=== PATIENT | female | born 1945 | race Caucasian/White ===

== ENCOUNTER → 2019-03-22 00:01 | Outpatient (RCR) | payer MEDICARE, SELFPAY | LOC: WOUND 02-22 12:59 | PROVIDERS: Family Provider Nurse Practitioner Family; Visit Provider Thoracic Surgery (Cardiothoracic Vascular Surgery) | DX: I73.9 Peripheral vascular disease, unspecified (principal); L97.812 Non-pressure chronic ulcer of other part of right lower leg with fat layer exposed | CPT/HCPCS: 11042 ×5; 11045 ==

== ENCOUNTER 2019-04-19 08:34 | Outpatient (RCR) | payer MEDICARE, SELFPAY | END 2019-04-22 23:59 | disposition home or self-care (01) | LOC: WOUND 08:34 | PROVIDERS: Family Provider Nurse Practitioner Family; Visit Provider Thoracic Surgery (Cardiothoracic Vascular Surgery) | DX: I73.9 Peripheral vascular disease, unspecified (principal); L97.812 Non-pressure chronic ulcer of other part of right lower leg with fat layer exposed | CPT/HCPCS: 11042; 97597 ==

== ENCOUNTER 2019-05-17 08:37 | Outpatient (RCR) | payer MEDICARE, SELFPAY ==
--- NOTE | 2019-04-26 09:25 | USCV_ITS ---
Gabriella Hidalgo Age: 73 Gender: F : 1945 Exam Date: 04/26/2019 09:47 Ordering Phys: Augusto Biswas MD (Andy) ([email or web address]) Technologist: Bang Henriquez Exam Location: [facility] – [place] Indication: HISTORY: Lower extremity edema. PROCEDURES: Right duplex Venous Insufficiency study of the Deep and Superficial systems was carried out according to normal protocol with the patient in supine positon for deep system and dependent position for the superficial system. FINDINGS: All deep veins demonstrated compressibility without evidence of intraluminal thrombus or increased echogenicity. Spectral analysis of Doppler signals demonstrates normal response to compression maneuvers indicating patency without obstruction. Reflux determinations were made with the patient in the dependent position, the weight being on the contralateral leg. No notable reflux was seen at this time. The veins were found to be easily compressible with spontaneous blood flow. Non pulsatile flow pattern. CONCLUSIONS No evidence of DVT in the above-mentioned identifiable veins. No significant venous reflux was noted on the right side. The venous dimensions and the depth from the surface are as mentioned above Dr Reginald Zaldivar MD FACC (Electronically Signed) Final Date: 26 April 2019 19:11 S
== END 2019-05-21 23:59 | disposition home or self-care (01) ==
LOC: WOUND 08:37
PROVIDERS: Family Provider Nurse Practitioner Family; Visit Provider Thoracic Surgery (Cardiothoracic Vascular Surgery)
DX: R60.9 Edema, unspecified (principal); I73.9 Peripheral vascular disease, unspecified; L97.812 Non-pressure chronic ulcer of other part of right lower leg with fat layer exposed
CPT/HCPCS: 11042; 93971

== ENCOUNTER 2019-06-21 07:58 | Outpatient (RCR) | payer MEDICARE, SELFPAY | END 2019-06-21 23:59 | disposition home or self-care (01) | LOC: WOUND 07:58 | PROVIDERS: Family Provider Nurse Practitioner Family; Visit Provider Thoracic Surgery (Cardiothoracic Vascular Surgery) | DX: I73.9 Peripheral vascular disease, unspecified (principal); L97.812 Non-pressure chronic ulcer of other part of right lower leg with fat layer exposed | CPT/HCPCS: 11042 ==

== ENCOUNTER 2019-07-05 07:45 | Outpatient (RCR) | payer MEDICARE, SELFPAY | END 2019-07-21 23:59 | disposition home or self-care (01) | LOC: WOUND 07:45 | PROVIDERS: Family Provider Nurse Practitioner Family; Visit Provider Thoracic Surgery (Cardiothoracic Vascular Surgery) | DX: Z09 Encounter for follow-up examination after completed treatment for conditions other than malignant neoplasm (principal) | CPT/HCPCS: 99211; 99212 ==

== ENCOUNTER → 2020-07-30 11:37 | Outpatient (BNVA) | payer MEDICARE, SELFPAY | PROVIDERS: Family Provider Nurse Practitioner Family; Visit Provider Nurse Practitioner Family | DX: M25.561 Pain in right knee (principal); M11.261 Other chondrocalcinosis, right knee | CPT/HCPCS: 73562 ==

== ENCOUNTER → 2020-08-13 10:45 | Outpatient (BNVA) | payer MEDICARE, SELFPAY | PROVIDERS: Family Provider Nurse Practitioner Family; PCP Nurse Practitioner Family; Referring Provider Nurse Practitioner Family; Visit Provider Podiatrist Foot & Ankle Surgery | DX: M79.671 Pain in right foot (principal) | CPT/HCPCS: 73630 ==

== ENCOUNTER 2020-09-12 08:24 | Outpatient (CLI) | payer MEDICARE, SELFPAY ==
--- NOTE | 2020-09-12 08:41 | NM_ITS ---
WS: [id number] NUCLEAR MEDICINE WHOLE BODY BONE SCAN HISTORY: PAIN IN JOINT MULTIPLE SITES COMPARISON: None available. TECHNIQUE: The patient was injected with 6.1 mCi of Technetium 99m HDP and serial whole-body scintigr ams have been performed with anterior and posterior images. Moderate increased uptake along the disc space of L3-4. This corresponds to severe degenerative disc disease with joint space narrowing and subchondral cystic changes by the recent CT. There is addition al very minimal increased uptake in the lower cervical region which is probably degenerative. Increas ed uptake in the RIGHT knee along the medial tibial plateau. Otherwise soft tissue uptake is normal. There is uptake within the kidneys bilaterally NM/NM bone scan whole body* [id number] IMPRESSION: 1. Moderate increased uptake within the L3-4 disc space. Recommend follow-up M RI with and without contrast of the lumbar spine to exclude discitis and osteom yelitis. 2. Increased uptake in the medial RIGHT tibial plateau. Osteopenia is seen on a recent radiograph. No history of recent trauma or fall. Consider follow-up MR I RIGHT knee with and without contrast to exclude osteomyelitis.
--- NOTE | 2020-09-12 08:41 | XR_ITS ---
WS: [id number] Chest 2 views, 09/12/2020 Clinical Data: CIGARETTE SMOKER/ELEVATED C REACTIVE PROTEIN Comparison: PA and lateral chest, 05/26/2017. Findings: No nodules, masses or effusions are seen. The heart is normal. The pulmonary vascularity is not increased. No pneumonia or pneumothorax is seen. The aortic arch and descending aorta show calci fication and tortuosity. The diaphragms are flattened. The patient has had an anterior and posterior cervical fusion. XR/XR chest 2V* [id number] Impression: Atherosclerosis and hyperinflation.
--- NOTE | 2020-09-12 08:41 | CT_ITS ---
WS: [id number] CT ABDOMEN WITHOUT CONTRAST HISTORY: C-REACTIVE PROTEIN,SERUM,ELEVATED Contiguous single phase 5 mm axial imaging performed to the abdomen. Oral contrast has been provided. Coronal and sagittal reformats are submitted. All CT scans at [facility] use at least on e of these dose optimization techniques: automated exposure control; mA and/or kV adjustment per adal ent size (includes targeted exams where dose is matched to clinical indication); or iterative reconst ruction. CONTRAST: None DLP: 605.44 mGy.cm COMPARISON: None available. Lower thorax: 2 adjacent 3 mm nodules at the RIGHT lung base are new since 12/09/2018. Moderate enlarg ement of the heart. Small pericardial effusion. Liver: Normal. No intrahepatic dilatation. Gallbladder: Normal. Pancreas: Poorly visualized pancreas. No abnormality identified. Spleen: Normal. Adrenals: Normal. Right kidney: Mild perinephric stranding. No obstruction. Left kidney: Mild perinephric stranding with no obstruction. Aorta: Moderate atherosclerotic plaque with no aneurysm. GI tract: Visualized colon within the abdomen demonstrates significant constipation. No obstructive p attern. No adenopathy identified on this unenhanced study. Abdominal wall: No hernia. Visualized osseous structures: Advanced degenerative disc disease in the lumbar spine. Vacuum disc ph enomenon at L1-2, L2-3 and L3-4. Severe disc space narrowing at L2-3 and L3-4. CT/CT abdomen wo con [id number] IMPRESSION: 1. Mild bilateral perinephric stranding with no renal obstruction. 2. Constipation. 3. Severe degenerative disc disease at L2-3 and L3-4. 4. Moderate atherosclerosis aorta. 5. New, subcentimeter noncalcified nodules at the RIGHT lung base. Recommend f ollow-up chest CT in 12 months.
[2020-09-12] MEDS: iohexol 300 mg/mL 50 mL Btl PO (10:53)
== END 2020-09-12 08:25 | disposition home or self-care (01) ==
PROVIDERS: PCP Nurse Practitioner Family; Visit Provider Nurse Practitioner Family
DX: F17.210 Nicotine dependence, cigarettes, uncomplicated (principal); M25.50 Pain in unspecified joint; R79.82 Elevated C-reactive protein (CRP); I70.90 Unspecified atherosclerosis; K59.00 Constipation, unspecified; M51.36 Other intervertebral disc degeneration, lumbar region; I70.0 Atherosclerosis of aorta; R91.8 Other nonspecific abnormal finding of lung field
CPT/HCPCS: 71046; 74150; 78306; A9561

== ENCOUNTER 2020-09-27 18:47 | Inpatient (IN) | payer MEDICARE, SELFPAY ==
[2020-09-27 18:54] VITALS: BP 181/63; PULSE 62; RESP 16; TEMP 36.6; O2SAT 93; BMI 20.7
--- NOTE | 2020-09-27 19:11 | XRR_ITS ---
PROCEDURE INFORMATION: Exam: XR Left Tibia and Fibula Exam date and time: 09/27/2020 7:11 PM Age: 75 years old Clinical indication: Pain; Lower leg; Left; Additional info: Fall, injury TECHNIQUE: Imaging protocol: XR Left tibia and fibula. Views: 2 views. COMPARISON: 1. CTA AbdAorta Runoff Leg [id number] 12/09/2018 9:48 AM 2. CR (LOW EXM, ) 09/27/2020 7:26:32 PM FINDINGS: Bones/joints: No fracture or dislocation. Soft tissues: Soft tissues unremarkable. XR/XR tibia fibula LT 2V [id number] IMPRESSION: No acute radiographic findings.
--- NOTE | 2020-09-27 19:11 | XRR_ITS ---
PROCEDURE INFORMATION: Exam: XR Right Hip Exam date and time: 09/27/2020 7:11 PM Age: 75 years old Clinical indication: Hip pain; Right hip; Additional info: Injury, fall, add pelvis TECHNIQUE: Imaging protocol: XR Right hip. Views: 1 view hip with pelvis when performed. Other technique: COMPARISON MORE: CTA AbdAorta Runoff Leg [id number] 12/09/2018 9:48:12 AM COMPARISON: No relevant prior studies available. FINDINGS: Bones/joints: No evidence of fracture or dislocation. Soft tissues: No acute soft tissue abnormality. XR/XR hip RT 2-3V wo/w pel* [id number] IMPRESSION: No acute radiographic findings.
--- NOTE | 2020-09-27 19:11 | ED_ITS ---
HPI - Fall General: Chief Complaint: Fall Stated Complaint: FALL/ HIP PAIN/ ELBOW PAIN Time Seen by Provider: 09/27/20 19:01 History of Present Illness: HPI Narrative: 75-year-old female comes in today for trip and fall. Patient was walking up the sidewalk to go back in the house when she missed stepped causing her to fall onto her right side. Patient has some abrasions to the right forearm and upper arm with ecchymosis. Patient reports pain to the right hip area. Patient also has some tenderness to the left ankle. Patient has a history of fibromyalgia, GERD, overactive bladder, and restless legs. Patient takes no medication for her blood pressure. Patient does report taking a baby aspirin daily. Patient received medication in route for pain in the ambulance. Patient responds appropriately to questions. Patient appears well. Patient appears in mild to moderate pain at this time. Review of Systems General: Reports: 10 or more systems reviewed and unremarkable except in HPI and below Musc: Reports: other (Right hip pain, left ankle pain.) Skin/Breast: Reports: other (Bruising and skin tears to the right arm.) [facility] [place] ED PFSH: Medical History Fibromyalgia Social History Smoking and tobacco status: current every day smoker Physical Exam Const: COMMON NORMALS: no acute distress and patient oriented x3 GENERAL APPEARANCE: cooperative HENMT: COMMON NORMALS: normocephalic and Normal external nose present HEAD & SCALP: normal to inspection and normocephalic NOSE: Normal external nose present MOUTH: Normal oral and palatal mucosa present Eye: GENERAL EYE: appearance normal, both eyes and all related structures Neck/C-Spine: COMMON NORMALS: full ROM Chest: COMMONS NORMALS: normal inspection of the chest Resp: COMMON NORMALS: normal respiratory effort EFFORT & INSPECTION: Yes able to speak in complete sentences Cardio: COMMON NORMALS: regular rate and regular rhythm RATE: regular rate RHYTHM: regular rhythm GI: COMMON NORMALS: non-tender : COMMON NORMALS: Yes no CVA tenderness BLADDER/KIDNEY EXAM: Yes no CVA tenderness Back/Pelvis: COMMON NORMALS: no CVA tenderness and thoracic and lumbar spine normal to inspection Extremity: NARRATIVE EXTREMITY EXAM: Tenderness to the right pelvis hip area. Swelling is noted to the left ankle. Bruising is noted to the left lower leg. Neuro: COMMON NORMALS: patient oriented x3 and moves all extremities Psych: COMMON NORMALS: mental status grossly normal and cooperative Skin: NARRATIVE SKIN EXAM: Abrasions and skin tears are noted to the right upper and lower arm. Course Vital Signs: Vital signs: Vital Signs Temperature 97.8 F 09/27/20 18:54 Pulse Rate 91 09/27/20 23:26 Respiratory Rate 17 09/27/20 23:26 Blood Pressure 208/76 09/27/20 23:26 Pulse Oximetry 97 09/27/20 23:26 MDM - Fall MDM Narrative: Medical decision making narrative: Patient came in for evaluation after a slip and fall at home. Patient reports right hip pain. On exam patient is guarded with any movement to the right hip. Distal pulses are intact. There is no swelling in the left lower leg also. Patient has some skin tears to the right upper arm and right mid arm. Differential diagnosis includes hip fracture, contusion, sprain. X-ray of the hip was inconclusive but patient remained in pain without any relief. CT scan was ordered and noted a minimally displaced comminuted fracture of the intertrochanteric hip. I reviewed this with Dr. Page who recommended we talked to Dr. Hill to admit patient for repair of the hip. Lab Data: Labs: Lab Results 09/27/20 09/27/20 Range/Units 17:50 17:50 WBC 9.1 (4.0-10.0) 10^3/ uL RBC 3.44 L (4.1-5.3) 10^6/u L Hgb 9.8 L (11.5-15.3) g/dL Hct 32.5 L (37.0-47.0) % MCV 94.5 (81-99) fL MCH 28.5 (28.0-34.0) pg MCHC 30.2 (30.0-36.0) g/dL RDW 13.4 (12.1-15.1) % Plt Count 402 H (130-400) 10^3/c mm MPV 10.3 (7.4-10.4) fL Neut % (Auto) 68.7 % Lymph % (Auto) 20.5 % [place] % (Auto) 8.0 % Eos % (Auto) 1.6 % Baso % (Auto) 0.8 % Neut # (Auto) 6.24 (1.8-7.7) 10^3/u L Lymph # (Auto) 1.9 (0.8-4.8) 10^3/u L [place] # (Auto) 0.7 (0.2-0.9) 10^3/u L Eos # (Auto) 0.2 (0.0-0.8) 10^3/u L Baso # (Auto) 0.1 (0.0-0.1) 10^3/u L Nucleated RBC % (a uto) 0 % Nucleated RBCs # 0.0 /100WBC Sodium 139 (136-145) mmol/L Potassium 4.3 (3.5-5.1) mmol/L Chloride 102 (98-107) mmol/L Carbon Dioxide 27 (22-29) mmol/L Anion Gap 14.3 (5-19) BUN 16 (8-23) mg/dL Creatinine 1.3 H (0.5-0.9) mg/dL GFR Calculation Not Reportable Glucose 98 (65-115) mg/dL Calculated Osmolal ity 289 (285-295) mOsm/k g Calcium 9.7 (8.5-10.5) mg/dL Total Bilirubin 0.2 (0.15-1.2) mg/dL AST 12 (0-32) U/L ALT 7 (0-33) U/L Alkaline Phosphata se 103 (35-105) IU/L Total Protein 6.4 L (6.6-8.7) g/dL Albumin 3.5 (3.5-5.2) g/dL Globulin 2.9 (1.3-4.6) g/dL Discharge Plan Discharge Prescriptions: No Action mupirocin 2 % ointment 1 applic topical TID Qty: 22 RF: 2 terbinafine HCl [Lamisil AT] 1 % cream 1 applic topical BID RF: 0 terbinafine HCl 250 mg tablet 250 mg PO DAILY RF: 0 clindamycin HCl 300 mg capsule 300 mg PO BID RF: 0 mupirocin 2 % ointment 1 applic topical TID RF: 0 pramipexole [Mirapex] 0.125 mg tablet 0.125 mg PO DAILY RF: 0 lisinopril-hydrochlorothiazide 10-12.5 mg tablet 1 tab PO DAILY RF: 0 folic acid 1 mg tablet 1 mg PO DAILY RF: 0 megestrol 40 mg tablet 40 mg PO DAILY RF: 0 omeprazole 20 mg capsule,delayed release(DR/EC) 20 mg PO BID RF: 0 naproxen 500 mg tablet 500 mg PO BID RF: 0 Asmanex Twisthaler 220 mcg/ actuation (120) aerosol powdr breath activated 2 inh inhalation BID RF: 0 montelukast [Singulair] 10 mg tablet 10 mg PO DAILY RF: 0 furosemide 40 mg tablet 40 mg PO DAILY RF: 0 tramadol 50 mg tablet 50 mg PO BID PRNRF: 0 Coding Level of Care Code ED Clinical Dental Technician for Antoling Fwd Exam Comprehensive
--- NOTE | 2020-09-27 19:13 | XRR_ITS ---
PROCEDURE INFORMATION: Exam: XR Right Knee Exam date and time: 09/27/2020 7:13 PM Age: 75 years old Clinical indication: Pain; Knee; Right; Additional info: Fall injury TECHNIQUE: Imaging protocol: XR Right knee. Views: 3 views. COMPARISON: 1. CTA AbdAorta Runoff Leg [id number] 12/09/2018 9:48 AM 2. CR XR hip RT 2-3V wo/w pel* [id number] 09/27/2020 7:21:35 PM 3. CR XR tibia fibula LT 2V [id number] 09/27/2020 7:17:58 PM FINDINGS: Bones/joints: No fracture or dislocation. Narrowing of the lateral compartment of the knee with small osteophytes. Soft tissues: No acute findings. Surgical clips and vascular graft incidentally noted. XR/XR knee RT 3V* [id number] IMPRESSION: No acute radiographic findings.
[2020-09-27 19:59] VITALS: BP 191/72; PULSE 75; RESP 17; O2SAT 92
--- NOTE | 2020-09-27 20:15 | CTR_ITS ---
PROCEDURE INFORMATION: Exam: CT Right Lower Extremity Without Contrast, Hip Exam date and time: 09/27/2020 8:15 PM Age: 75 years old Clinical indication: Injury or trauma; Blunt trauma; Right; Prior surgery; Surgery type: Femoral stent. ; Patient HX: Fall. C/O RT hip pain. ; Additional info: Fall injury, inconclusive xray TECHNIQUE: Imaging protocol: CT of the Right lower extremity without contrast was performed. Exam focused on the hip. Sagittal and coronal reformatted images were created and reviewed. Radiation optimization: All CT scans at this facility use at least one of these dose optimization techniques: automated exposure control; mA and/or kV adjustment per patient size (includes targeted exams where dose is matched to clinical indication); or iterative reconstruction. COMPARISON: 1. CTA AbdAorta Runoff Leg [id number] 12/09/2018 9:48 AM 2. CR XR hip RT 2-3V wo/w pel* [id number] 09/27/2020 7:21:35 PM RADIATION DOSE METRICS: Total DLP (mGy-cm): 374.18 FINDINGS: Bones/joints: There is a mildly comminuted and mildly displaced intertrochanteric fracture of the right femur. Small osteophytes at the the right acetabulum. Bones are diffusely osteopenic. Small right hip joint effusion. Soft tissues: Mild soft tissue swelling around the proximal right femur. No radiopaque foreign body. Vasculature: There is a long stent in the visualized right femoral artery. Lymph nodes: No lymphadenopathy. Urinary bladder: The bladder is incompletely filled, which can limit evaluation. No focal abnormality in the bladder however. Reproductive: Patient has had a previous hysterectomy. The ovaries are not definitely visualized, not an expected in a postmenopausal female. This may be due to ovarian atrophy. Alternatively, the patient may have had a previous bilateral oophorectomy. CT/CT hip RT wo con* [id number] IMPRESSION: 1. Mildly comminuted and mildly displaced intertrochanteric fracture of the right femur. 2. Small right hip joint effusion. 3. Mild soft tissue swelling around the proximal right femur. 4. Incidental/nonacute findings are listed in the report. Radiation Dose CTDIVOL = (mGy): DLP = 374.18 (mGy-cm)
[2020-09-27] MEDS: ondansetron 2 mg/ML SDV 2 mL 4 MG IVP (22:09)
[2020-09-27] MEDS: morphine 4 mg/mL SDV 1 mL 2 MG IVP (22:10)
[2020-09-27 22:11] VITALS: BP 159/109; PULSE 93; RESP 19; O2SAT 92
--- NOTE | 2020-09-27 22:13 | PC.NURSE ---
patient placed on 2L oxygen via nasal cannula after morphine administration
--- NOTE | 2020-09-27 23:12 | XRR_ITS ---
PROCEDURE INFORMATION: Exam: XR Chest Exam date and time: 09/27/2020 11:12 PM Age: 75 years old Clinical indication: Injury or trauma; Fall; Blunt trauma (contusions or hematomas); Additional info: Hip fracture TECHNIQUE: Imaging protocol: XR of the chest. Views: 1 view. COMPARISON: CR XR chest 2V* [id number] 09/12/2020 9:10 AM FINDINGS: Lungs: Lungs are clear bilaterally. Pleural spaces: No pleural effusion. No pneumothorax. Heart/Mediastinum: Stable mild enlargement of the cardiac silhouette. Mediastinal contours are unremarkable. Vasculature: Stable vascular calcifications in the aorta. Bones/joints: No acute fracture. Bones are diffusely osteopenic. Degenerative changes in the spine and shoulders. XR/XR chest 1V portable [id number] IMPRESSION: 1. No acute cardiopulmonary process. 2. No acute fracture. 3. CT scan of the chest with contrast would be recommended if there is continuing clinical concern for thoracic injury. 4. Incidental/nonacute findings are listed in the report.
[2020-09-27] MEDS: morphine 4 mg/mL SDV 1 mL IVP (23:24)
[2020-09-27 23:25] LABS: Basophils # 0.1 10^3/uL (0.0-0.1); Basophils % 0.8 %; Eosinophils # 0.2 10^3/uL (0.0-0.8); Eosinophils % 1.6 %; Hematocrit 32.5 % (37.0-47.0); Hemoglobin 9.8 g/dL (11.5-15.3); Lymphocytes # 1.9 10^3/uL (0.8-4.8); Lymphocytes % 20.5 %; Mean Corpuscular HGB Conc 30.2 g/dL (30.0-36.0); Mean Corpuscular Hemoglobin 28.5 pg (28.0-34.0); Mean Corpuscular Volume 94.5 fL (81-99); Mean Platelet Volume 10.3 fL (7.4-10.4); Monocytes # 0.7 10^3/uL (0.2-0.9); Neutrophils # 6.24 10^3/uL (1.8-7.7); Neutrophils % 68.7 %; Nucleated Red Blood Cells % 0 %; Platelet Count 402 10^3/cmm (130-400); Red Blood Count 3.44 10^6/uL (4.1-5.3); Red Cell Distribution Width 13.4 % (12.1-15.1); White Blood Count 9.1 10^3/uL (4.0-10.0)
[2020-09-27 23:26] VITALS: BP 208/76; PULSE 91; RESP 17; O2SAT 97
[2020-09-27 23:35] LABS: Alanine Aminotransferase 7 U/L (0-33); Albumin Level 3.5 g/dL (3.5-5.2); Alkaline Phosphatase 103 IU/L (35-105); Anion Gap 14.3 (5-19); Aspartate Amino Transferase 12 U/L (0-32); Blood Urea Nitrogen 16 mg/dL (8-23); Calcium 9.7 mg/dL (8.5-10.5); Carbon Dioxide 27 mmol/L (22-29); Chloride 102 mmol/L (98-107); Globulin 2.9 g/dL (1.3-4.6); Glucose 98 mg/dL (65-115); Osmolality Calculated 289 mOsm/kg (285-295); Potassium 4.3 mmol/L (3.5-5.1); Sodium 139 mmol/L (136-145); Total Bilirubin 0.2 mg/dL (0.15-1.2); Total Protein 6.4 g/dL (6.6-8.7)
[2020-09-28] VITALS (30 sets, daily range): BP systolic 110–206; BP diastolic 62–118; PULSE 80–130; RESP 15–23; TEMP 36.3–38.1; O2SAT 89–100
--- NOTE | 2020-09-28 | SCC_ITS ---
Procedure Done: Excision right hip with intramedullary device 45.6 seconds of fluoroscopic guidance, for a cumulative dose of 3.15 mGy, was provided to Dr. Hill by the radiology department. C-arm images of the RIGHT hip were saved for the patient's permanent record. [facility]hl[facility]
--- NOTE | 2020-09-28 04:06 | PM.HP ---
Providers/Chief Complaint Admitting Physician: Yanique Anne MD Primary Care Provider: Crystal Mckee Chief Complaint: FALL/ HIP PAIN/ ELBOW PAIN History of Present Illness Gabriella Hidalgo is a 75 year old female who presented to the emergency room after a fall at home. She is not entirely sure what happened but she was walking into her house and she fell landing on her right side. She hit her arm and her hip and her foot. The hip was the primary point contact. Her was at home at the time. Ambulance was called and brought her in. They wrapped her upper extremity which had some bleeding abrasions/skin tears in gauze. In the emergency room she was found to have minimally displaced and comminuted intertrochanteric fracture of the right femur. She required a couple of doses of pain medications both in route and in the emergency room to get comfortable. She had multiple bruises to both lower extremities and upper extremities. After pain medication received in the emergency room is not able to really discern for me if she has had multiple falls lately or if this was the only 1. She denied any loss of consciousness, chest pain, palpitations or other preceding symptoms. She does not necessarily remember tripping over anything or her legs giving out. ER notes indicate that she missed stepped . Her pressures were elevated in the emergency room but did respond some to pain medications. She has no personal history of coronary artery disease, chronic kidney disease, bleeding problems. She does have a history of peripheral artery disease and underwent previous femoropopliteal bypass. She has hypertension that she does not chronically take medications for by her report Review of Systems Const: Denies: fever(s) or chills Eyes: Denies: change in vision ENMT: Denies: throat pain or nasal congestion Card: Denies: chest pain, palpitations or edema Resp: Reports: dyspnea (Sometimes, not acute) and productive cough (Sometimes, not new) GI: Denies: abdominal pain, nausea, vomiting, diarrhea or constipation : Reports: urinary frequency and urinary incontinence Musc: Reports: extremity pain and muscle cramps Skin/Breast: Denies: rash, pruritus or sores Neuro: Denies: headache(s), numbness in extremities or weakness in extremities Psych: Denies: anxiety Wesley/Lymph: Denies: easy bruising or easy bleeding Medications/Allergies Home Medications Medication Instructions Recorded Confirmed Last Taken Type clindamycin HCl 300 mg capsule 300 mg PO BID 08/13/20 09/05/20 Unknown History folic acid 1 mg tablet 1 mg PO DAILY 08/13/20 09/05/20 Unknown History furosemide 40 mg tablet 40 mg PO DAILY 08/13/20 09/05/20 Unknown History lisinopril 10 1 tab PO DAILY 08/13/20 09/05/20 Unknown History mg-hydrochlorothiazide 12.5 mg tablet megestrol 40 mg tablet 40 mg PO DAILY 08/13/20 09/05/20 Unknown History mometasone 2 inh INHALATION BID 08/13/20 09/05/20 Unknown History montelukast 10 mg tablet 10 mg PO DAILY 08/13/20 09/05/20 Unknown History mupirocin 2 % topical ointment 1 applic TOPICAL TID 08/13/20 09/05/20 Unknown History mupirocin 2 % topical ointment 1 applic TOPICAL TID #22 g 08/13/20 09/05/20 Unknown Rx naproxen 500 mg tablet 500 mg PO BID 08/13/20 09/05/20 Unknown History omeprazole 20 mg capsule,delayed 20 mg PO BID 08/13/20 09/05/20 Unknown History release pramipexole 0.125 mg tablet 0.125 mg PO DAILY 08/13/20 09/05/20 Unknown History terbinafine HCl 1 % topical cream 1 applic TOPICAL BID 08/13/20 09/05/20 Unknown History terbinafine HCl 250 mg tablet 250 mg PO DAILY 08/13/20 09/05/20 Unknown History tramadol 50 mg tablet 50 mg PO BID PRN 08/13/20 09/05/20 Unknown History Allergies Allergy/AdvReac Type Severity Reaction Status Date / Time cephalexin [From Keflex] Allergy Severe unknown Verified 09/27/20 19:02 zolpidem [From Ambien] Allergy Intermediate unknown Verified 09/27/20 19:02 PFSH Acute PFSH: Medical History (Updated 09/28/20 @ 04:52 by Yanique Anne MD) COVID-19 vaccine administered Kadeem & Kadeem Fibromyalgia Hypertension Osteoarthritis Overactive bladder PAD (peripheral artery disease) RLS (restless legs syndrome) Surgical History (Updated 09/28/20 @ 04:11 by Yanique Anne MD) History of hysterectomy History of neck surgery S/P femoral-popliteal bypass surgery Family History (Updated 09/28/20 @ 04:47 by Yanique Anne MD) Other Heart disease Hypertension Stroke Denies family history of Anesthesia complication Bleeding disorder Social History (Updated 09/28/20 @ 04:47 by Yanique Anne MD) Smoking and tobacco status: former smoker Quit status (tobacco): has quit using tobacco Former quit date comment: Quit smoking 1 month ago Alcohol intake: current Alcohol intake frequency: holidays/special occasions only Substance/Drug Use: never Marital status: Vitals/I&O/Wt Last Vital Signs Temp 97.8 F 09/27/20 18:54 Pulse 91 09/27/20 23:26 Resp 17 09/27/20 23:26 BP 208/76 09/27/20 23:26 Pulse Ox 97 09/27/20 23:26 Weight last 48 hrs Weight 49.895 kg Physical Exam Narrative: EXAM NARRATIVE: Constitutional: Sleepy from pain medication but when can awake and alert and oriented, thin build HEENT: Normocephalic, atraumatic, pupils are not pinpoint, equal, extraocular movements intact, oropharynx clear Neck: Supple Respiratory: Clear to auscultation bilaterally Cardiovascular: Regular rate and rhythm, occasional extra beat, no murmurs Abdomen: Soft, nontender, hypoactive bowel sounds : Bolton catheter, normal external genitalia Extremities: Right upper extremity with some swelling around the elbow but no significant pain with movement or palpation of olecranon process, right lower extremity is currently internally rotated, able to move feet, some swelling in areas of bruises Skin: Skin tears to right upper extremity between elbow and shoulder with adherent gauze at the time of my examination, did not remove until we can get dressing moist to evaluate. There is abrasion/skin tear at the left elbow without active bleeding, dried blood. Other bruising noted to right forearm and to a lesser degree left forearm. Patient has bruising to both lower extremities. The left medial elam near the tibial plateau with some swelling at the site of a hematoma and scattered ecchymoses around this. Right elam with ecchymoses and bruising without the same degree of swelling. Neuro: Currently sleepy from pain medications but speech is clear, face symmetric, toes are downgoing, able to move both arms and feet Urinary Catheter Management^: Bolton: Cath Placed During This Visit: yes Urinary Catheter Date of Insertion: 09/28/20 Urinary Catheter Time of Insertion: 03:20 Data : 09/27/20 17:50 09/27/20 17:50 A&P Assessment and plan (1) Fall at home: Sounds mechanical by description Status: Acute Qualifiers: Encounter type: initial encounter Qualified Code(s): W19.XXXA - Unspecified fall, initial encounter; Y92.009 - Unspecified place in unspecified non-institutional (private) residence as the place of occurrence of the external cause (2) Intertrochanteric fracture of right femur: Status: Acute Qualifiers: Encounter type: initial encounter Fracture type: closed Fracture alignment: displaced Qualified Code(s): S72.141A - Displaced intertrochanteric fracture of right femur, initial encounter for closed fracture (3) Hypertension: Currently not controlled, exacerbated by pain Status: Chronic Qualifiers: Hypertension type: essential hypertension Qualified Code(s): I10 - Essential (primary) hypertension (4) PAD (peripheral artery disease): With a history of femoropopliteal bypass Status: Chronic (5) Fibromyalgia: Status: Chronic (6) Nicotine dependence, cigarettes, in remission: Recently quit Status: Chronic Additional A&P Information Inpatient admission Pain control Orthopedic consultation for surgical evaluation Monitor blood pressures with pain medications and initiate treatment if needed IV fluids this evening Bolton catheter Check UA and EKG Type and screen SCDs for DVT prophylaxis Need to clarify home medications and address accordingly postoperatively Monitor respiratory status child protective 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 Plan for orthopedic consultation, surgical intervention and pain control. Comorbid issues and other plans as noted above. Coding Level of Care Code Acute Measurement Advisor for Chg Fwd Diagnoses Fall at home W19.XXXA; Y92.009 Encounter type: initial encounter Intertrochanteric fracture of right femur S72.141A Encounter type: initial encounter Fracture type: closed Fracture alignment: displaced Hypertension I10 Hypertension type: essential hypertension PAD (peripheral artery disease) I73.9 Fibromyalgia M79.7 Nicotine dependence, cigarettes, in remission F17.211
--- NOTE | 2020-09-28 04:30 | ECG_ITS ---
[facility] Test Date: 2020-09-28 Pat Name: Gabriella Hidalgo Department: Room: ED Gender: Female Re Etcher: : 1945 Requested By: Yanique Anne Order Number: [id number] Reading MD: MONE LESTER Measurements Intervals [place] Rate: 83 P: 73 TX: 166 QRS: 60 QRSD: 87 T: 72 QT: 350 QTc: 413 Interpretive Statements SINUS RHYTHM WITH OCCASIONAL SUPRAVENTRICULAR PREMATURE COMPLEXES POSSIBLE LEFT ATRIAL ENLARGEMENT [-0.1mV P WAVE IN V1/V2] ANTEROSEPTAL MYOCARDIAL INFARCTION [40+ ms Q WAVE IN V1-V4], OF INDETERMINATE AGE MODERATE T-WAVE ABNORMALITY, CONSIDER LATERAL ISCHEMIA [-0.1+ mV T WAVE IN I/aVL/V5/V6] Compared to ECG 02/28/2019 13:33:55 T-wave abnormality now present Possible ischemia now present Myocardial infarct finding still present Electronically Signed On 09-28-2020 14:30:10 CDT by MONE LESTER [email or web address]
[2020-09-28 06:26] LABS: Basophils # 0.1 10^3/uL (0.0-0.1); Basophils % 0.6 %; Eosinophils % 0.1 %; Hematocrit 34.6 % (37.0-47.0); Hemoglobin 10.8 g/dL (11.5-15.3); Lymphocytes # 0.9 10^3/uL (0.8-4.8); Lymphocytes % 6.1 %; Mean Corpuscular HGB Conc 31.2 g/dL (30.0-36.0); Mean Corpuscular Hemoglobin 28.6 pg (28.0-34.0); Mean Corpuscular Volume 91.8 fL (81-99); Mean Platelet Volume 9.9 fL (7.4-10.4); Monocytes # 0.9 10^3/uL (0.2-0.9); Monocytes % 6.6 %; Neutrophils # 12.07 10^3/uL (1.8-7.7); Neutrophils % 86.2 %; Nucleated Red Blood Cells % 0 %; Platelet Count 366 10^3/cmm (130-400); Red Blood Count 3.77 10^6/uL (4.1-5.3); Red Cell Distribution Width 13.2 % (12.1-15.1)
[2020-09-28 06:34] LABS: Add Urine Microscopic? YES; Bacteria Urine 2+ /hpf; Bilirubin Urine Neg (Negative); Blood Urine 2+ (Negative); Glucose Urine UA Norm (Normal); Ketones Urine Negative (Negative); Leukocyte Esterase Urine Negative (Negative); Nitrate Urine Positive (Negative); Protein Urine Neg (Negative); Squamous Epithelial Cell Urine 0-4 /hpf (0-5); Sulfosalicylic Acid Urine Negative (Negative); Urine Appearance Clear (CLEAR); Urine Color Straw (Yellow); Urobilinogen Urine Norm (Negative); WBC Urine 15-25 /hpf (0-5); pH Urine 8 (5-7)
[2020-09-28 06:35] LABS: Add Urine Culture? Yes
--- NOTE | 2020-09-28 07:45 | P.CONIM_ITS ---
Providers/Reason For Consult Consulting Physician/Specialty*: MD Liz; orthopedic surgery Reason for Consult*: Right intertrochanteric hip fracture Attending Physician: Yanique Anne MD Primary Care Provider: Crystal Mckee History of Present Illness History of Present Illness Gabriella Hidalgo is a 75 year old female I have seen in the past for right lower extremity and degenerative changes in her knee. She currently fell yesterday outside on her right hip with immediate pain and inability to bear weight she was transferred to our emergency room where radiographs and a CT scan of the hip were obtained revealing a right intertrochanteric hip fracture. She describes a abrasion to her right arm but really no other extremity pain. She currently is in the emergency room where she is awaiting a bed for admission. She has a quite sedate and gives no contributing history Meds/Allergies Home Medications and Allergies Home Medications Medication Instructions Recorded Confirmed Last Taken Type clindamycin HCl 300 mg capsule 300 mg PO BID 08/13/20 09/05/20 Unknown History folic acid 1 mg tablet 1 mg PO DAILY 08/13/20 09/05/20 Unknown History furosemide 40 mg tablet 40 mg PO DAILY 08/13/20 09/05/20 Unknown History lisinopril 10 1 tab PO DAILY 08/13/20 09/05/20 Unknown History mg-hydrochlorothiazide 12.5 mg tablet megestrol 40 mg tablet 40 mg PO DAILY 08/13/20 09/05/20 Unknown History mometasone 2 inh INHALATION BID 08/13/20 09/05/20 Unknown History montelukast 10 mg tablet 10 mg PO DAILY 08/13/20 09/05/20 Unknown History mupirocin 2 % topical ointment 1 applic TOPICAL TID 08/13/20 09/05/20 Unknown History mupirocin 2 % topical ointment 1 applic TOPICAL TID #22 g 08/13/20 09/05/20 Unknown Rx naproxen 500 mg tablet 500 mg PO BID 08/13/20 09/05/20 Unknown History omeprazole 20 mg capsule,delayed 20 mg PO BID 08/13/20 09/05/20 Unknown History release pramipexole 0.125 mg tablet 0.125 mg PO DAILY 08/13/20 09/05/20 Unknown History terbinafine HCl 1 % topical cream 1 applic TOPICAL BID 08/13/20 09/05/20 Unknown History terbinafine HCl 250 mg tablet 250 mg PO DAILY 08/13/20 09/05/20 Unknown History tramadol 50 mg tablet 50 mg PO BID PRN 08/13/20 09/05/20 Unknown History Allergies Allergy/AdvReac Type Severity Reaction Status Date / Time cephalexin [From Keflex] Allergy Severe unknown Verified 09/27/20 19:02 zolpidem [From Ambien] Allergy Intermediate unknown Verified 09/27/20 19:02 PFSH Acute PFSH: Medical History (Updated 09/28/20 @ 04:52 by Yanique Anne MD) COVID-19 vaccine administered Kadeem & Kadeem Fibromyalgia Hypertension Osteoarthritis Overactive bladder PAD (peripheral artery disease) RLS (restless legs syndrome) Surgical History (Updated 09/28/20 @ 04:11 by Yanique Anne MD) History of hysterectomy History of neck surgery S/P femoral-popliteal bypass surgery Family History (Updated 09/28/20 @ 04:47 by Yanique Anne MD) Other Heart disease Hypertension Stroke Denies family history of Anesthesia complication Bleeding disorder Social History (Updated 09/28/20 @ 04:47 by Yanique Anne MD) Smoking and tobacco status: former smoker Quit status (tobacco): has quit using tobacco Former quit date comment: Quit smoking 1 month ago Alcohol intake: current Alcohol intake frequency: holidays/special occasions only Substance/Drug Use: never Marital status: Vitals/I&O/Wt Last Vital Signs Temp 97.8 F 09/27/20 18:54 Pulse 89 09/28/20 06:11 Resp 19 H 09/28/20 06:11 BP 189/65 09/28/20 06:11 Pulse Ox 100 09/28/20 06:11 09/27/20 09/28/20 09/28/20 22:59 06:59 14:59 Output Total 450 / 450 Balance -450 / -450 Weight last 48 hrs Weight 110 lb Physical Exam Narrative: EXAM NARRATIVE: The patient is arousable the patient is arousable to voice but sleepy HEAD: Normocephalic/atraumatic. NECK: Soft supple nontender. HEART: Normal heart sounds, regular rhythm. CHEST: Clear to auscultation. ABDOMEN: Soft nontender nondistended. RIGHT HIP: There is no visible malalignment of the right hip. She has exquisite pain with motion of the right hip. She will flex extend her toes on the right ankle. Sensation is intact to light touch. Urinary Catheter Management^: Bolton: Cath Placed During This Visit: yes Urinary Catheter Date of Insertion: 09/28/20 Urinary Catheter Time of Insertion: 03:20 Data Imaging^: Xray Ortho: My impression: I personally reviewed radiographs of the but I can see no evidence of fracture. Other CT: My impression: I reviewed a CT scan of the right hip. The patient has a nondisp laced right intertrochanteric hip fracture A&P Assessment and plan (1) Intertrochanteric fracture of right femur: I discussed options with the patient.. I told the patient we could treat this nonoperatively but certainly they would be at risk for medical problems without surgery. Theywould have problems with pain that would require narcotics for pain control. 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 I discussed surgical intervention with the patient. I told them with open reduction internal fixation they should be able to be mobilized and resume ambulatory status. We can eliminate the problems associated with prolonged bed rest and would have better control of pain. Certainly there would be inherent risk with surgery. These would would include the risk of cardiac complications, stroke, infection, and even . I discussed risk of any orthopedic implant including nonunion, malunion, a component failure. I discussed the possible need for component removal. I discussed risk of deep venous thromboses and pulmonary emboli that are present with any treatment and the importance of DVT prophylaxis. The patient expressed good understanding of alternative treatments, seem to comprehend, and agrees to surgical intervention. Status: Acute Qualifiers: Encounter type: initial encounter Fracture type: closed Fracture alignment: displaced Qualified Code(s): S72.141A - Displaced intertrochanteric fracture of right femur, initial encounter for closed fracture Coding Level of Care Code Acute Nitrator Operator for [facility] Carolyne Diagnoses Intertrochanteric fracture of right femur S72.141A Encounter type: initial encounter Fracture type: closed Fracture alignment: displaced
--- NOTE | 2020-09-28 10:16 | P.ANESASSM_ITS ---
Pre-Anesthetic Assessment Pre-Anesthetic Assessment: Height/Weight: Height 1.55 m Weight 49.895 kg Temp Pulse Resp BP Pulse Ox 97.8 F 89 19 H 189/65 100 09/27/20 18:54 09/28/20 06:11 09/28/20 06:11 09/28/20 06:11 09/28/20 06:11 Preop Diagnosis: Hip fracture Proposed Procedure: Operation Date: 09/28/20 10:00 Proposed Procedures p Trochanteric Femoral Nail(Right) - Wili Hill MD Familial anesthetic complications: none Was Beta Arnulfo taken within 24 hours: N/A Was Clonidine taken within 24 hours: N/A Last intake: > 8 hrs Social: Social History: No alcohol and No tobacco Exam: Pre-Anes Outpt Exam: alert, oriented x 3, clear to auscultation bilaterally and regular rate & rhythm Airway: Cervical ROM: WNL MP: 3 Dentition: False CV/HEM: CV/HEM: HTN and PVD (hx femoral popliteal bypass) GI: GI: GERD Musc/skel: Musc/skel: Fibromyalgia Anesthetic Plan: ASA status: 3 Anesthesia: General Risk of > 500 ml blood loss (7ml/kg in children): No PFSH Anesthesia PFSH: Medical History (Updated 09/28/20 @ 04:52 by Yanique Anne MD) COVID-19 vaccine administered Kadeem & Kadeem Fibromyalgia Hypertension Osteoarthritis Overactive bladder PAD (peripheral artery disease) RLS (restless legs syndrome) Surgical History (Updated 09/28/20 @ 04:11 by Yanique Anne MD) History of hysterectomy History of neck surgery S/P femoral-popliteal bypass surgery Family History (Updated 09/28/20 @ 04:47 by Yanique Anne MD) Other Heart disease Hypertension Stroke Denies family history of Anesthesia complication Bleeding disorder Social History (Updated 09/28/20 @ 04:47 by Yanique Anne MD) Smoking and tobacco status: former smoker Quit status (tobacco): has quit using tobacco Former quit date comment: Quit smoking 1 month ago Alcohol intake: current Alcohol intake frequency: holidays/special occasions only Substance/Drug Use: never Marital status: Data Anesthesia CBC & Chem 7: 09/28/20 06:06 09/27/20 17:50 Other Labs: Laboratory Results - last 48 hr 09/27/20 09/27/20 09/28/20 17:50 17:50 06:02 WBC 9.1 RBC 3.44 L Hgb 9.8 L Hct 32.5 L MCV 94.5 MCH 28.5 MCHC 30.2 RDW 13.4 Plt Count 402 H MPV 10.3 Neut % (Auto) 68.7 Lymph % (Auto) 20.5 [place] % (Auto) 8.0 Eos % (Auto) 1.6 Baso % (Auto) 0.8 Neut # (Auto) 6.24 Lymph # (Auto) 1.9 [place] # (Auto) 0.7 Eos # (Auto) 0.2 Baso # (Auto) 0.1 Nucleated RBC % (auto) 0 Nucleated RBCs # 0.0 Sodium 139 Potassium 4.3 Chloride 102 Carbon Dioxide 27 Anion Gap 14.3 BUN 16 Creatinine 1.3 H GFR Calculation Not Reportable Glucose 98 Calculated Osmolality 289 Calcium 9.7 Total Bilirubin 0.2 AST 12 ALT 7 Alkaline Phosphatase 103 Total Protein 6.4 L Albumin 3.5 Globulin 2.9 Urine Color Straw Urine Appearance Clear Urine pH 8 H Ur Specific [place] 1.010 Urine Protein Neg Urine Glucose (UA) Norm Urine Ketones Negative Urine Blood 2+ H Urine Nitrate Positive H Urine Bilirubin Neg Prot Sulfosalicylic Acd Negative Urine Urobilinogen Norm Ur Leukocyte Esterase Negative Urine RBC 5-10 H Urine WBC 15-25 H Ur Squamous Epith Cells 0-4 H Amorphous Sediment Not Reportable Urine Bacteria 2+ H Blood Type Rho(D) Type Antibody Screen 09/28/20 09/28/20 06:06 06:06 WBC 14.0 H RBC 3.77 L Hgb 10.8 L Hct 34.6 L MCV 91.8 MCH 28.6 MCHC 31.2 RDW 13.2 Plt Count 366 MPV 9.9 Neut % (Auto) 86.2 Lymph % (Auto) 6.1 [place] % (Auto) 6.6 Eos % (Auto) 0.1 Baso % (Auto) 0.6 Neut # (Auto) 12.07 H Lymph # (Auto) 0.9 [place] # (Auto) 0.9 Eos # (Auto) 0.0 Baso # (Auto) 0.1 Nucleated RBC % (auto) 0 Nucleated RBCs # 0.0 Sodium Potassium Chloride Carbon Dioxide Anion Gap BUN Creatinine GFR Calculation Glucose Calculated Osmolality Calcium Total Bilirubin AST ALT Alkaline Phosphatase Total Protein Albumin Globulin Urine Color Urine Appearance Urine pH Ur Specific [place] Urine Protein Urine Glucose (UA) Urine Ketones Urine Blood Urine Nitrate Urine Bilirubin Prot Sulfosalicylic Acd Urine Urobilinogen Ur Leukocyte Esterase Urine RBC Urine WBC Ur Squamous Epith Cells Amorphous Sediment Urine Bacteria Blood Type O Positive Rho(D) Type Positive / 4+ Antibody Screen Negative Cardiac Studies: No Data to Display
--- NOTE | 2020-09-28 10:51 | SUR.PREOP ---
unable to obtain accurate medication history from patient. right pedal pulse present.
[2020-09-28] MEDS: sodium chloride 0.9% 1,000 ML 30 ML IV (11:08)
--- NOTE | 2020-09-28 12:18 | XR_ITS ---
WS: [id number] Right hip, C-arm fluoroscopy views, 09/28/2020 Clinical Data: OR PICS Comparison: Pelvis and right hip, 09/27/2020 Findings: A right hip nail has been inserted to reduce the intertrochanteric fracture of the right hip. There i s an intramedullary erna which extends the length of the right femur. XR/XR hip RT 2-3V wo/w pel* [id number] Impression: Right hip nail reducing intertrochanteric fracture right hip.
--- NOTE | 2020-09-28 12:23 | PM.OP ---
Operative Report Date of procedure: September 28, 2020 Pre-op Diagnosis: Right intertrochanteric hip fracture Post-op diagnosis: same Post-op Findings: Same Procedure Done: Excision right hip with intramedullary device Implants: Teodoro Gamma nail [id number], 85 mm standard lag screw Pathology: none sent Surgeon: Wili Hill Anesthesia: General Estimated blood loss (mL): 50 Complications: None Findings: The patient had a nondisplaced right intertrochanteric hip fracture Condition: stable Disposition: PACU Procedure: The patient was taken to the operating room. They were given 1 g of Ancef. They were positioned on the fracture table with the right lower extremity in gentle traction. A timeout was performed. A 2 cm long incision was made proximal to the greater trochanter scalpel blade. Dissection was carried down to tip the greater trochanter. A guidepin was passed manually from the tip of the trochanter down the shaft. The proximal reamer was utilized to open up the proximal canal. An 11 mm by 320 mm [place] gamma nail was passed down the canal without difficulty. Under visualization of fluoroscopy a guidepin was driven up into the head and neck at 125? angle. It was measured at 85 mm in length and a lag screw similar length was then placed and locked into place with the proximal locking screw. [The static guides were then used to pass the distal locking screw.] Intraoperative imaging was obtained verifying satisfactory position of the hardware and reduction of the fracture. Deep tissues were closed with 0 Vicryl as were subcutaneous tissues. The skin was closed with skin pooja. Sterile dressings were applied. The patient was extubated and taken to recovery room in stable condition.
--- NOTE | 2020-09-28 12:31 | SUR.PHASEI ---
1227 PATIENT TO PACU FROM OR. RR EVEN AND UNLABORED. DRESSING TO RIGHT HIP, CLEAN, DRY AND INTACT.
[2020-09-28] MEDS: labetalol 5 mg/mL SDV 20mL IVP ×2 (12:41→15:20)
--- NOTE | 2020-09-28 13:09 | SUR.PHASEI ---
1300 WAITING FOR MED SURG BED AT THIS TIME. PATIENT RR EVEN AND UNLABORED. VITALS STABLE. WILL CONTINUE TO MONITOR.
--- NOTE | 2020-09-28 13:26 | SUR.PHASEI ---
1315 PATIENTS UPDATED ON WAIT FOR BED.
[2020-09-28] MEDS: fentaNYL 50 mcg/mL INJ 2mL IVP ×2 (13:31→15:10)
--- NOTE | 2020-09-28 15:24 | ANE.PACU2 ---
Inpatient post-anesthesia follow up: Airway intact: Yes Vital signs: Temperature 99.7 F Pulse Rate [Apical ] 62 Pulse Rate 95 Respiratory Rate 23 Blood Pressure [Le ft Arm] 181/63 Blood Pressure 158/85 Pulse Oximetry 92 Oxygen Delivery Me thod Nasal Cannula Oxygen Flow Rate 3 Fraction of Inspir ed Oxygen Hydration adequate: Yes Nausea and vomiting: No Pain level: 2 Mental status: Baseline
[2020-09-28] MEDS: chlorhexidine gluconate 0.12% Btl 473 mL 30 ML MUCOUS MEM ×2 (17:54→21:10)
[2020-09-28] MEDS: sennosides-docusate Tablet 2 TAB PO (17:55)
--- NOTE | 2020-09-28 19:49 | PC.NURSE ---
Bedside report to [facility] NEIL at this time.
[2020-09-28] MEDS: pramipexole 0.25 mg Tablet 0.125 MG PO (21:13)
[2020-09-28] MEDS: HYDROcodone-acetaminophen 5-325 mg Tablet 1 TAB PO (22:27)
[2020-09-28] MEDS: morphine 4 mg/mL SDV 1 mL 2 MG IVP (23:19)
[2020-09-29] VITALS (10 sets, daily range): BP systolic 96–147; BP diastolic 62–73; PULSE 74–98; RESP 14–18; TEMP 36.6–37.2; O2SAT 94–99
[2020-09-29] MEDS: enoxaparin 40 mg/0.4 mL Syringe SUBCUT (00:25)
[2020-09-29] MEDS: morphine 4 mg/mL SDV 1 mL 2 MG IVP ×2 (02:12→22:13)
[2020-09-29] MEDS: sodium chloride 0.9% 1,000 ML 75 ML IV ×2 (04:09→17:56)
[2020-09-29] MEDS: HYDROcodone-acetaminophen 5-325 mg Tablet 1 TAB PO ×4 (05:32→21:00)
[2020-09-29 05:55] LABS: Basophils # 0.1 10^3/uL (0.0-0.1); Basophils % 0.3 %; Hematocrit 32.1 % (37.0-47.0); Hemoglobin 9.7 g/dL (11.5-15.3); Lymphocytes # 0.8 10^3/uL (0.8-4.8); Mean Corpuscular HGB Conc 30.2 g/dL (30.0-36.0); Mean Corpuscular Hemoglobin 28.2 pg (28.0-34.0); Mean Corpuscular Volume 93.3 fL (81-99); Mean Platelet Volume 10.5 fL (7.4-10.4); Monocytes # 0.7 10^3/uL (0.2-0.9); Monocytes % 3.5 %; Neutrophils # 18.38 10^3/uL (1.8-7.7); Neutrophils % 91.7 %; Nucleated Red Blood Cells % 0 %; Platelet Count 297 10^3/cmm (130-400); Red Blood Count 3.44 10^6/uL (4.1-5.3); Red Cell Distribution Width 13.3 % (12.1-15.1); White Blood Count 20.1 10^3/uL (4.0-10.0)
[2020-09-29 06:12] LABS: Anion Gap 15.3 (5-19); Blood Urea Nitrogen 20 mg/dL (8-23); Carbon Dioxide 25 mmol/L (22-29); Chloride 100 mmol/L (98-107); Glucose 129 mg/dL (65-115); Osmolality Calculated 286 mOsm/kg (285-295); Potassium 4.3 mmol/L (3.5-5.1); Sodium 136 mmol/L (136-145)
--- NOTE | 2020-09-29 07:37 | PC.NURSE ---
Patient gave verbal permission to talk to her daughter Mónica at this time. [phone].Mónica updated at this time.
[2020-09-29] MEDS: sennosides-docusate Tablet 2 TAB PO ×2 (09:30→17:56)
--- NOTE | 2020-09-29 19:22 | PC.NURSE ---
Bedside report to Nely SCOTT at this time.
[2020-09-29] MEDS: pramipexole 0.25 mg Tablet 0.125 MG PO (21:01)
[2020-09-29] MEDS: chlorhexidine gluconate 0.12% Btl 473 mL 30 ML MUCOUS MEM (21:03)
[2020-09-30] VITALS (8 sets, daily range): BP systolic 129–195; BP diastolic 60–77; PULSE 69–100; RESP 16–24; TEMP 36.4–37; O2SAT 95–100
[2020-09-30] MEDS: enoxaparin 30 mg/0.3 mL Syringe SUBCUT (00:08)
[2020-09-30] MEDS: morphine 4 mg/mL SDV 1 mL 2 MG IVP ×2 (04:26→06:46)
[2020-09-30] MEDS: chlorhexidine gluconate 0.12% Btl 473 mL 30 ML MUCOUS MEM ×4 (08:48→20:23)
[2020-09-30] MEDS: sennosides-docusate Tablet 2 TAB PO ×2 (08:49→18:23)
[2020-09-30] MEDS: mupirocin oint 22 gm 1 APPLIC NASAL ×2 (08:49→18:23)
[2020-09-30] MEDS: sodium chloride 0.9% 1,000 ML 75 ML IV ×2 (08:50→20:23)
[2020-09-30] MEDS: HYDROcodone-acetaminophen 5-325 mg Tablet 1 TAB PO (16:57)
--- NOTE | 2020-09-30 17:05 | P.PN_ITS ---
Subjective Subjective: Interval history: Patient awake and alert. Wants to go home. Vitals/I&O/Wt Last Vital Signs Temp 97.9 F 09/30/20 15:58 Pulse 82 09/30/20 15:58 Resp 16 09/30/20 15:58 BP 154/70 09/30/20 15:58 Pulse Ox 100 09/30/20 15:58 09/30/20 09/30/20 09/30/20 06:59 14:59 22:59 Intake Total 1000 / 1000 Balance 1000 / 1000 Physical Exam Narrative: EXAM NARRATIVE: Right hip dressing clean and dry. Minimal swelling right thigh. Urinary Catheter Management^: [place]: Cath Placed During This Visit: yes, but has since been removed by the nurse Reason for Continuing Indwelling Catheter: Decision to DC Catheter Urinary Catheter Date of Insertion: 09/28/20 Urinary Catheter Time of Insertion: 03:20 Date Urinary Catheter Removed: 09/29/20 Time Urinary Catheter Discontinued: 06:00 Data : 09/29/20 05:22 09/29/20 05:22 Micro: Microbiology 09/28/20 06:02 Urine Culture - Final Urine,Clean Catch Escherichia coli A&P Assessment and plan (1) Intertrochanteric fracture of right femur: Status: Acute Qualifiers: Encounter type: initial encounter Fracture type: closed Fracture alignment: displaced Qualified Code(s): S72.141A - Displaced intertrochanteric fracture of right femur, initial encounter for closed fracture (2) Postoperative state: Continue to mobilize with therapy. Patient has some help at home but rehabbed at this point has been slow. Status: Acute Attestations Medical Necessity Statement*: As per medicine Coding Level of Care Code Acute Boiler Assistant Operator for [facility] Diagnoses Intertrochanteric fracture of right femur S72.141A Encounter type: initial encounter Fracture type: closed Fracture alignment: displaced Postoperative state Z98.890
--- NOTE | 2020-09-30 17:41 | PM.PN ---
Subjective Subjective: Interval history: No new clinical events post op, pain controlled. No fever, chills, nausea or vomiting. Medications: Reviewed: Yes Vitals/I&O/Wt Last Vital Signs Temp 97.9 F 09/30/20 15:58 Pulse 82 09/30/20 15:58 Resp 16 09/30/20 15:58 BP 154/70 09/30/20 15:58 Pulse Ox 100 09/30/20 15:58 09/30/20 09/30/20 09/30/20 06:59 14:59 22:59 Intake Total 1000 / 1000 Balance 1000 / 1000 Physical Exam Narrative: EXAM NARRATIVE: General : Sleeping comfortably , NAD HEENT: Grossly unremarkable, 02 at 2L Chest : Non-labored respiration CVS: NSR ABD: Non-distended Ext; no edema Urinary Catheter Management^: [place]: Cath Placed During This Visit: yes, but has since been removed by the nurse Reason for Continuing Indwelling Catheter: Decision to DC Catheter Urinary Catheter Date of Insertion: 09/28/20 Urinary Catheter Time of Insertion: 03:20 Date Urinary Catheter Removed: 09/29/20 Time Urinary Catheter Discontinued: 06:00 Data : 09/29/20 05:22 09/29/20 05:22 Micro: Microbiology 09/28/20 06:02 Urine Culture - Final Urine,Clean Catch Escherichia coli A&P Assessment and plan (1) Fall at home: Fall precautions Mechanical in nature PT/OT on consult Status: Acute Qualifiers: Encounter type: initial encounter Qualified Code(s): W19.XXXA - Unspecified fall, initial encounter; Y92.009 - Unspecified place in unspecified non-institutional (private) residence as the place of occurrence of the external cause (2) Intertrochanteric fracture of right femur: S/p ORIF Post op management per ortho Monitor h/h Pain control Status: Acute Qualifiers: Encounter type: initial encounter Fracture type: closed Fracture alignment: displaced Qualified Code(s): S72.141A - Displaced intertrochanteric fracture of right femur, initial encounter for closed fracture (3) Hypertension: Improving Only on Lasix prior to arrival Status: Chronic Qualifiers: Hypertension type: essential hypertension Qualified Code(s): I10 - Essential (primary) hypertension (4) PAD (peripheral artery disease): With a history of femoropopliteal bypass Aspirin 81 mg PO daily Status: Chronic (5) Nicotine dependence, cigarettes, in remission: Recently quit Status: Chronic (6) Acute kidney failure: Creatinine increase to 1.4 BMP in am Hold lasix Avoid NSAIDS Status: Acute (7) Urinary tract infection: Increasing leukocytosis, UA positive for E-coli Rocephin 1g IV q24hr Allergy to keflex however patient tolerated preop ancef Will monitor for allergic reaction. Status: Acute (8) Postoperative state: Status: Acute Additional A&P Information Disposition: SNF likely in 1-2days Attestations Medical Necessity Statement*: Will require further hospitalization for post op management. Time Spent in Patient Care: Greater than 35 minutes Coding Level of Care Code Acute Glue Maker Bone for [facility] Diagnoses Fall at home W19.XXXA; Y92.009 Encounter type: initial encounter Intertrochanteric fracture of right femur S72.141A Encounter type: initial encounter Fracture type: closed Fracture alignment: displaced Hypertension I10 Hypertension type: essential hypertension PAD (peripheral artery disease) I73.9 Nicotine dependence, cigarettes, in remission F17.211 Acute kidney failure N17.9 Urinary tract infection N39.0 Postoperative state Z98.890
[2020-09-30] MEDS: cefTRIAXone 1,000 MG in sodium chloride 0.9% (plus) 50 ML 100 MG IV (18:23)
[2020-09-30] MEDS: pramipexole 0.25 mg Tablet 0.125 MG PO (20:23)
[2020-10-01] VITALS (9 sets, daily range): BP systolic 140–176; BP diastolic 62–100; PULSE 81–108; RESP 14–24; TEMP 36.6–37.3; O2SAT 88–97
[2020-10-01] MEDS: enoxaparin 30 mg/0.3 mL Syringe SUBCUT (00:21)
[2020-10-01] MEDS: sennosides-docusate Tablet 2 TAB PO ×2 (08:14→17:59)
[2020-10-01] MEDS: HYDROcodone-acetaminophen 5-325 mg Tablet 1 TAB PO ×2 (08:19→22:28)
--- NOTE | 2020-10-01 09:12 | DCPLANNER ---
Pg 2 of IM updated and reviewed with pt. No questions, she wants to go home as soon as she is d/c'd.
[2020-10-01] MEDS: chlorhexidine gluconate 0.12% Btl 473 mL 30 ML MUCOUS MEM ×3 (10:15→20:54)
[2020-10-01] MEDS: sodium chloride 0.9% 1,000 ML 75 ML IV (10:16)
--- NOTE | 2020-10-01 14:47 | PC.NUTR ---
Nutrition assessment completed BMI < 23 in age > 65 years. Average po intakes 31%. Recommend Ensure Plus with meals. Recommend to provide meal preferences as available and encourage po intakes of meals/supplements. See RD assessment for further details.
[2020-10-01 14:57] LABS: Basophils % 0.3 %; Eosinophils # 0.1 10^3/uL (0.0-0.8); Hematocrit 25.9 % (37.0-47.0); Hemoglobin 8.1 g/dL (11.5-15.3); Lymphocytes % 8.2 %; Mean Corpuscular HGB Conc 31.3 g/dL (30.0-36.0); Mean Corpuscular Hemoglobin 29.1 pg (28.0-34.0); Mean Corpuscular Volume 93.2 fL (81-99); Mean Platelet Volume 10.1 fL (7.4-10.4); Monocytes # 0.9 10^3/uL (0.2-0.9); Monocytes % 7.5 %; Neutrophils # 10.22 10^3/uL (1.8-7.7); Neutrophils % 82.5 %; Nucleated Red Blood Cells % 0 %; Platelet Count 235 10^3/cmm (130-400); Red Blood Count 2.78 10^6/uL (4.1-5.3); Red Cell Distribution Width 13.8 % (12.1-15.1); White Blood Count 12.4 10^3/uL (4.0-10.0)
[2020-10-01 15:13] LABS: Alanine Aminotransferase < 5 U/L (0-33); Albumin Level 2.7 g/dL (3.5-5.2); Alkaline Phosphatase 81 IU/L (35-105); Anion Gap 10.9 (5-19); Aspartate Amino Transferase 11 U/L (0-32); Blood Urea Nitrogen 19 mg/dL (8-23); Calcium 8.7 mg/dL (8.5-10.5); Carbon Dioxide 24 mmol/L (22-29); Chloride 109 mmol/L (98-107); Globulin 2.5 g/dL (1.3-4.6); Glucose 122 mg/dL (65-115); Osmolality Calculated 294 mOsm/kg (285-295); Potassium 3.9 mmol/L (3.5-5.1); Sodium 140 mmol/L (136-145); Total Bilirubin 0.2 mg/dL (0.15-1.2); Total Protein 5.2 g/dL (6.6-8.7)
--- NOTE | 2020-10-01 17:20 | PM.PN ---
Subjective Subjective: Interval history: Hospital course appreciated. No acute events overnight. Working well with physical therapy. Denies any nausea vomiting, headache. States pain is well controlled. Medications: Reviewed: Yes Vitals/I&O/Wt Last Vital Signs Temp 99.2 F 10/01/20 15:09 Pulse 88 10/01/20 15:09 Resp 24 H 10/01/20 15:09 BP 154/69 10/01/20 15:09 Pulse Ox 96 10/01/20 15:09 10/01/20 10/01/20 10/01/20 06:59 14:59 22:59 Intake Total 2320 / 2320 Output Total 300 / 300 Balance 2019 Physical Exam Narrative: EXAM NARRATIVE: General : Sleeping comfortably , NAD HEENT: Grossly unremarkable, 02 at 2L Chest : Non-labored respiration CVS: NSR ABD: Non-distended Ext; no edema Urinary Catheter Management^: [place]: Cath Placed During This Visit: yes, but has since been removed by the nurse Reason for Continuing Indwelling Catheter: Decision to DC Catheter Urinary Catheter Date of Insertion: 09/28/20 Urinary Catheter Time of Insertion: 03:20 Date Urinary Catheter Removed: 09/29/20 Time Urinary Catheter Discontinued: 06:00 Data : 10/01/20 14:40 10/01/20 14:40 A&P Assessment and plan (1) Urinary tract infection: UA positive for E. coli. Pansensitive. Continue with Rocephin for now. Day 2 today. On discharge possibly can switch over to levofloxacin to finish a 5-day course. Status: Acute (2) Fall at home: Fall precautions Mechanical in nature PT/OT on consult Status: Acute Qualifiers: Encounter type: initial encounter Qualified Code(s): W19.XXXA - Unspecified fall, initial encounter; Y92.009 - Unspecified place in unspecified non-institutional (private) residence as the place of occurrence of the external cause (3) Intertrochanteric fracture of right femur: S/p ORIF Post op management per ortho Monitor h/h Pain control Status: Acute Qualifiers: Encounter type: initial encounter Fracture type: closed Fracture alignment: displaced Qualified Code(s): S72.141A - Displaced intertrochanteric fracture of right femur, initial encounter for closed fracture (4) Acute kidney failure: Hold Lasix. Avoid NSAIDs. Creatinine back to baseline. Stop IV fluids. Status: Acute (5) Postoperative state: Status: Acute (6) Nicotine dependence, cigarettes, in remission: Recently quit Status: Chronic (7) PAD (peripheral artery disease): With a history of femoropopliteal bypass Aspirin 81 mg PO daily Status: Chronic (8) Hypertension: Improving Only on Lasix prior to arrival Status: Chronic Qualifiers: Hypertension type: essential hypertension Qualified Code(s): I10 - Essential (primary) hypertension Additional A&P Information Disposition: SNF likely in 1-2days Full code. Famotidine for PUD prophylaxis. Regular diet. Lovenox for DVT prophylaxis. Attestations Medical Necessity Statement*: Requires further hospitalization for management of postoperative care for ORIF, UTI while safe discharge home discharge. Time Spent in Patient Care: Greater than 35 minutes (>than 50% of time spent in counselling and/or direct pt care on unit). Coding Level of Care Code Acute Associate Field Service Engineer for [facility] Fwd Diagnoses Urinary tract infection N39.0 Fall at home W19.XXXA; Y92.009 Encounter type: initial encounter Intertrochanteric fracture of right femur S72.141A Encounter type: initial encounter Fracture type: closed Fracture alignment: displaced Acute kidney failure N17.9 Postoperative state Z98.890 Nicotine dependence, cigarettes, in remission F17.211 PAD (peripheral artery disease) I73.9 Hypertension I10 Hypertension type: essential hypertension
[2020-10-01] MEDS: cefTRIAXone 1,000 MG in sodium chloride 0.9% (plus) 50 ML 100 MG IV (17:59)
[2020-10-01] MEDS: famotidine 20 mg Tablet PO (17:59)
[2020-10-01] MEDS: mupirocin oint 22 gm 1 APPLIC NASAL (18:06)
[2020-10-01] MEDS: oxybutynin 5 mg Tablet PO (20:54)
[2020-10-01] MEDS: pramipexole 0.25 mg Tablet 0.125 MG PO (20:54)
[2020-10-01] MEDS: morphine 4 mg/mL SDV 1 mL 2 MG IVP (20:55)
[2020-10-02] MEDS: enoxaparin 30 mg/0.3 mL Syringe SUBCUT (00:59)
[2020-10-02 01:06] VITALS: RESP 16
[2020-10-02] MEDS: morphine 4 mg/mL SDV 1 mL 2 MG IVP (01:06)
[2020-10-02 04:00] VITALS: BP 129/54; PULSE 84; RESP 14; TEMP 36.5; O2SAT 88
[2020-10-02] MEDS: HYDROcodone-acetaminophen 5-325 mg Tablet 1 TAB PO ×3 (04:49→17:46)
[2020-10-02] MEDS: aspirin 81 mg EC Tablet PO (06:07)
[2020-10-02 07:05] LABS: Basophils # 0.1 10^3/uL (0.0-0.1); Basophils % 0.5 %; Eosinophils # 0.2 10^3/uL (0.0-0.8); Hematocrit 24.3 % (37.0-47.0); Hemoglobin 7.5 g/dL (11.5-15.3); Lymphocytes # 1.4 10^3/uL (0.8-4.8); Lymphocytes % 14.7 %; Mean Corpuscular HGB Conc 30.9 g/dL (30.0-36.0); Mean Corpuscular Hemoglobin 28.2 pg (28.0-34.0); Mean Corpuscular Volume 91.4 fL (81-99); Mean Platelet Volume 10.7 fL (7.4-10.4); Monocytes # 0.9 10^3/uL (0.2-0.9); Neutrophils # 7.06 10^3/uL (1.8-7.7); Neutrophils % 73.5 %; Nucleated Red Blood Cells % 0 %; Platelet Count 249 10^3/cmm (130-400); Red Blood Count 2.66 10^6/uL (4.1-5.3); Red Cell Distribution Width 13.6 % (12.1-15.1); White Blood Count 9.6 10^3/uL (4.0-10.0)
[2020-10-02 07:19] LABS: Alanine Aminotransferase < 5 U/L (0-33); Albumin Level 2.5 g/dL (3.5-5.2); Alkaline Phosphatase 67 IU/L (35-105); Anion Gap 11.8 (5-19); Aspartate Amino Transferase 12 U/L (0-32); Blood Urea Nitrogen 15 mg/dL (8-23); Calcium 8.6 mg/dL (8.5-10.5); Carbon Dioxide 24 mmol/L (22-29); Chloride 107 mmol/L (98-107); Globulin 2.5 g/dL (1.3-4.6); Glucose 97 mg/dL (65-115); Osmolality Calculated 289 mOsm/kg (285-295); Potassium 3.8 mmol/L (3.5-5.1); Sodium 139 mmol/L (136-145); Total Bilirubin 0.3 mg/dL (0.15-1.2)
[2020-10-02 07:44] VITALS: BP 121/65; PULSE 74; RESP 16; TEMP 36.4; O2SAT 95
--- NOTE | 2020-10-02 07:49 | P.PN_ITS ---
Subjective Subjective: Interval history: Patient slow with physical pain okay Vitals/I&O/Wt Last Vital Signs Temp 97.6 F 10/02/20 07:44 Pulse 74 10/02/20 07:44 Resp 16 10/02/20 07:44 BP 121/65 10/02/20 07:44 Pulse Ox 95 10/02/20 07:44 10/01/20 10/02/20 10/02/20 22:59 06:59 14:59 Intake Total 898 / 3218 150 / 3368 Balance 898 / 2918 150 / 3068 Physical Exam Narrative: EXAM NARRATIVE: Right hip incisions clean right hip incisions clean and dry, minimal swelling right thigh Urinary Catheter Management^: [place]: Cath Placed During This Visit: yes, but has since been removed by the nurse Reason for Continuing Indwelling Catheter: Decision to DC Catheter Urinary Catheter Date of Insertion: 09/28/20 Urinary Catheter Time of Insertion: 03:20 Date Urinary Catheter Removed: 09/29/20 Time Urinary Catheter Discontinued: 06:00 Data : 10/02/20 06:20 10/02/20 06:20 A&P Assessment and plan (1) Intertrochanteric fracture of right femur: Status: Acute Qualifiers: Encounter type: initial encounter Fracture type: closed Fracture alignment: displaced Qualified Code(s): S72.141A - Displaced intertrochanteric fracture of right femur, initial encounter for closed fracture (2) Postoperative state: Slow progress with physical agree with retirement transfer. Status: Acute Attestations Medical Necessity Statement*: Transfer to retirement transfer to retirement when bed available. Coding Level of Care Code Acute Lbd Teacher for [facility] Diagnoses Intertrochanteric fracture of right femur S72.141A Encounter type: initial encounter Fracture type: closed Fracture alignment: displaced Postoperative state Z98.890
[2020-10-02] MEDS: famotidine 20 mg Tablet PO ×2 (08:57→17:47)
[2020-10-02] MEDS: sennosides-docusate Tablet 2 TAB PO ×2 (08:57→17:47)
[2020-10-02] MEDS: mupirocin oint 22 gm 1 APPLIC NASAL ×2 (08:58→17:48)
[2020-10-02] MEDS: chlorhexidine gluconate 0.12% Btl 473 mL 30 ML MUCOUS MEM ×2 (08:58→20:45)
[2020-10-02] MEDS: duloxetine 20 mg Capsule PO (09:03)
--- NOTE | 2020-10-02 10:45 | PM.PN ---
Subjective Subjective: Interval history: No acute events overnight. Working well with physical therapy. Denies any nausea vomiting, headache. Bothered by pain today morning after PT Medications: Reviewed: Yes Vitals/I&O/Wt Last Vital Signs Temp 97.6 F 10/02/20 07:44 Pulse 74 10/02/20 07:44 Resp 16 10/02/20 07:44 BP 121/65 10/02/20 07:44 Pulse Ox 95 10/02/20 07:44 10/01/20 10/02/20 10/02/20 22:59 06:59 14:59 Intake Total 898 / 3218 150 / 3368 Balance 898 / 2918 150 / 3068 Physical Exam Narrative: EXAM NARRATIVE: General : Sleeping comfortably , NAD HEENT: Grossly unremarkable, 02 at 2L Chest : Non-labored respiration CVS: NSR ABD: Non-distended Ext; no edema Urinary Catheter Management^: [place]: Cath Placed During This Visit: yes, but has since been removed by the nurse Reason for Continuing Indwelling Catheter: Decision to DC Catheter Urinary Catheter Date of Insertion: 09/28/20 Urinary Catheter Time of Insertion: 03:20 Date Urinary Catheter Removed: 09/29/20 Time Urinary Catheter Discontinued: 06:00 Data : 10/02/20 06:20 10/02/20 06:20 A&P Assessment and plan (1) Urinary tract infection: UA positive for E. coli. Pansensitive. Continue with Rocephin for now. Day 3/5. On d/c can transition to oral levoflox 500 mg to finish a 5 day course. Status: Acute (2) Fall at home: Fall precautions Mechanical in nature PT/OT on consult Status: Acute Qualifiers: Encounter type: initial encounter Qualified Code(s): W19.XXXA - Unspecified fall, initial encounter; Y92.009 - Unspecified place in unspecified non-institutional (private) residence as the place of occurrence of the external cause (3) Intertrochanteric fracture of right femur: S/p ORIF Post op management per ortho Monitor h/h Pain control Status: Acute Qualifiers: Encounter type: initial encounter Fracture alignment: displaced Fracture type: closed Qualified Code(s): S72.141A - Displaced intertrochanteric fracture of right femur, initial encounter for closed fracture (4) Acute kidney failure: Resolved. Medical reconstruction done for nephrotoxic drugs. Status: Acute (5) Postoperative state: Status: Acute (6) Nicotine dependence, cigarettes, in remission: Recently quit Status: Chronic (7) PAD (peripheral artery disease): With a history of femoropopliteal bypass Aspirin 81 mg PO daily Status: Chronic (8) Hypertension: Improving Only on Lasix prior to arrival Status: Chronic Qualifiers: Hypertension type: essential hypertension Qualified Code(s): I10 - Essential (primary) hypertension Additional A&P Information Anemia: Hemoglobin down to 7.5 today. Iron studies suggestive of iron deficiency anemia. Start on oral supplementation. We will continue to monitor hemoglobin daily. Transfuse if hemoglobin less than 7. Full code. Famotidine for PUD prophylaxis. Regular diet. Lovenox for DVT prophylaxis. Discharge planning: Awaiting prior Auth to SNF for further rehabitation. Attestations Medical Necessity Statement*: Requires further hospitalization for postoperative care for ORIF, physical therapy as patient is at high risk of recurrent falls from recent surgery while safe discharge planning is sought. Time Spent in Patient Care: Greater than 35 minutes (>than 50% of time spent in counselling and/or direct pt care on unit). Coding Level of Care Code Acute Search Coordinator for [facility] Fwd Diagnoses Urinary tract infection N39.0 Fall at home W19.XXXA; Y92.009 Encounter type: initial encounter Intertrochanteric fracture of right femur S72.141A Encounter type: initial encounter Fracture alignment: displaced Fracture type: closed Acute kidney failure N17.9 Postoperative state Z98.890 Nicotine dependence, cigarettes, in remission F17.211 PAD (peripheral artery disease) I73.9 Hypertension I10 Hypertension type: essential hypertension
[2020-10-02 11:36] VITALS: BP 132/64; PULSE 71; RESP 16; TEMP 36.6; O2SAT 90
[2020-10-02 16:00] VITALS: BP 109/55; PULSE 78; RESP 16; TEMP 36.7; O2SAT 90
[2020-10-02] MEDS: cefTRIAXone 1,000 MG in sodium chloride 0.9% (plus) 100 ML 200 MG IV (18:28)
[2020-10-02 20:00] VITALS: BP 139/83; PULSE 80; RESP 17; TEMP 37.2; O2SAT 92
[2020-10-02] MEDS: pramipexole 0.25 mg Tablet 0.125 MG PO (20:43)
[2020-10-02] MEDS: oxybutynin 5 mg Tablet PO (20:43)
[2020-10-03] VITALS: BP 154/71; PULSE 96; RESP 16; TEMP 36.8; O2SAT 97
[2020-10-03] MEDS: enoxaparin 40 mg/0.4 mL Syringe SUBCUT (01:07)
[2020-10-03 04:00] VITALS: BP 170/55; PULSE 88; RESP 18; TEMP 36.4; O2SAT 91
[2020-10-03] MEDS: aspirin 81 mg EC Tablet PO (06:03)
[2020-10-03 08:00] VITALS: BP 132/69; PULSE 83; RESP 12; TEMP 36.8; O2SAT 88
[2020-10-03] MEDS: HYDROcodone-acetaminophen 5-325 mg Tablet 1 TAB PO ×2 (08:14→19:06)
[2020-10-03] MEDS: mupirocin oint 22 gm 1 APPLIC NASAL (08:14)
[2020-10-03] MEDS: famotidine 20 mg Tablet PO ×2 (08:14→17:19)
[2020-10-03] MEDS: chlorhexidine gluconate 0.12% Btl 473 mL 30 ML MUCOUS MEM ×2 (08:15→17:21)
[2020-10-03] MEDS: duloxetine 20 mg Capsule PO (08:16)
[2020-10-03] MEDS: amlodipine 10 mg Tablet PO (09:58)
[2020-10-03 11:11] VITALS: BP 130/69; PULSE 93; RESP 15; TEMP 37; O2SAT 94
--- NOTE | 2020-10-03 11:46 | PC.SOCIAL ---
IMM update IMM updated with patient. Verbalized an understanding, Pg. 2 copy provided. No questions voiced. Initialed, dated, and timed and placed in chart.
--- NOTE | 2020-10-03 12:03 | PM.DCS ---
Discharge Providers Date of Admission: 09/28/20 10:06 Date of Discharge: October 03, 2020 Attending Provider at Admission: Wili Hill MD Attending Provider at Discharge: Gaston Ram MD Consults: Orthopedics: Dr. Thompson Primary Care Provider: Crystal Mckee Diagnoses at Discharge Discharge Diagnosis (1) Urinary tract infection: Status: Acute (2) Fall at home: Status: Acute Qualifiers: Encounter type: initial encounter Qualified Code(s): W19.XXXA - Unspecified fall, initial encounter; Y92.009 - Unspecified place in unspecified non-institutional (private) residence as the place of occurrence of the external cause (3) Intertrochanteric fracture of right femur: Status: Acute Qualifiers: Encounter type: initial encounter Fracture type: closed Fracture alignment: displaced Qualified Code(s): S72.141A - Displaced intertrochanteric fracture of right femur, initial encounter for closed fracture (4) Acute kidney failure: Status: Acute (5) Postoperative state: Status: Acute (6) Nicotine dependence, cigarettes, in remission: Status: Chronic (7) PAD (peripheral artery disease): Status: Chronic (8) Hypertension: Status: Chronic Qualifiers: Hypertension type: essential hypertension Qualified Code(s): I10 - Essential (primary) hypertension Reason for Visit Reason for Visit: FALL/ HIP PAIN/ ELBOW PAIN Hospital Course Hospital Course Gabriella Hidalgo is a 75 year old female who presented to the emergency room after a fall at home. She is not entirely sure what happened but she was walking into her house and she fell landing on her right side. She hit her arm and her hip and her foot. The hip was the primary point contact. Her was at home at the time. Ambulance was called and brought her in. They wrapped her upper extremity which had some bleeding abrasions/skin tears in gauze. In the emergency room she was found to have minimally displaced and comminuted intertrochanteric fracture of the right femur. She required a couple of doses of pain medications both in route and in the emergency room to get comfortable. She had multiple bruises to both lower extremities and upper extremities. After pain medication received in the emergency room is not able to really discern for me if she has had multiple falls lately or if this was the only 1. She denied any loss of consciousness, chest pain, palpitations or other preceding symptoms. She does not necessarily remember tripping over anything or her legs giving out. ER notes indicate that she missed stepped . Her pressures were elevated in the emergency room but did respond some to pain medications. She has no personal history of coronary artery disease, chronic kidney disease, bleeding problems. She does have a history of peripheral artery disease and underwent previous femoropopliteal bypass. She has hypertension that she does not chronically take medications for by her report. Patient under the hospital for further management of intertrochanteric fracture of right femur. She underwent ORIF on September 28. Patient tolerated the procedure well. Postprocedure patient has been working well with physical therapy. UA on admission was concerning for UTI. Urine culture eventually grew pansensitive E. coli. Patient is to take 1 more dose of Levaquin tomorrow to finish the dose of antibiotics for UTI. On admission patient was found to be in CHIP which was treated with IV hydration and she responded to treatment well. During hospitalization she was found to have elevated blood pressure which is treated with amlodipine. Amlodipine has been added to her home medication list. Patient is to follow-up with her primary care provider within the next 1 month with a blood pressure diary for further adjustment of antihypertensives. She is being discharged in stable condition advised to follow-up with a primary care provider within next 1 week and with orthopedics since that appointment. Physical Exam Narrative: EXAM NARRATIVE: General : Sleeping comfortably , NAD HEENT: Grossly unremarkable, Chest : Non-labored respiration CVS: NSR ABD: Non-distended Ext; no edema Urinary Catheter Management^: Bolton: Cath Placed During This Visit: yes, but has since been removed by the nurse Reason for Continuing Indwelling Catheter: Decision to DC Catheter Urinary Catheter Date of Insertion: 09/28/20 Urinary Catheter Time of Insertion: 03:20 Date Urinary Catheter Removed: 09/29/20 Time Urinary Catheter Discontinued: 06:00 Discharge Data Data Completed and Pending: Completed Studies During Hospitalization Category Date Time Status CT hip RT wo con* [id number] Urgent Cat Scan 09/27/20 20:15 Completed XR chest 1V celina ble [id number] Stat Exams 09/27/20 23:12 Completed XR hip RT 2-3V wo /w pel* [id number] Rout ine Exams 09/28/20 12:18 Completed XR hip RT 2-3V wo /w pel* [id number] Stat Exams 09/27/20 19:11 Completed XR knee RT 3V* [id number] Stat Exams 09/27/20 19:13 Completed XR tibia fibula L T 2V [id number] Stat Exams 09/27/20 19:11 Completed Pending at discharge Category Date Time Status Complete Blood Co unt w/Auto AM LABS Lab 10/04/20 04:00 Ordered Comprehensive Met abolic Panel AM LA BS Lab 10/04/20 04:00 Ordered Addt'l Data from Hospital Stay: Laboratory Results WBC 9.6 10^3/uL (4.0- 10.0) 10/02/20 06:20 RBC 2.66 10^6/uL (4.1 -5.3) L 10/02/20 06:20 Hgb 7.5 g/dL (11.5-15 .3) L 10/02/20 06:20 Hct 24.3 % (37.0-47.0 ) L 10/02/20 06:20 MCV 91.4 fL (81-99) 10/02/20 06:20 MCH 28.2 pg (28.0-34. 0) 10/02/20 06:20 MCHC 30.9 g/dL (30.0-3 6.0) 10/02/20 06:20 RDW 13.6 % (12.1-15.1 ) 10/02/20 06:20 Plt Count 249 10^3/cmm (130 -400) 10/02/20 06:20 MPV 10.7 fL (7.4-10.4 ) H 10/02/20 06:20 Neut % (Auto) 73.5 % 10/02/20 06:20 Lymph % (Auto) 14.7 % 10/02/20 06:20 [place] % (Auto) 9.0 % 10/02/20 06:20 Eos % (Auto) 2.0 % 10/02/20 06:20 Baso % (Auto) 0.5 % 10/02/20 06:20 Neut # (Auto) 7.06 10^3/uL (1.8 -7.7) 10/02/20 06:20 Lymph # (Auto) 1.4 10^3/uL (0.8- 4.8) 10/02/20 06:20 [place] # (Auto) 0.9 10^3/uL (0.2- 0.9) 10/02/20 06:20 Eos # (Auto) 0.2 10^3/uL (0.0- 0.8) 10/02/20 06:20 Baso # (Auto) 0.1 10^3/uL (0.0- 0.1) 10/02/20 06:20 Nucleated RBC % (a uto) 0 % 10/02/20 06:20 Nucleated RBCs # 0.0 /100WBC 10/02/20 06:20 Sodium 139 mmol/L (136-1 45) 10/02/20 06:20 Potassium 3.8 mmol/L (3.5-5 .1) 10/02/20 06:20 Chloride 107 mmol/L (98-10 7) 10/02/20 06:20 Carbon Dioxide 24 mmol/L (22-29) 10/02/20 06:20 Anion Gap 11.8 (5-19) 10/02/20 06:20 BUN 15 mg/dL (8-23) 10/02/20 06:20 Creatinine 0.8 mg/dL (0.5-0. 9) 10/02/20 06:20 GFR Calculation Not Reportable 10/02/20 06:20 Glucose 97 mg/dL (65-115) 10/02/20 06:20 Calculated Osmolal ity 289 mOsm/kg (285- 295) 10/02/20 06:20 Calcium 8.6 mg/dL (8.5-10 .5) 10/02/20 06:20 Total Bilirubin 0.3 mg/dL (0.15-1 .2) 10/02/20 06:20 AST 12 U/L (0-32) 10/02/20 06:20 ALT < 5 U/L (0-33) 10/02/20 06:20 Alkaline Phosphata se 67 IU/L (35-105) 10/02/20 06:20 Total Protein 5.0 g/dL (6.6-8.7 ) L 10/02/20 06:20 Albumin 2.5 g/dL (3.5-5.2 ) L 10/02/20 06:20 Globulin 2.5 g/dL (1.3-4.6 ) 10/02/20 06:20 Urine Color Straw (Yellow) 09/28/20 06:02 Urine Appearance Clear (CLEAR) 09/28/20 06:02 Urine pH 8 (5-7) H 09/28/20 06:02 Ur Specific Gravit y 1.010 (1.005-1.0 30) 09/28/20 06:02 Urine Protein Neg (Negative) 09/28/20 06:02 Urine Glucose (UA) Norm (Normal) 09/28/20 06:02 Urine Ketones Negative (Negati ve) 09/28/20 06:02 Urine Blood 2+ (Negative) H 09/28/20 06:02 Urine Nitrate Positive (Negati ve) H 09/28/20 06:02 Urine Bilirubin Neg (Negative) 09/28/20 06:02 Prot Sulfosalicyli c Acd Negative (Negati ve) 09/28/20 06:02 Urine Urobilinogen Norm mg/dL (Negat nahid) 09/28/20 06:02 Ur Leukocyte Pushpa ase Negative (Negati ve) 09/28/20 06:02 Urine RBC 5-10 /hpf (0-2) H 09/28/20 06:02 Urine WBC 15-25 /hpf (0-5) H 09/28/20 06:02 Ur Squamous Epith Cells 0-4 /hpf (0-5) H 09/28/20 06:02 Amorphous Sediment Not Reportable 09/28/20 06:02 Urine Bacteria 2+ /hpf (NONE) H 09/28/20 06:02 Blood Type O Positive 09/28/20 06:06 Rho(D) Type Positive / 4+ 09/28/20 06:06 Antibody Screen Negative 09/28/20 06:06 Impressions Tibia/Fibula X-Ray 09/27/20 19:11 IMPRESSION: No acute radiographic findings. Knee X-Ray 09/27/20 19:13 IMPRESSION: No acute radiographic findings. Hip CT 09/27/20 20:15 IMPRESSION: 1. Mildly comminuted and mildly displaced intertrochanteric fracture of the right femur. 2. Small right hip joint effusion. 3. Mild soft tissue swelling around the proximal right femur. 4. Incidental/nonacute findings are listed in the report. Radiation Dose CTDIVOL = (mGy): DLP = 374.18 (mGy-cm) Chest X-Ray 09/27/20 23:12 IMPRESSION: 1. No acute cardiopulmonary process. 2. No acute fracture. 3. CT scan of the chest with contrast would be recommended if there is continuing clinical concern for thoracic injury. 4. Incidental/nonacute findings are listed in the report. Hip/Pelvis X-Ray 09/28/20 12:18 Impression: Right hip nail reducing intertrochanteric fracture right hip. Microbiology 09/28/20 06:02 Urine,Clean Catch Urine Culture - Final Escherichia coli Vitals: Last Vital Signs Temp 98.6 F 10/03/20 11:11 Pulse 93 10/03/20 11:11 Resp 15 10/03/20 11:11 BP 130/69 10/03/20 11:11 Pulse Ox 94 10/03/20 11:11 Discharge Plan Discharge Patient Disposition: Home Condition: Stable Prescriptions: New amlodipine 10 mg Tablet 10 mg PO DAILY Qty: 30 RF: 0 ferrous fumarate-folic acid 324 mg (106 mg iron)-1 mg tablet 1 tab PO QAM Qty: 60 RF: 0 levofloxacin 500 mg tablet 500 mg PO DAILY Qty: 1 RF: 0 Continued terbinafine HCl [Lamisil AT] 1 % cream 1 applic topical BID PRN (Reason: unknown) RF: 0 terbinafine HCl 250 mg tablet 250 mg PO DAILY RF: 0 mupirocin 2 % ointment 1 applic topical TID PRN (Reason: unknown) RF: 0 pramipexole [Mirapex] 0.125 mg tablet 0.125 mg PO QPM RF: 0 omeprazole 20 mg capsule,delayed release(DR/EC) 20 mg PO BID RF: 0 naproxen 500 mg tablet 500 mg PO BID RF: 0 furosemide 40 mg tablet 40 mg PO DAILY PRN (Reason: Edema) RF: 0 tramadol 50 mg tablet 100 mg PO BID PRN (Reason: Pain) RF: 0 Vitamin B-12 2,500 mcg Tablet, Sublingual 5,000 mcg sublingual DAILY RF: 0 Aspir-81 81 mg Tablet,Delayed Release (Dr/Ec) 81 mg PO QAM RF: 0 oxybutynin chloride 5 mg tablet 5 mg PO BEDTIME RF: 0 duloxetine 20 mg capsule,delayed release(DR/EC) 20 mg PO DAILY RF: 0 Vitamin D3 1 cap PO DAILY RF: 0 Discontinued ibuprofen 200 mg Tablet 400 mg PO PRN RF: 0 Discharge Orders: Discharge Order (Routine); Ordered 10/03/20 Ordered By: Gaston Ram Referrals: Wili Hill MD [Physician] - 1 month Crystal Mckee [Primary Care Provider] - 7-10 days Discharge Diet: Advance as tolerated Discharge Activity: Limit activity as instructed Patient Instructions: Opioid Safety Activity Restrictions/Additional Instructions: Weight-bear as tolerated right lower extremity Okay to shower once incision is free of drainage longterm to nm pooja on 10/12/2020 Please follow with a primary care provider within next 1 week. You are on amlodipine which is a blood pressure medication. Maintain a blood pressure diary at home and follow-up with a primary care provider for further adjustment of antihypertensive. Levaquin will be the antibiotic for 1 more day to finish a course of antibiotics for UTI. Discharge Attestations Time Spent in Discharge Care*: greater than 30 min Quality Metrics Clinical Quality Measures During this hospital stay, did patient experience: None Coding Level of Care Code Acute g [facility] note Diagnoses Urinary tract infection N39.0 Fall at home W19.XXXA; Y92.009 Encounter type: initial encounter Intertrochanteric fracture of right femur S72.141A Encounter type: initial encounter Fracture type: closed Fracture alignment: displaced Acute kidney failure N17.9 Postoperative state Z98.890 Nicotine dependence, cigarettes, in remission F17.211 PAD (peripheral artery disease) I73.9 Hypertension I10 Hypertension type: essential hypertension
[2020-10-03] MEDS: cefTRIAXone 1,000 MG in sodium chloride 0.9% (plus) 100 ML 200 MG IV (14:00)
--- NOTE | 2020-10-03 14:02 | PC.NURSE ---
Dr. Ram gave verbal orders to give iv rocephin 4 hours early at 1400 instead of 1800 due to patient being discharged.
[2020-10-03 16:00] VITALS: BP 129/59; PULSE 84; RESP 16; TEMP 36.4; O2SAT 95
[2020-10-03 19:14] VITALS: BP 129/59; PULSE 84; RESP 16; TEMP 36.4; O2SAT 95
== END 2020-10-03 19:15 | disposition skilled nursing facility (03) | DRG 481 ==
LOC: ER 20:01 → ER IP 09-28 08:47 → ER 09-28 16:18 → OPS 09-28 16:21 → ER 09-28 16:24 → OPS 09-28 16:24 → MEDSURG 09-28 16:27
PROVIDERS: Hospitalist; Admitting Provider Orthopaedic Surgery; Emergency Provider Nurse Practitioner Family; PCP Nurse Practitioner Family; Visit Provider Student in an Organized Health Care Education/Training Program
PROC: 0QS606Z Reposition Right Upper Femur with Intramedullary Internal Fixation Device, Open Approach (ICD-10-PCS; CPT 27245; principal; 2020-09-28 09:40)
DX: S72.141A Displaced intertrochanteric fracture of right femur, initial encounter for closed fracture (principal); N17.9 Acute kidney failure, unspecified; N39.0 Urinary tract infection, site not specified; W01.0XXA Fall on same level from slipping, tripping and stumbling without subsequent striking against object, initial encounter; I73.9 Peripheral vascular disease, unspecified; Z98.890 Other specified postprocedural states; I10 Essential (primary) hypertension; M79.7 Fibromyalgia; M19.90 Unspecified osteoarthritis, unspecified site; N32.81 Overactive bladder; G25.81 Restless legs syndrome; Z87.891 Personal history of nicotine dependence; B96.20 Unspecified Escherichia coli [E. coli] as the cause of diseases classified elsewhere; Z79.82 Long term (current) use of aspirin
CPT/HCPCS: 36415; 51702; 71045; 73502; 73562; 73590; 73700; 76000; 80048; 80053; 81001; 85025; 86850; 86900; 87077; 87086; 87186; 93005; 96372; 96374; 96375; 97110; 97116; 97161; 97166; 97530; 97535; 99285; C1713; C1776; J0690; J0696; J1650; J2270; J2405; J2704; J3010; J3490; J7030

== ENCOUNTER 2021-01-29 07:38 | Emergency (ER) | payer MEDICARE, SELFPAY ==
[2021-01-29 07:44] VITALS: BP 197/97; PULSE 102; RESP 18; TEMP 36.4; O2SAT 96; BMI 18.8
[2021-01-29] MEDS: ondansetron 2 mg/ML SDV 2 mL 4 MG IVP (08:00)
[2021-01-29 08:07] LABS: Basophils # 0.1 10^3/uL (0.0-0.1); Basophils % 0.5 %; Eosinophils # 0.1 10^3/uL (0.0-0.8); Eosinophils % 1.2 %; Hematocrit 37.9 % (37.0-47.0); Lymphocytes # 1.6 10^3/uL (0.8-4.8); Mean Corpuscular HGB Conc 31.7 g/dL (30.0-36.0); Mean Corpuscular Hemoglobin 28.6 pg (28.0-34.0); Mean Corpuscular Volume 90.2 fl (81-99); Mean Platelet Volume 10.8 fL (7.4-10.4); Monocytes # 0.8 10^3/uL (0.2-0.9); Monocytes % 6.9 %; Neutrophils # 8.88 10^3/uL (1.8-7.7); Neutrophils % 77.1 %; Nucleated Red Blood Cells % 0 %; Platelet Count 391 10^3/cmm (130-400); Red Cell Distribution Width 13.9 % (12.1-15.1); White Blood Count 11.5 10^3/uL (4.0-10.0)
[2021-01-29 08:17] LABS: Alanine Aminotransferase < 5 U/L (0-33); Albumin Level 3.5 g/dL (3.5-5.2); Alkaline Phosphatase 86 IU/L (35-105); Blood Urea Nitrogen 11 mg/dL (8-23); Calcium 10.1 mg/dL (8.5-10.5); Carbon Dioxide 27 mmol/L (22-29); Chloride 101 mmol/L (98-107); Globulin 3.2 g/dL (1.3-4.6); Glucose 91 mg/dL (65-115); Lipase 12 U/L (13-60); Osmolality Calculated 287 mOsm/kg (285-295); Sodium 139 mmol/L (136-145); Total Bilirubin 0.2 mg/dL (0.15-1.2); Total Protein 6.7 g/dL (6.6-8.7)
[2021-01-29 08:21] LABS: Aspartate Amino Transferase 11 U/L (0-32)
[2021-01-29 08:22] VITALS: BP 208/81; PULSE 74; O2SAT 94
--- NOTE | 2021-01-29 08:35 | XR_ITS ---
WS: [id number] ABDOMEN 2 VIEW(S) HISTORY: abd pain COMPARISON: None available. Severe constipation obstipation. Marked fecal retention within the RIGHT colon. No obstructive patter n. No free air is identified. No suspicious calcifications or masses. Osteopenia. Multiple surgical clips are noted at the LEFT inguinal region. Prior RIGHT hip arthroplas ty. XR/XR KUB portable [id number] IMPRESSION: Severe constipation and obstipation.
--- NOTE | 2021-01-29 08:41 | ED_ITS ---
HPI - Abdominal Pain General: Chief Complaint: Abdominal Pain Stated Complaint: ABDOMINAL PAIN Time Seen by Provider: 01/29/21 07:45 History of Present Illness: HPI narrative: 75-year-old female presents emergency room with complaint of abdominal pain and discomfort. She has tenderness to palpation. She states that she recently underwent a hip arthroplasty still waiting for more pain medication is been over 7 days since her last bowel movement. She is tried various ucan-nca-ejqmiyy medications with assistance of her to get relief from the constipation however has not had a bowel movement. Her is not here at the time I seen her so he was not able to tell me which medication she has tried and she could not remember. She denies any chest pain or shortness of breath. She denies any abdominal pain no leg swelling. No dysuria urgency or frequency no hematochezia melena hematemesis coffee-ground emesis. Patient has a history of hypertension has not taken her blood pressure medications this morning and blood pressure is elevated. MD elicited complaint: abdominal pain Pertinent past history: constipation Onset (ago): day(s) Pain Consistency: intermittent and colicky Location: Diffuse Severity: mild Quality: cramping Radiation: none Migration to: no migration Exacerbating factors: nothing Relieving factors: nothing Associated Symptoms: Reports bloating, nausea and poor appetite; Denies anorexia, belching, change in bowel habits, change in stool character, chills, coffee ground emesis, constipation, GI cramping, diarrhea, dyspepsia, dysuria, excessive flatus, fever(s), heartburn, hematochezia, hematuria, hematemesis, fecal incontinence, loose stools, melena, syncope and vomiting Review of Systems Const: Denies: fever(s) or chills ENMT: Denies: throat pain, ear or mastoid pain, nasal discharge or nasal congestion Card: Denies: syncope Resp: Denies: dyspnea, productive cough or non-productive cough GI: Reports: nausea and bloating; Denies: vomiting, hematemesis, coffee ground emesis, heartburn, diarrhea, constipation, GI cramping, belching, excessive flatus, fecal incontinence, change in bowel habits, change in stool character, hematochezia or melena : Denies: dysuria or hematuria Skin/Breast: Denies: rash or pruritus PFS ED PFSH: Medical History COVID-19 vaccine administered [employer] Fibromyalgia Hypertension Nicotine dependence, cigarettes, in remission Osteoarthritis Overactive bladder PAD (peripheral artery disease) RLS (restless legs syndrome) Urinary tract infection Surgical History History of hysterectomy History of neck surgery Postoperative state S/P femoral-popliteal bypass surgery Family History Other Heart disease Hypertension Stroke Denies family history of Anesthesia complication Bleeding disorder Social History Smoking and tobacco status: former smoker Quit status (tobacco): has quit using tobacco Former quit date comment: Quit smoking 1 month ago Alcohol intake: current Alcohol intake frequency: holidays/special occasions only Marital status: Physical Exam Const: COMMON NORMALS: no acute distress GENERAL APPEARANCE: cooperative and comfortable ORIENTATION/CONSCIOUSNESS: Yes awake, Yes oriented to person, Yes oriented to place and Yes oriented to time HENMT: COMMON NORMALS: normocephalic, atraumatic and hearing grossly normal bilaterally HEAD & SCALP: normocephalic and atraumatic Neck/C-Spine: COMMON NORMALS: no JVD Lymph: LYMPHATIC: no lymphadenopathy noted and no lymphedema noted Resp: COMMON NORMALS: normal respiratory effort, No retractions, No use of accessory muscles and clear to auscultation bilaterally AUSCULTATION: clear to auscultation bilaterally Cardio: COMMON NORMALS: no JVD, regular rate, regular rhythm and No murmurs present (Cardio) RATE: regular rate RHYTHM: regular rhythm GI: COMMON NORMALS: Soft to palpation and No hepatosplenomegaly present AUSCULTATION: Yes normoactive bowel sounds PALPATION: Yes Soft to palpation, No Tenderness to palpation present (GI), No Guarding due to palpation present (GI) and Yes No hepatosplenomegaly present Extremity: COMMON NORMALS: normal to inspection, capillary refill normal, no clubbing, cyanosis or edema, no calf tenderness and no pedal edema Neuro: SENSORIUM/ORIENTATION: Yes oriented to person, Yes oriented to place and Yes oriented to time Skin: COMMON NORMALS: no rashes or lesions noted GENERAL SKIN EXAM: no rashes or lesions noted Course Vital Signs: Vital signs: Vital Signs Temperature 98.3 F 01/29/21 11:18 Pulse Rate 92 01/29/21 11:18 Respiratory Rate 14 01/29/21 11:18 Blood Pressure 154/79 01/29/21 12:20 Pulse Oximetry 93 01/29/21 11:18 MDM - Abdominal Pain MDM Narrative: Medical decision making narrative: Labs EKG and imaging reviewed with the patient. She has some mild to moderate constipation but the significant hypertension. Blood pressure did improve while she was here working to add lisinopril and amlodipine request her to follow-up with her doctor within the next week. Start MiraLAX for prophylaxis for constipation and use magnesium citrate half a bottle every 8-12 hours until adequate results achieved. She has any worsening or change problems return to the emergency room. Stressed her the importance of following with primary care doctor blood pressure further monitored and medications adjustments made as needed. Lab Data: Labs: Lab Results 01/29/21 01/29/21 01/29/21 07:15 07:15 08:39 WBC 11.5 10^3/uL H 10 ^3/uL (4.0-10.0) RBC 4.20 10^6/uL 10^6 /uL (4.1-5.3) Hgb 12.0 g/dL g/dL (11.5-15.3) Hct 37.9 % % (37.0-47.0) MCV 90.2 fl fl (81-99) MCH 28.6 pg pg (28.0-34.0) MCHC 31.7 g/dL g/dL (30.0-36.0) RDW 13.9 % % (12.1-15.1) Plt Count 391 10^3/cmm 10^3 /cmm (130-400) MPV 10.8 fL H fL (7.4-10.4) Neut % (Auto) 77.1 % % Lymph % (Auto) 14.0 % % [place] % (Auto) 6.9 % % Eos % (Auto) 1.2 % % Baso % (Auto) 0.5 % % Neut # (Auto) 8.88 10^3/uL H 10 ^3/uL (1.8-7.7) Lymph # (Auto) 1.6 10^3/uL 10^3/ uL (0.8-4.8) [place] # (Auto) 0.8 10^3/uL 10^3/ uL (0.2-0.9) Eos # (Auto) 0.1 10^3/uL 10^3/ uL (0.0-0.8) Baso # (Auto) 0.1 10^3/uL 10^3/ uL (0.0-0.1) Nucleated RBC % (a uto) 0 % % Nucleated RBCs # 0.0 /100WBC /100W BC Sodium 139 mmol/L mmol/L (136-145) Potassium 4.0 mmol/L mmol/L (3.5-5.1) Chloride 101 mmol/L mmol/L (98-107) Carbon Dioxide 27 mmol/L mmol/L (22-29) Anion Gap 15.0 (5-19) BUN 11 mg/dL mg/dL (8-23) Creatinine 0.9 mg/dL mg/dL (0.5-0.9) GFR Calculation Not Reportable Glucose 91 mg/dL mg/dL (65-115) Calculated Osmolal ity 287 mOsm/kg mOsm/ kg (285-295) Calcium 10.1 mg/dL mg/dL (8.5-10.5) Total Bilirubin 0.2 mg/dL mg/dL (0.15-1.2) AST 11 U/L U/L (0-32) ALT < 5 U/L U/L (0-33) Alkaline Phosphata se 86 IU/L IU/L (35-105) Total Protein 6.7 g/dL g/dL (6.6-8.7) Albumin 3.5 g/dL g/dL (3.5-5.2) Globulin 3.2 g/dL g/dL (1.3-4.6) Lipase 12 U/L L U/L (13-60) Urine Color Straw (Yellow) Urine Appearance Clear (CLEAR) Urine pH 7 (5-7) Ur Specific Gravit y 1.010 (1.005-1.030) Urine Protein Neg (Negative) Urine Glucose (UA) Norm (Normal) Urine Ketones Negative (Negative) Urine Blood Neg (Negative) Urine Nitrate Negative (Negative) Urine Bilirubin Neg (Negative) Urine Urobilinogen Norm mg/dL mg/dL (Negative) Ur Leukocyte Pushpa ase Negative (Negative) Discharge Plan Discharge Patient Disposition: Home Clinical Impression: Constipation, Benign essential HTN Condition: Stable Prescriptions: New Miralax 17 gram/dose powder 17 g PO DAILY Qty: 510 RF: 0 magnesium citrate Solution 150 ml PO BID PRN (Reason: constipation) Qty: 296 RF: 2 amlodipine 5 mg tablet 5 mg PO DAILY Qty: 14 RF: 0 lisinopril 10 mg tablet 10 mg PO DAILY Qty: 14 RF: 0 No Action terbinafine HCl [Lamisil AT] 1 % cream 1 applic topical BID PRN (Reason: unknown) RF: 0 terbinafine HCl 250 mg tablet 250 mg PO DAILY RF: 0 mupirocin 2 % ointment 1 applic topical TID PRN (Reason: unknown) RF: 0 pramipexole [Mirapex] 0.125 mg tablet 0.125 mg PO QPM RF: 0 omeprazole 20 mg capsule,delayed release(DR/EC) 20 mg PO BID RF: 0 naproxen 500 mg tablet 500 mg PO BID RF: 0 furosemide 40 mg tablet 40 mg PO DAILY PRN (Reason: Edema) RF: 0 tramadol 50 mg tablet 100 mg PO BID PRN (Reason: Pain) RF: 0 Vitamin B-12 2,500 mcg Tablet, Sublingual 5,000 mcg sublingual DAILY RF: 0 aspirin 81 mg Tablet,Delayed Release (Dr/Ec) 81 mg PO QAM RF: 0 oxybutynin chloride 5 mg tablet 5 mg PO BEDTIME RF: 0 duloxetine 20 mg capsule,delayed release(DR/EC) 20 mg PO DAILY RF: 0 Vitamin D3 1 cap PO DAILY RF: 0 amlodipine 10 mg Tablet 10 mg PO DAILY Qty: 30 RF: 0 ferrous fumarate-folic acid 324 mg (106 mg iron)-1 mg tablet 1 tab PO QAM Qty: 60 RF: 0 levofloxacin 500 mg tablet 500 mg PO DAILY Qty: 1 RF: 0 Discharge Orders: Discharge ED (Routine); Ordered 01/29/21 Ordered By: Can Head Referrals: Crystal Mckee [Primary Care Provider] - Discharge Diet: Clear Liquid Discharge Activity: Resume usual activity Patient Instructions: Opioid Safety Activity Restrictions/Additional Instructions: Use MiraLAX daily to prevent repeat episodes of constipation while on the pain medications. Use mag citrate every 12 hours to relieve current constipation. Coding Level of Care Code ED Manager Activities for Kwan Barfield
[2021-01-29 08:57] LABS: Add Urine Microscopic? NO; Charge for UA Resulting for Rev
[2021-01-29 09:00] LABS: Bilirubin Urine Neg (Negative); Blood Urine Neg (Negative); Glucose Urine UA Norm (Normal); Ketones Urine Negative (Negative); Leukocyte Esterase Urine Negative (Negative); Nitrate Urine Negative (Negative); Protein Urine Neg (Negative); Urine Appearance Clear (CLEAR); Urine Color Straw (Yellow); Urobilinogen Urine Norm (Negative); pH Urine 7 (5-7)
[2021-01-29 09:01] VITALS: PULSE 82; RESP 14; O2SAT 94
[2021-01-29 11:18] VITALS: BP 200/93; PULSE 92; RESP 14; TEMP 36.8; O2SAT 93
[2021-01-29 12:20] VITALS: BP 154/79
== END 2021-01-29 12:23 | disposition home or self-care (01) ==
PROVIDERS: Emergency Provider Family Medicine; PCP Nurse Practitioner Family
DX: K59.00 Constipation, unspecified (principal); I10 Essential (primary) hypertension; Z79.82 Long term (current) use of aspirin; Z87.891 Personal history of nicotine dependence
CPT/HCPCS: 74018; 80053; 81003; 83690; 85025; 96374; 99284; J2405

== ENCOUNTER 2021-02-12 09:41 | Outpatient (CLI) | payer MEDICARE, SELFPAY ==
--- NOTE | 2021-02-12 | CT_ITS ---
WS: [id number] CT CHEST TECHNIQUE: Noncontrast CT of the chest with coronal and sagittal reformatted images. CLINICAL INFORMATION: PULMONARY NODULE COMPARISON: Chest radiograph 10/10 DLP: 477.[address] scans at [facility] use at least one of these dose optimization techniques: automated e xposure control; mA and/or kV adjustment per patient size (includes targeted exams where dose is matc hed to clinical indication); or iterative reconstruction. FINDINGS: Moderate chronic emphysematous changes. No acute pulmonary infiltrates. Lobulated bilobed pulmonary o pacity in the right lower lobe along the inferior hilum measuring 2.5 x 1.2 cm. No comparisons availa ble. Findings are nonspecific but suspicious for neoplasm. This can be further evaluated with PET/CT and bronchoscopy. No other suspicious pulmonary parenchymal opacities. Subsegmental atelectasis right lower lobe with a few tiny subpleural nodules. This is unchanged from August 23, 2020. Ectatic descending thoracic aorta measuring 3.6 cm. Normal descending thoracic aorta. Moderate aortic calcification. Slight nodularity left thyroid. No mediastinal or hilar lymphadenopathy. No axillary lymphadenopathy. Small esophageal hiatal hernia. Chronic elevation right hemidiaphragm. Moderate thoracic kyphosis. Co mpression fracture L1 vertebral body with mild anterior wedging is new from the CT abdomen and pelvis August 23, 2020. No retropulsion. Nondisplaced right L3 transverse process fracture is new from the prior CT August 23, 2020 CT/CT chest wo con [id number] IMPRESSION: 1. Mild acute to subacute compression fracture superior endplate at L1 is new since the abdomen pelvis CT August 23, 2020. This will be further discussed on concurrent lumbar spine MRI. 2. Hazy indeterminant lobulated groundglass opacity along the right inferior h ilum measuring 2.6 x 1.2 cm suspicious for neoplasm. Recommend further evaluati on with PET/CT and bronchoscopy. 3. Subsegmental atelectasis right lower lobe with a few tiny subpleural nodule s unchanged. 4. Nondisplaced right L3 transverse process fracture is new from the prior CT August 23, 2020 5. Slightly ectatic ascending thoracic aorta measuring 3.6 cm. 6. No mediastinal or hilar lymphadenopathy. 7. Moderate chronic emphysematous changes.
--- NOTE | 2021-02-12 10:29 | MR_ITS ---
WS: [id number] MRI LUMBAR SPINE WITH CONTRAST TECHNIQUE: Sagittal T1, T2 and STIR imaging. Axial T1 and T2 imaging. Post gadolinium imaging was obt ained. CLINICAL INFORMATION: LUMBAR DISCITIS COMPARISON: None. FINDINGS: Acute to subacute compression of the superior endplate L1 with mild chronic anterior wedging. Mild ed estee in the superior endplate. Loss of approximately 50% vertebral body height anteriorly.No retropuls ion. Disc space narrowing worse at L2-L3 L3-L4 with endplate Schmorl's nodes. Focal edema in the distal sa matt with presacral edema consistent with acute nondisplaced sacral fracture at S2-S3. No evidence of discitis. Prior postoperative changes cervical spine seen on the appliance mechanic imaging with fajardo sceptibility artifact. L1-L2: Minimal annular bulging. Slight effacement of the ventral thecal sac. Spinal canal and foramen are patent. L2-L3: Mild disc bulging with slight impingement on the traversing left L3 nerve root. Recommend bianca elation for left L3 nerve root symptoms. Mild right foraminal narrowing with small right foraminal pr otrusion. Mild facet arthropathy. L3-L4: Slight retrolisthesis. Mild disc osteophyte complex endplate ridging. Slight impingement trave rsing L4 nerve roots bilaterally with mild central canal stenosis. Mild facet arthropathy. Moderate l eft and mild right foraminal narrowing. L4-L5: Mild annular bulging with impingement traversing L5 nerve roots bilaterally right greater than left. Mild to moderate facet arthropathy. Mild bilateral foraminal narrowing. L5-S1: Slight anterolisthesis L5 on S1. Shallow central annular bulging slightly impinges the sonny ing S1 nerve roots bilaterally. Moderate facet arthropathy. Foramen are patent. MR/MR lumbar spine wo/w con [id number] IMPRESSION: 1. Acute to subacute compression of the superior endplate L1 with mild chronic anterior wedging. Mild edema in the superior endplate. Loss of approximately 5 0% vertebral body height anteriorly. 2. Focal edema in the distal sacrum with presacral edema consistent with acute nondisplaced sacral fracture at S2-S3. 3. No evidence of discitis. 4. Mild central canal stenosis L2-3 L3-4 due to disc bulging with osteophytic ridging in combination with facet arthropathy. 5. Mild central canal stenosis L4-5 with impingement on the traversing right g reater than left L5 nerve roots. 6. Shallow central disc bulge L5-S1 impinges the traversing S1 nerve roots livier aterally with slight anterolisthesis. 7. Multilevel foraminal narrowing described above.
[2021-02-12] MEDS: gadobenate dimeglumine 20 mL vial IV (11:25)
== END 2021-02-12 09:42 | disposition home or self-care (01) ==
PROVIDERS: PCP Nurse Practitioner Family; Visit Provider Nurse Practitioner Family
DX: R91.8 Other nonspecific abnormal finding of lung field (principal); M46.46 Discitis, unspecified, lumbar region; M48.061 Spinal stenosis, lumbar region without neurogenic claudication; R60.0 Localized edema; I77.810 Thoracic aortic ectasia; J98.11 Atelectasis; S32.019A Unspecified fracture of first lumbar vertebra, initial encounter for closed fracture; X58.XXXA Exposure to other specified factors, initial encounter
CPT/HCPCS: 71250; 72158; A9577

== ENCOUNTER 2021-02-17 19:01 | Inpatient (IN) | payer MEDICARE, SELFPAY ==
[2021-02-17 19:06] VITALS: BP 111/68; PULSE 105; RESP 17; TEMP 36.9; O2SAT 99; BMI 22.6
--- NOTE | 2021-02-17 19:22 | ECG_ITS ---
[facility] Test Date: 2021-02-17 Pat Name: Gabriella Hidalgo Department: Room: Gender: Female Rn Med Surg: : 1945 Requested By: Lio Ren Order Number: [id number] Reading MD: MONE LESTER Measurements Intervals [place] Rate: 116 P: 82 [place]: 147 QRS: 52 QRSD: 79 T: 75 QT: 316 QTc: 439 Interpretive Statements SINUS TACHYCARDIA SEPTAL MYOCARDIAL INFARCTION , OF INDETERMINATE AGE [40+ ms Q WAVE IN V1/V2] Compared to ECG 09/28/2020 04:52:55 Sinus rhythm no longer present T-wave abnormality no longer present Possible ischemia no longer present Myocardial infarct finding still present Electronically Signed On 02-18-2021 12:57:57 TELEPHONE LINES REPAIRER by MONE LESTER [id number]
[2021-02-17] MEDS: lactated ringers 1,000 ML 999 ML IV (19:25)
--- NOTE | 2021-02-17 19:28 | W.ED.GENADLT ---
HPI - General Adult General: Chief complaint: Weakness Stated complaint: WEAKNESS Time Seen by Provider: 02/17/21 19:09 History of Present Illness: HPI narrative: Patient is a 75-year-old female with history of recent L1 compression fracture, sacral fracture S2/S3 on MRI from 02/12 who was recently mated to hospital for concerns of constipation presenting to the emergency room with sudden onset of generalized weakness x1 day in the setting of diarrhea. Patient tells me that she has been having loose stool for the whole day. Earlier today, patient was sitting down on the couch watching TV when she tried to stand up and felt very weak but could not. Patient denies any focal weakness onset of weakness, diplopia, dysarthria, difficulty speaking, double vision, or cranial nerve deficit. Patient says me that someone else has to help her to get up. EMS was called patient was brought to the emergency room for evaluation. On arrival, patient reports generalized weakness, denies chest pain, shortness breath, palpitation, lightheadedness, focal weakness at this time. Denies any fever chill, cough, runny nose, sore throat, melena hematochezia. Patient reports multiple episodes of loose stool today. Denies any recent antibiotics or recent travel. No complaints of abdominal pain, or complaints at this time. Patient denies any changes in p.o. intake. Patient reports that she has had 4 episodes of loose stool earlier today. Rest of history limited by occasional confusion difficulty hearing conversation. Of note, patient was evaluated seen on 01/29/2021 for constipation which point time was prescribed MiraLAX and magnesium citrate. Patient said that she has been having loose stool since previously seen. Onset:1 day ago Duration:1 day Location:ongoing Severity:home Review of Systems Narrative: Constitutional: No fever, no chills. HEENT: No vision changes CV: No chest pain, no palpitations PULM: no cough, no dyspnea. GI: No abdominal pain, -N/-V/+D. : No dysuria MSKEL: No muscle pain SKIN: No new rashes, no lesions. NEURO: No headache, no focal weakness. +Generalized weakness, +confusion HEME: No visible bruises PSYCH: Normal mood BACK: no focal tenderness to plaption [facility] PFSH: Medical History COVID-19 vaccine administered [employer] Fibromyalgia Hypertension Nicotine dependence, cigarettes, in remission Osteoarthritis Overactive bladder PAD (peripheral artery disease) RLS (restless legs syndrome) Urinary tract infection Surgical History History of hysterectomy History of neck surgery Postoperative state S/P femoral-popliteal bypass surgery Family History Other Heart disease Hypertension Stroke Denies family history of Anesthesia complication Bleeding disorder Social History Smoking and tobacco status: former smoker Quit status (tobacco): has quit using tobacco Former quit date comment: Quit smoking 1 month ago Alcohol intake: current Alcohol intake frequency: holidays/special occasions only Marital status: Physical Exam Narrative: EXAM NARRATIVE: Head: Atraumatic Eyes: PERRL, conjunctiva without injection ENT: Mucous membrane Dry NECK: Supple, ROM intact LUNGS: LCTAB, no crackles/rhonchi CV: Sinus tachycardia ABDOMEN: Soft, no focal TTP. NO guarding rebound, guarding, rigidity. No CVA tenderness to percussion. Neg Benites/Neg McBurney's point tenderness, no suprabupic tenderness to palpation. EXTREMITY: Normal ROM SKIN: No rash or erythema NEURO: Awake and alert, no focal motor deficits PSYCH: Normal mood and affect Course Vital Signs: Vital signs: Vital Signs Temperature 97.9 F 02/19/21 20:00 Pulse Rate 96 02/19/21 20:00 Respiratory Rate 18 02/19/21 20:00 Blood Pressure 155/63 02/19/21 20:00 Pulse Oximetry 93 02/19/21 20:00 MDM - General Adult MDM Narrative: Medical decision making narrative: Patient is a 75-year-old female with a history of recent L1 compression fracture, sacral fracture S2-S3 on MRI from 02/12, previously hospitalization presenting to the emergency room for evaluation of new onset of diarrhea x2 days. On exam, patient appears to be dry dehydrated, moderately tachycardic to 120s. Given new onset of diarrhea and recent hospital evaluations, this is concerning for possible C. difficile. Patient denies any nausea or vomiting or abdominal pain at this time Her current 15.1. Hemoglobin 10 point consistent with baseline. Creatinine 1.0. Patient given 2 L of LR with significant improvement heart rate to the low 100s. Concern for C. difficile, generalized weakness, inability ambulate, patient will be admitted to hospital for rehydration. Patient is given metronidazole 500 mg for possible C. difficile. Pending C. difficile culture at this time. Disposition: Admission Lab Data: Labs: Lab Results 02/17/21 02/17/21 02/17/21 19:25 19:25 19:25 WBC 15.1 10^3/uL H 10 ^3/uL (4.0-10.0) RBC 3.56 10^6/uL L 10 ^6/uL (4.1-5.3) Hgb 10.1 g/dL L g/dL (11.5-15.3) Hct 32.2 % L % (37.0-47.0) MCV 90.4 fl fl (81-99) MCH 28.4 pg pg (28.0-34.0) MCHC 31.4 g/dL g/dL (30.0-36.0) RDW 14.6 % % (12.1-15.1) Plt Count 335 10^3/cmm 10^3 /cmm (130-400) MPV 10.2 fL fL (7.4-10.4) Neut % (Auto) 82.3 % % Lymph % (Auto) 9.8 % % [place] % (Auto) 5.8 % % Eos % (Auto) 0.7 % % Baso % (Auto) 0.5 % % Neut # (Auto) 12.41 10^3/uL H 1 0^3/uL (1.8-7.7) Lymph # (Auto) 1.5 10^3/uL 10^3/ uL (0.8-4.8) [place] # (Auto) 0.9 10^3/uL 10^3/ uL (0.2-0.9) Eos # (Auto) 0.1 10^3/uL 10^3/ uL (0.0-0.8) Baso # (Auto) 0.1 10^3/uL 10^3/ uL (0.0-0.1) Nucleated RBC % (a uto) 0 % % Nucleated RBCs # 0.0 /100WBC /100W BC PT 15.00 SECONDS H S ECONDS (12.1-14.9) INR 1.15 (0.8-1.2) APTT 25.2 SECONDS SECO NDS (23.9-36.7) Sodium 139 mmol/L mmol/L (136-145) Potassium 4.4 mmol/L mmol/L (3.5-5.1) Chloride 103 mmol/L mmol/L (98-107) Carbon Dioxide 22 mmol/L mmol/L (22-29) Anion Gap 18.4 (5-19) BUN 29 mg/dL H mg/dL (8-23) Creatinine 1.0 mg/dL H mg/dL (0.5-0.9) GFR Calculation Not Reportable Glucose 136 mg/dL H mg/dL (65-115) POC Glucose Calculated Osmolal ity 296 mOsm/kg H mOs m/kg (285-295) Lactate Calcium 9.5 mg/dL mg/dL (8.5-10.5) Magnesium Iron TIBC % Saturation Unsat Iron Binding Ferritin Total Bilirubin 0.2 mg/dL mg/dL (0.15-1.2) AST 10 U/L U/L (0-32) ALT < 5 U/L U/L (0-33) Alkaline Phosphata se 80 IU/L IU/L (35-105) Troponin T Gen 5 n g/L Total Protein 5.3 g/dL L g/dL (6.6-8.7) Albumin 3.5 g/dL g/dL (3.5-5.2) Globulin 1.8 g/dL g/dL (1.3-4.6) Lipase 21 U/L U/L (13-60) Vitamin B12 Folate Procalcitonin Urine Color Urine Appearance Urine pH Ur Specific Gravit y Urine Protein Urine Glucose (UA) Urine Ketones Urine Blood Urine Nitrate Urine Bilirubin Urine Urobilinogen Ur Leukocyte [place] Urine RBC Urine WBC Ur Squamous Epith Cells Amorphous Sediment Urine Bacteria SARS-CoV-2 Ag (Rap id) Blood Type Rho(D) Type Antibody Screen Crossmatch 02/17/21 02/17/21 02/17/21 19:25 19:25 20:00 WBC RBC Hgb Hct MCV MCH MCHC RDW Plt Count MPV Neut % (Auto) Lymph % (Auto) [place] % (Auto) Eos % (Auto) Baso % (Auto) Neut # (Auto) Lymph # (Auto) [place] # (Auto) Eos # (Auto) Baso # (Auto) Nucleated RBC % (a uto) Nucleated RBCs # PT INR APTT Sodium Potassium Chloride Carbon Dioxide Anion Gap BUN Creatinine GFR Calculation Glucose POC Glucose Calculated Osmolal ity Lactate 2.1 mmol/L mmol/L (0.5-2.2) Calcium Magnesium Iron TIBC % Saturation Unsat Iron Binding Ferritin Total Bilirubin AST ALT Alkaline Phosphata se Troponin T Gen 5 n g/L 19 ng/L H ng/L (0-10) Total Protein Albumin Globulin Lipase Vitamin B12 Folate Procalcitonin Urine Color Urine Appearance Urine pH Ur Specific Gravit y Urine Protein Urine Glucose (UA) Urine Ketones Urine Blood Urine Nitrate Urine Bilirubin Urine Urobilinogen Ur Leukocyte [place] Urine RBC Urine WBC Ur Squamous Epith Cells Amorphous Sediment Urine Bacteria SARS-CoV-2 Ag (Rap id) Negative (Negative) Blood Type Rho(D) Type Antibody Screen Crossmatch 02/17/21 02/18/21 02/18/21 20:30 09:57 09:57 WBC 11.6 10^3/uL H 10 ^3/uL (4.0-10.0) RBC 2.71 10^6/uL L 10 ^6/uL (4.1-5.3) Hgb 7.7 g/dL L g/dL (11.5-15.3) Hct 24.9 % L % (37.0-47.0) MCV 91.9 fl fl (81-99) MCH 28.4 pg pg (28.0-34.0) MCHC 30.9 g/dL g/dL (30.0-36.0) RDW 14.9 % % (12.1-15.1) Plt Count 280 10^3/cmm 10^3 /cmm (130-400) MPV 10.0 fL fL (7.4-10.4) Neut % (Auto) 74.2 % % Lymph % (Auto) 17.6 % % [place] % (Auto) 6.5 % % Eos % (Auto) 0.4 % % Baso % (Auto) 0.9 % % Neut # (Auto) 8.61 10^3/uL H 10 ^3/uL (1.8-7.7) Lymph # (Auto) 2.1 10^3/uL 10^3/ uL (0.8-4.8) [place] # (Auto) 0.8 10^3/uL 10^3/ uL (0.2-0.9) Eos # (Auto) 0.1 10^3/uL 10^3/ uL (0.0-0.8) Baso # (Auto) 0.1 10^3/uL 10^3/ uL (0.0-0.1) Nucleated RBC % (a uto) 0 % % Nucleated RBCs # 0.0 /100WBC /100W BC PT INR APTT Sodium 141 mmol/L mmol/L (136-145) Potassium 4.5 mmol/L mmol/L (3.5-5.1) Chloride 109 mmol/L H mmol /L (98-107) Carbon Dioxide 22 mmol/L mmol/L (22-29) Anion Gap 14.5 (5-19) BUN 31 mg/dL H mg/dL (8-23) Creatinine 1.0 mg/dL H mg/dL (0.5-0.9) GFR Calculation Not Reportable Glucose 89 mg/dL mg/dL (65-115) POC Glucose Calculated Osmolal ity 298 mOsm/kg H mOs m/kg (285-295) Lactate Calcium 8.6 mg/dL mg/dL (8.5-10.5) Magnesium 1.5 mg/dL L mg/dL (1.7-2.3) Iron TIBC % Saturation Unsat Iron Binding Ferritin Total Bilirubin 0.2 mg/dL mg/dL (0.15-1.2) AST 9 U/L U/L (0-32) ALT < 5 U/L U/L (0-33) Alkaline Phosphata se 67 IU/L IU/L (35-105) Troponin T Gen 5 n g/L Total Protein 4.5 g/dL L g/dL (6.6-8.7) Albumin 3.0 g/dL L g/dL (3.5-5.2) Globulin 1.5 g/dL g/dL (1.3-4.6) Lipase Vitamin B12 Folate Procalcitonin Urine Color Yellow (Yellow) Urine Appearance Sl cloudy A (CLEAR) Urine pH 5 (5-7) Ur Specific Gravit y 1.015 (1.005-1.030) Urine Protein Neg (Negative) Urine Glucose (UA) Norm (Normal) Urine Ketones Negative (Negative) Urine Blood Neg (Negative) Urine Nitrate Negative (Negative) Urine Bilirubin 1+ H (Negative) Urine Urobilinogen Norm mg/dL mg/dL (Negative) Ur Leukocyte [place] Negative (Negative) Urine RBC 0-4 /hpf H /hpf (0-2) Urine WBC 0-4 /hpf H /hpf (0-5) Ur Squamous Epith Cells 5-10 /hpf H /hpf (0-5) Amorphous Sediment Not Reportable Urine Bacteria 4+ /hpf H /hpf (NONE) SARS-CoV-2 Ag (Rap id) Blood Type Rho(D) Type Antibody Screen Crossmatch 02/18/21 02/18/21 02/18/21 09:57 09:57 09:57 WBC RBC Hgb Hct MCV MCH MCHC RDW Plt Count MPV Neut % (Auto) Lymph % (Auto) [place] % (Auto) Eos % (Auto) Baso % (Auto) Neut # (Auto) Lymph # (Auto) [place] # (Auto) Eos # (Auto) Baso # (Auto) Nucleated RBC % (a uto) Nucleated RBCs # PT INR APTT Sodium Potassium Chloride Carbon Dioxide Anion Gap BUN Creatinine GFR Calculation Glucose POC Glucose Calculated Osmolal ity Lactate Calcium Magnesium Iron 51 ug/dL ug/dL (37-145) TIBC 152 mcg/dl mcg/dl % Saturation 33.5 % % (20-50) Unsat Iron Binding 101 ug/dL L ug/dL (112-347) Ferritin 68 ng/mL ng/mL (15-150) Total Bilirubin AST ALT Alkaline Phosphata se Troponin T Gen 5 n g/L Total Protein Albumin Globulin Lipase Vitamin B12 655 pg/mL pg/mL (232-1245) Folate 6.3 ng/mL ng/mL (4.8-37.3) Procalcitonin 0.49 ng/mL ng/mL (0-0.5) Urine Color Urine Appearance Urine pH Ur Specific Gravit y Urine Protein Urine Glucose (UA) Urine Ketones Urine Blood Urine Nitrate Urine Bilirubin Urine Urobilinogen Ur Leukocyte [place] Urine RBC Urine WBC Ur Squamous Epith Cells Amorphous Sediment Urine Bacteria SARS-CoV-2 Ag (Rap id) Blood Type Rho(D) Type Antibody Screen Crossmatch 02/18/21 02/18/21 02/19/21 13:38 18:37 06:05 WBC 10.9 10^3/uL H 10 ^3/uL (4.0-10.0) RBC 1.80 10^6/uL L 10 ^6/uL (4.1-5.3) Hgb 8.3 g/dL L g/dL 5.1 g/dL L* D g/d L (11.5-15.3) (11.5-15.3) Hct 26.5 % L % 16.1 % L* D % (37.0-47.0) (37.0-47.0) MCV 89.4 fl fl (81-99) MCH 28.3 pg pg (28.0-34.0) MCHC 31.7 g/dL g/dL (30.0-36.0) RDW 14.9 % % (12.1-15.1) Plt Count 247 10^3/cmm 10^3 /cmm (130-400) MPV 11.4 fL H fL (7.4-10.4) Neut % (Auto) 74.7 % % Lymph % (Auto) 13.8 % % [place] % (Auto) 10.1 % % Eos % (Auto) 0.1 % % Baso % (Auto) 0.5 % % Neut # (Auto) 8.15 10^3/uL H 10 ^3/uL (1.8-7.7) Lymph # (Auto) 1.5 10^3/uL 10^3/ uL (0.8-4.8) [place] # (Auto) 1.1 10^3/uL H 10^ 3/uL (0.2-0.9) Eos # (Auto) 0.0 10^3/uL 10^3/ uL (0.0-0.8) Baso # (Auto) 0.1 10^3/uL 10^3/ uL (0.0-0.1) Nucleated RBC % (a uto) 0.2 % % Nucleated RBCs # 0.0 /100WBC /100W BC PT INR APTT Sodium Potassium Chloride Carbon Dioxide Anion Gap BUN Creatinine GFR Calculation Glucose POC Glucose 147 mg/dL H mg/dL (70-110) Calculated Osmolal ity Lactate Calcium Magnesium Iron TIBC % Saturation Unsat Iron Binding Ferritin Total Bilirubin AST ALT Alkaline Phosphata se Troponin T Gen 5 n g/L Total Protein Albumin Globulin Lipase Vitamin B12 Folate Procalcitonin Urine Color Urine Appearance Urine pH Ur Specific Gravit y Urine Protein Urine Glucose (UA) Urine Ketones Urine Blood Urine Nitrate Urine Bilirubin Urine Urobilinogen Ur Leukocyte [place] Urine RBC Urine WBC Ur Squamous Epith Cells Amorphous Sediment Urine Bacteria SARS-CoV-2 Ag (Rap id) Blood Type Rho(D) Type Antibody Screen Crossmatch 02/19/21 02/19/21 06:05 09:12 WBC RBC Hgb Hct MCV MCH MCHC RDW Plt Count MPV Neut % (Auto) Lymph % (Auto) [place] % (Auto) Eos % (Auto) Baso % (Auto) Neut # (Auto) Lymph # (Auto) [place] # (Auto) Eos # (Auto) Baso # (Auto) Nucleated RBC % (a uto) Nucleated RBCs # PT INR APTT Sodium 141 mmol/L mmol/L (136-145) Potassium 4.7 mmol/L mmol/L (3.5-5.1) Chloride 112 mmol/L H mmol /L (98-107) Carbon Dioxide 21 mmol/L L mmol/ L (22-29) Anion Gap 12.7 (5-19) BUN 42 mg/dL H mg/dL (8-23) Creatinine 1.1 mg/dL H mg/dL (0.5-0.9) GFR Calculation Not Reportable Glucose 92 mg/dL mg/dL (65-115) POC Glucose Calculated Osmolal ity 302 mOsm/kg H mOs m/kg (285-295) Lactate Calcium 8.5 mg/dL mg/dL (8.5-10.5) Magnesium 2.2 mg/dL mg/dL (1.7-2.3) Iron TIBC % Saturation Unsat Iron Binding Ferritin Total Bilirubin 0.2 mg/dL mg/dL (0.15-1.2) AST 25 U/L U/L (0-32) ALT 6 U/L U/L (0-33) Alkaline Phosphata se 60 IU/L IU/L (35-105) Troponin T Gen 5 n g/L Total Protein 4.1 g/dL L g/dL (6.6-8.7) Albumin 2.7 g/dL L g/dL (3.5-5.2) Globulin 1.4 g/dL g/dL (1.3-4.6) Lipase Vitamin B12 Folate Procalcitonin Urine Color Urine Appearance Urine pH Ur Specific Gravit y Urine Protein Urine Glucose (UA) Urine Ketones Urine Blood Urine Nitrate Urine Bilirubin Urine Urobilinogen Ur Leukocyte [place] Urine RBC Urine WBC Ur Squamous Epith Cells Amorphous Sediment Urine Bacteria SARS-CoV-2 Ag (Rap id) Blood Type O Positive Rho(D) Type Positive Antibody Screen Negative Crossmatch See Detail Imaging Data^: Other Imaging: Radiologist's impression: [id number] [place], [place] [id number] Scan ReportSigned Patient: Gabriella Hidalgo #: [id number]: [id number]#:[id number]/Sex: 75 / FADM Date: 02/17/21Loc: [facility]oom/Bed:Attending Dr: Ordering Provider/Ordering MD: Lio Ren MD Date of Service: 02/17/21 Procedure(s): CT head wo con* [id number] Accession Number(s): [id number] Report Number: [id number] PROCEDURE INFORMATION: Exam: CT Head Without Contrast Exam date and time: 02/17/2021 7:34 PM Age: 75 years old Clinical indication: Altered mental status/memory loss; Confusion or disorientation; Additional info: AMS TECHNIQUE: Imaging protocol: Computed tomography of the head without contrast. Radiation optimization: All CT scans at this facility use at least one of these dose optimization techniques: automated exposure control; mA and/or kV adjustment per patient size (includes targeted exams where dose is matched to clinical indication); or iterative reconstruction. COMPARISON: ID bone scan whole body* [id number] 2020-09-12 08:41 RADIATION DOSE METRICS: Total DLP (mGy-cm): 763.49 FINDINGS: Brain: Diffuse moderate cerebral age related volume loss. Moderate patchy low attenuation in the white matter compatible with moderate chronic small vessel ischemic disease. No midline shift, mass, fluid collection, or evidence of hemorrhage. Cerebral ventricles: Ventricles are enlarged somewhat out of proportion to the cerebral sulci. Differential includes communicating hydrocephalus or central volume loss. Paranasal sinuses: Visualized sinuses are unremarkable. No fluid levels. Mastoid air cells: Visualized mastoid air cells are well aerated. Bones/joints: Unremarkable. No acute fracture. Soft tissues: Unremarkable. CT/CT head wo con* [id number] IMPRESSION: 1. Ventricles are enlarged somewhat out of proportion to the cerebral sulci. Differential includes communicating hydrocephalus or central volume loss. Correlate for urinary incontinence, dementia, and gait disturbances. 2. Otherwise, involutional changes without acute abnormality. Radiation Dose CTDIVOL = (mGy): DLP = 763.49 (mGy-cm) Dictated By:Albert Parker MDSigned By:Albert Parker MDSigned Date/Time:02/17/213DD/ [id number] [id number] Scan ReportSigned Patient: Gabriella Hidalgo #: [id number]: [id number]#:[id number]/Sex: 75 / FADM Date: 02/17/21[facility]: Leesa Henry MD Ordering Provider/Ordering MD: Lio Ren MD Date of Service: 02/17/21 Procedure(s): CT abdomen pelvis w con* [id number] Accession Number(s): [id number] Report Number: [id number] PROCEDURE INFORMATION: Exam: CT Abdomen And Pelvis With Contrast Exam date and time: 02/17/2021 8:02 PM Age: 75 years old Clinical indication: Prior surgery; Surgery date: 6+ months; Surgery type: Hyst; Patient HX: C/O weakness and diarrhea; Additional info: Eval c diff infection TECHNIQUE: Imaging protocol: Computed tomography of the abdomen and pelvis with contrast. Radiation optimization: All CT scans at this facility use at least one of these dose optimization techniques: automated exposure control; mA and/or kV adjustment per patient size (includes targeted exams where dose is matched to clinical indication); or iterative reconstruction. Contrast material: VISI 320; Contrast volume: 75 ml; Contrast route: INTRAVENOUS (IV); COMPARISON: 1. CT abdomen wo con [id number] 2020-09-12 10:50 2. CR XR KUB portable [id number] 2021-01-29 08:39 RADIATION DOSE METRICS: Total DLP (mGy-cm): 634.37 FINDINGS: Tubes, catheters and devices: A balloon bladder catheter is present. Lungs: Right lower lobe infectious or inflammatory few micro nodules. Liver: Normal. No mass. Gallbladder and bile ducts: Decompressed gallbladder. Pancreas: Normal. No ductal dilation. Spleen: Normal. No splenomegaly. Adrenal glands: Normal. No mass. Kidneys and ureters: Renal atrophy. Small, less than 5 mm, renal hypodensity. Highly likely to be benign and does not require follow-up imaging or biopsy per ACR. Stomach and bowel: Gastroesophageal junction shouldering in thickening, correlate for esophagitis. Gastric distention with fluid. Excess stool within the rectum with mild adjacent stranding, question mild infectious or inflammatory colitis, or stercoral colitis. The absence of thickening of the remainder of the colon, and slightly thickened contractile small-bowel mitigates against Clostridium difficile infection, though not excluded, could be early or mild. Perhaps viral enterocolitis or toxin ingestion/food poisoning. Appendix: No evidence of appendicitis. Intraperitoneal space: Unremarkable. No free air. No significant fluid collection. Vasculature: Mild to moderate aortic and iliac artery atherosclerotic calcification. Moderate right proximal common iliac artery stenosis. Occluded right proximal femoral artery and moderate right common femoral artery stenosis. Bulky calcification of the aorta at the origin of the celiac and SMA. Lymph nodes: Unremarkable. No enlarged lymph nodes. Urinary bladder: Unremarkable as visualized. Reproductive: Unremarkable as visualized. Bones/joints: Right hip open reduction and internal fixation. Mild dextroconvex lumbar curvature. Mild lumbar spondylosis. Moderate S-shaped thoracic lumbar scoliosis. Chronic appearing L1 mild compression fracture. Soft tissues: Unremarkable. CT/CT abdomen pelvis w con* [id number] IMPRESSION: 1. Few right lower lobe infectious or inflammatory micro nodules. 2. Excess stool within the rectum with mild adjacent stranding, correlate for mild infectious or inflammatory colitis, or stercoral colitis. The absence of thickening of the remainder of the colon, and slightly thickened contractile small-bowel mitigates against Clostridium difficile infection, though not excluded, could be early or mild. Perhaps viral enterocolitis or toxin ingestion/food poisoning. 3. Occluded right proximal femoral artery and moderate right common femoral artery stenosis. 4. Chronic appearing L1 mild compression fracture. COMMENTS: Consistent with the [place] [employer]'s Incidental Findings Committee white paper (J Am Antwon Radiol 2018): Any incidental renal lesion less than 1 cm or classified as too small to characterize, or any incidental cystic renal lesion characterized as simple-appearing, is likely benign. No follow-up imaging is recommended for these lesions per consensus recommendations based on imaging criteria. Radiation Dose CTDIVOL = (mGy): DLP = 634.37 (mGy-cm) Dictated By:Albert Parker MDSigned By:Albert Parker MDSigned Date/Time:02/17/212204DD/ 01 Discharge Plan Discharge Patient Disposition: Admitted As Inpatient Admit Provider: Leesa Henry Clinical Impression: Generalized weakness, Dehydration, Acute diarrhea, Confusion Condition: Stable Coding Level of Care Code ED Plate Embosser for Kwan Barfield
--- NOTE | 2021-02-17 19:34 | CTR_ITS ---
PROCEDURE INFORMATION: Exam: CT Head Without Contrast Exam date and time: 02/17/2021 7:34 PM Age: 75 years old Clinical indication: Altered mental status/memory loss; Confusion or disorientation; Additional info: AMS TECHNIQUE: Imaging protocol: Computed tomography of the head without contrast. Radiation optimization: All CT scans at this facility use at least one of these dose optimization techniques: automated exposure control; mA and/or kV adjustment per patient size (includes targeted exams where dose is matched to clinical indication); or iterative reconstruction. COMPARISON: [place] bone scan whole body* [id number] 2020-09-12 08:41 RADIATION DOSE METRICS: Total DLP (mGy-cm): 763.49 FINDINGS: Brain: Diffuse moderate cerebral age related volume loss. Moderate patchy low attenuation in the white matter compatible with moderate chronic small vessel ischemic disease. No midline shift, mass, fluid collection, or evidence of hemorrhage. Cerebral ventricles: Ventricles are enlarged somewhat out of proportion to the cerebral sulci. Differential includes communicating hydrocephalus or central volume loss. Paranasal sinuses: Visualized sinuses are unremarkable. No fluid levels. Mastoid air cells: Visualized mastoid air cells are well aerated. Bones/joints: Unremarkable. No acute fracture. Soft tissues: Unremarkable. CT/CT head wo con* [id number] IMPRESSION: 1. Ventricles are enlarged somewhat out of proportion to the cerebral sulci. Differential includes communicating hydrocephalus or central volume loss. Correlate for urinary incontinence, dementia, and gait disturbances. 2. Otherwise, involutional changes without acute abnormality. Radiation Dose CTDIVOL = (mGy): DLP = 763.49 (mGy-cm)
[2021-02-17 19:37] LABS: Basophils # 0.1 10^3/uL (0.0-0.1); Basophils % 0.5 %; Eosinophils # 0.1 10^3/uL (0.0-0.8); Eosinophils % 0.7 %; Hematocrit 32.2 % (37.0-47.0); Hemoglobin 10.1 g/dL (11.5-15.3); Lymphocytes # 1.5 10^3/uL (0.8-4.8); Lymphocytes % 9.8 %; Mean Corpuscular HGB Conc 31.4 g/dL (30.0-36.0); Mean Corpuscular Hemoglobin 28.4 pg (28.0-34.0); Mean Corpuscular Volume 90.4 fl (81-99); Mean Platelet Volume 10.2 fL (7.4-10.4); Monocytes # 0.9 10^3/uL (0.2-0.9); Monocytes % 5.8 %; Neutrophils # 12.41 10^3/uL (1.8-7.7); Neutrophils % 82.3 %; Nucleated Red Blood Cells % 0 %; Platelet Count 335 10^3/cmm (130-400); Red Blood Count 3.56 10^6/uL (4.1-5.3); Red Cell Distribution Width 14.6 % (12.1-15.1); White Blood Count 15.1 10^3/uL (4.0-10.0)
[2021-02-17 19:40] LABS: INR 1.15 (0.8-1.2)
[2021-02-17 19:41] LABS: Partial Thromboplastin Time 25.2 SECONDS (23.9-36.7)
[2021-02-17 19:47] LABS: Lactate (Lactic Acid level) 2.1 mmol/L (0.5-2.2)
[2021-02-17 19:48] LABS: Alanine Aminotransferase < 5 U/L (0-33); Albumin Level 3.5 g/dL (3.5-5.2); Alkaline Phosphatase 80 IU/L (35-105); Anion Gap 18.4 (5-19); Aspartate Amino Transferase 10 U/L (0-32); Blood Urea Nitrogen 29 mg/dL (8-23); Calcium 9.5 mg/dL (8.5-10.5); Carbon Dioxide 22 mmol/L (22-29); Chloride 103 mmol/L (98-107); Globulin 1.8 g/dL (1.3-4.6); Glucose 136 mg/dL (65-115); Lipase 21 U/L (13-60); Osmolality Calculated 296 mOsm/kg (285-295); Potassium 4.4 mmol/L (3.5-5.1); Sodium 139 mmol/L (136-145); Total Bilirubin 0.2 mg/dL (0.15-1.2); Total Protein 5.3 g/dL (6.6-8.7)
[2021-02-17 19:54] LABS: Troponin T (5th) Once 19 ng/L (0-10)
[2021-02-17 20:00] VITALS: BP 113/57; PULSE 89; RESP 22; O2SAT 96
--- NOTE | 2021-02-17 20:02 | CTR_ITS ---
PROCEDURE INFORMATION: Exam: CT Abdomen And Pelvis With Contrast Exam date and time: 02/17/2021 8:02 PM Age: 75 years old Clinical indication: Prior surgery; Surgery date: 6+ months; Surgery type: Hyst; Patient HX: C/O weakness and diarrhea; Additional info: Eval c diff infection TECHNIQUE: Imaging protocol: Computed tomography of the abdomen and pelvis with contrast. Radiation optimization: All CT scans at this facility use at least one of these dose optimization techniques: automated exposure control; mA and/or kV adjustment per patient size (includes targeted exams where dose is matched to clinical indication); or iterative reconstruction. Contrast material: VISI 320; Contrast volume: 75 ml; Contrast route: INTRAVENOUS (IV); COMPARISON: 1. CT abdomen wo con [id number] 2020-09-12 10:50 2. CR XR KUB portable [id number] 2021-01-29 08:39 RADIATION DOSE METRICS: Total DLP (mGy-cm): 634.37 FINDINGS: Tubes, catheters and devices: A balloon bladder catheter is present. Lungs: Right lower lobe infectious or inflammatory few micro nodules. Liver: Normal. No mass. Gallbladder and bile ducts: Decompressed gallbladder. Pancreas: Normal. No ductal dilation. Spleen: Normal. No splenomegaly. Adrenal glands: Normal. No mass. Kidneys and ureters: Renal atrophy. Small, less than 5 mm, renal hypodensity. Highly likely to be benign and does not require follow-up imaging or biopsy per ACR. Stomach and bowel: Gastroesophageal junction shouldering in thickening, correlate for esophagitis. Gastric distention with fluid. Excess stool within the rectum with mild adjacent stranding, question mild infectious or inflammatory colitis, or stercoral colitis. The absence of thickening of the remainder of the colon, and slightly thickened contractile small-bowel mitigates against Clostridium difficile infection, though not excluded, could be early or mild. Perhaps viral enterocolitis or toxin ingestion/food poisoning. Appendix: No evidence of appendicitis. Intraperitoneal space: Unremarkable. No free air. No significant fluid collection. Vasculature: Mild to moderate aortic and iliac artery atherosclerotic calcification. Moderate right proximal common iliac artery stenosis. Occluded right proximal femoral artery and moderate right common femoral artery stenosis. Bulky calcification of the aorta at the origin of the celiac and SMA. Lymph nodes: Unremarkable. No enlarged lymph nodes. Urinary bladder: Unremarkable as visualized. Reproductive: Unremarkable as visualized. Bones/joints: Right hip open reduction and internal fixation. Mild dextroconvex lumbar curvature. Mild lumbar spondylosis. Moderate S-shaped thoracic lumbar scoliosis. Chronic appearing L1 mild compression fracture. Soft tissues: Unremarkable. CT/CT abdomen pelvis w con* [id number] IMPRESSION: 1. Few right lower lobe infectious or inflammatory micro nodules. 2. Excess stool within the rectum with mild adjacent stranding, correlate for mild infectious or inflammatory colitis, or stercoral colitis. The absence of thickening of the remainder of the colon, and slightly thickened contractile small-bowel mitigates against Clostridium difficile infection, though not excluded, could be early or mild. Perhaps viral enterocolitis or toxin ingestion/food poisoning. 3. Occluded right proximal femoral artery and moderate right common femoral artery stenosis. 4. Chronic appearing L1 mild compression fracture. COMMENTS: Consistent with the [employer]'s Incidental Findings Committee white paper (J Am Antwon Radiol 2018): Any incidental renal lesion less than 1 cm or classified as too small to characterize, or any incidental cystic renal lesion characterized as simple-appearing, is likely benign. No follow-up imaging is recommended for these lesions per consensus recommendations based on imaging criteria. Radiation Dose CTDIVOL = (mGy): DLP = 634.37 (mGy-cm)
[2021-02-17 20:38] LABS: SARS Covid-2 Antigen Negative (Negative)
[2021-02-17 20:46] LABS: Urine Color Yellow (Yellow); pH Urine 5 (5-7)
[2021-02-17 20:47] LABS: Add Urine Microscopic? YES; Bilirubin Urine 1+ (Negative); Blood Urine Neg (Negative); Glucose Urine UA Norm (Normal); Ketones Urine Negative (Negative); Leukocyte Esterase Urine Negative (Negative); Nitrate Urine Negative (Negative); Protein Urine Neg (Negative); Specific Gravity, Urine 1.015 (1.005-1.030); Urobilinogen Urine Norm (Negative)
[2021-02-17 20:56] LABS: Add Urine Culture? No; Bacteria Urine 4+ /hpf; RBC Urine 0-4 /hpf (0-2); WBC Urine 0-4 /hpf (0-5)
[2021-02-17] MEDS: iodixanol 320 mg/mL 100mL Btl IV (21:34)
[2021-02-17] MEDS: HYDROmorphone 1 mg/mL INJ 1 mL 0.5 MG IVP (22:09)
[2021-02-17] MEDS: metroNIDAZOLE IV 500 MG/100 ML PREMIX 100 MG IV (22:15)
[2021-02-17 22:53] VITALS: BP 137/62; PULSE 84; RESP 18; O2SAT 97
--- NOTE | 2021-02-17 22:55 | P.HP_ITS ---
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 Patient stated this had been progressing for the past few days. This was associated with multiple episodes of loose watery diarrhea which actually had improve today. Denied fever, chills, nausea or vomiting. Also denied abdominal pain, chest pain or dyspnea. She laboratory workup on arrival showed a WBC of 15.1, hemoglobin of 10.1, hematocrit 32.2 and a platelet count of 335. INR 1.15. Sodium 139, potassium 4.4, chloride 103, bicarb 22, BUN 29 and creatinine of 1.0. Troponin T baseline 19. Lipase 21. Urinalysis was negative for leukocyte esterase or nitrates however 4+ bacteria was noted rapid COVID-[address] antigen was [address] Head CT showed ventricles appearing enlarged. CT abd/pelvis showed excess stool w/in rectum with mild adjacent stranding suspicious for colitis. Patient was given flagyl 500 mg IV x1 and IVF. Review of Systems General: Reports: 10 or more systems reviewed and unremarkable except in HPI and below Medications/Allergies Home Medications Medication Instructions Recorded Confirmed Last Taken Type furosemide 40 mg tablet 40 mg PO DAILY PRN 08/13/20 11/06/20 Unknown History mupirocin 2 % topical ointment 1 applic TOPICAL TID PRN 08/13/20 11/06/20 Unknown History naproxen 500 mg tablet 500 mg PO BID 08/13/20 11/06/20 Unknown History omeprazole 20 mg capsule,delayed 20 mg PO BID 08/13/20 11/06/20 Unknown History release pramipexole 0.125 mg tablet 0.125 mg PO QPM 08/13/20 11/06/20 Unknown History terbinafine HCl 1 % topical cream 1 applic TOPICAL BID PRN 08/13/20 11/06/20 Unknown History terbinafine HCl 250 mg tablet 250 mg PO DAILY 08/13/20 11/06/20 Unknown History tramadol 50 mg tablet 100 mg PO BID PRN 08/13/20 11/06/20 Unknown History Vitamin B-12 5,000 mcg SUBLINGUAL DAILY 09/29/20 11/06/20 Unknown History Vitamin D3 1 cap PO DAILY 09/29/20 11/06/20 Unknown History aspirin 81 mg PO QAM 09/29/20 11/06/20 Unknown History duloxetine 20 mg PO DAILY 09/29/20 11/06/20 Unknown History oxybutynin chloride 5 mg PO BEDTIME 09/29/20 11/06/20 Unknown History amlodipine 10 mg PO DAILY #30 tab 10/03/20 11/06/20 Unknown Rx ferrous fumarate-folic acid 1 tab PO QAM #60 tab 10/03/20 11/06/20 Unknown Rx levofloxacin 500 mg PO DAILY #1 tab 10/03/20 11/06/20 Unknown Rx amlodipine 5 mg PO DAILY #14 tab 01/29/21 Unknown Rx lisinopril 10 mg PO DAILY #14 tab 01/29/21 Unknown Rx magnesium citrate 150 ml PO BID PRN #296 ml 01/29/21 Unknown Rx polyethylene glycol 3350 [Miralax] 17 g PO DAILY #510 g 01/29/21 Unknown Rx Allergies Allergy/AdvReac Type Severity Reaction Status Date / Time cephalexin [From Keflex] Allergy Severe unknown Verified 11/06/20 10:22 zolpidem [From Ambien] Allergy Intermediate unknown Verified 11/06/20 10:22 PFSH Acute PFSH: Medical History COVID-19 vaccine administered Acumatica & Kadeem Fibromyalgia Hypertension Nicotine dependence, cigarettes, in remission Osteoarthritis Overactive bladder PAD (peripheral artery disease) RLS (restless legs syndrome) Urinary tract infection Surgical History History of hysterectomy History of neck surgery Postoperative state S/P femoral-popliteal bypass surgery Family History Other Heart disease Hypertension Stroke Denies family history of Anesthesia complication Bleeding disorder Social History Smoking and tobacco status: former smoker Quit status (tobacco): has quit using tobacco Former quit date comment: Quit smoking 1 month ago Alcohol intake: current Alcohol intake frequency: holidays/special occasions only Marital status: Vitals/I&O/Wt Last Vital Signs Temp 98.4 F 11/28/21 19:06 Pulse 89 02/17/21 20:00 Resp 22 H 02/17/21 20:00 BP 113/57 02/17/21 20:00 Pulse Ox 96 02/17/21 20:00 Weight last 48 hrs Weight 54.431 kg Physical Exam Narrative: EXAM NARRATIVE: General: Alert, Awake, Feeling weak HEENT : Grossly unremarkable CVS; Systolic murmur, RRR Chest : CTABL Abd: Soft,NT,ND Ext: No edema Neuro: CN-2-12 intact MS 5/ Urinary Catheter Management^: Bolton: Cath Placed During This Visit: yes Urinary Catheter Date of Insertion: 02/17/21 Urinary Catheter Time of Insertion: 20:30 Data : 02/17/21 19:25 02/17/21 19:25 Micro: Microbiology 02/17/21 20:10 Blood Culture - Preliminary Blood SPECIMEN COLLECTED 02/17/21 19:55 Blood Culture - Preliminary Blood SPECIMEN COLLECTED A&P Assessment and plan (1) Acute colitis: Status: Acute (2) Generalized weakness: Status: Acute Additional A&P Information Acute Colitis WBC - 15 CT abd/pelvis - excess stool with/in rectum with mild adjacent stranding Cipro 400 mg IV q12 hr Flagyl 500 mg IV q8hr Cardiac diet IVF at 75cc/hr Am labs F/u on C-diff ( low suspicion ) Generalized weakness CT head w/o contrast - Ventriculomegaly Possible due to above Consider NPH Fall precautions PT/OT consult GI ppx Pepcid 20 mg IV BID DVT ppx SCDS No pharm - unclear hx of bleeding Additional Medical Problems Coronary artery disease Hypertension Hyperlipidemia PAD hx of fem-pop bypass CKD stage 2-3 Attestations Medical Necessity Statement*: Anticipate less than 2 midnight stay in hospital for eval and treatment Time Spent in Patient Care: Greater than 35 minutes (>than 50% of time spent in counselling and/or direct pt care on unit) . 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
[2021-02-17 23:25] VITALS: BMI 17.7
[2021-02-17] MEDS: enoxaparin 40 mg/0.4 mL Syringe SUBCUT (23:46)
[2021-02-17] MEDS: HYDROcodone-acetaminophen 5-325 mg Tablet 1 TAB PO (23:46)
[2021-02-17] MEDS: famotidine 20 mg/2 mL INJ IVP (23:46)
[2021-02-18] VITALS: BP 151/67; PULSE 83; RESP 15; TEMP 36.9; O2SAT 95
[2021-02-18] MEDS: ciprofloxacin 400 MG/200 ML PREMIX 200 MG IV ×2 (00:51→16:47)
[2021-02-18 04:00] VITALS: BP 129/58; PULSE 101; RESP 16; TEMP 36.8; O2SAT 96
[2021-02-18] MEDS: sodium chloride 0.9% 1,000 ML 75 ML IV ×2 (05:46→20:27)
[2021-02-18] MEDS: metroNIDAZOLE IV 500 MG/100 ML PREMIX 100 MG IV ×2 (05:47→18:25)
--- NOTE | 2021-02-18 07:22 | PC.NURSE ---
2 areas of redness noted to left gluteal region 1-quarter sized, no drainage with pink surrounding tissue. Second area is dime sized with no drainage and pink surrounding tissue. Area cleansed thoroughly with NS, dried, and covaderm applied.
[2021-02-18 08:00] VITALS: BP 146/66; PULSE 90; RESP 16; TEMP 36.8; O2SAT 96
[2021-02-18 10:25] LABS: Basophils # 0.1 10^3/uL (0.0-0.1); Basophils % 0.9 %; Eosinophils # 0.1 10^3/uL (0.0-0.8); Eosinophils % 0.4 %; Hematocrit 24.9 % (37.0-47.0); Hemoglobin 7.7 g/dL (11.5-15.3); Lymphocytes # 2.1 10^3/uL (0.8-4.8); Lymphocytes % 17.6 %; Mean Corpuscular HGB Conc 30.9 g/dL (30.0-36.0); Mean Corpuscular Hemoglobin 28.4 pg (28.0-34.0); Mean Corpuscular Volume 91.9 fl (81-99); Monocytes # 0.8 10^3/uL (0.2-0.9); Monocytes % 6.5 %; Neutrophils # 8.61 10^3/uL (1.8-7.7); Neutrophils % 74.2 %; Nucleated Red Blood Cells % 0 %; Platelet Count 280 10^3/cmm (130-400); Red Blood Count 2.71 10^6/uL (4.1-5.3); Red Cell Distribution Width 14.9 % (12.1-15.1); White Blood Count 11.6 10^3/uL (4.0-10.0)
[2021-02-18 10:36] LABS: Alanine Aminotransferase < 5 U/L (0-33); Alkaline Phosphatase 67 IU/L (35-105); Anion Gap 14.5 (5-19); Aspartate Amino Transferase 9 U/L (0-32); Blood Urea Nitrogen 31 mg/dL (8-23); Calcium 8.6 mg/dL (8.5-10.5); Carbon Dioxide 22 mmol/L (22-29); Chloride 109 mmol/L (98-107); Globulin 1.5 g/dL (1.3-4.6); Glucose 89 mg/dL (65-115); Magnesium 1.5 mg/dL (1.7-2.3); Osmolality Calculated 298 mOsm/kg (285-295); Potassium 4.5 mmol/L (3.5-5.1); Sodium 141 mmol/L (136-145); Total Bilirubin 0.2 mg/dL (0.15-1.2); Total Protein 4.5 g/dL (6.6-8.7)
[2021-02-18 10:44] LABS: Procalcitonin 0.49 ng/mL (0-0.5)
[2021-02-18 12:00] VITALS: BP 95/57; PULSE 78; RESP 16; TEMP 36.5; O2SAT 97
[2021-02-18 12:01] LABS: Ferritin 68 ng/mL (15-150); Iron 51 ug/dL (37-145); Percent Saturation 33.5 % (20-50); Total Iron Binding Capacity 152 mcg/dl; Unsaturated Iron Binding 101 ug/dL (112-347); Vitamin B12 655 pg/mL (232-1245)
[2021-02-18 12:43] LABS: Folate Level 6.3 ng/mL (4.8-37.3)
--- NOTE | 2021-02-18 13:06 | PC.PHAR ---
pt brought in some medication bottles and pts toño also verified some medications
[2021-02-18 13:54] LABS: Hematocrit 26.5 % (37.0-47.0); Hemoglobin 8.3 g/dL (11.5-15.3)
--- NOTE | 2021-02-18 15:10 | PM.PN ---
Subjective Subjective: Interval history: Gabriella reports she feels better. She has had a bowel movement. Nurses report this is formed and not consistent with C. difficile. Patient denies any abdominal pain currently. History and physical reviewed. Patient's family report progressive weakness over the last week or so. She has not been able to ambulate on her own, always having some aid with a gait belt since her hip surgery earlier this year. They report she has some forgetfulness as well. Medications: Reviewed: Yes Vitals/I&O/Wt Last Vital Signs Temp 97.7 F 02/18/21 12:00 Pulse 78 02/18/21 12:00 Resp 16 02/18/21 12:00 BP 95/57 02/18/21 12:00 Pulse Ox 97 02/18/21 12:00 02/18/21 02/18/21 02/18/21 06:59 14:59 22:59 Intake Total 1400 / 1400 Output Total 150 / 150 Balance 1250 / 1250 Weight last 48 hrs Weight 42.666 kg Weight 54.431 kg Physical Exam Narrative: EXAM NARRATIVE: General exam no distress, mildly confused Neck is supple Cardiovascular regular rate and rhythm without murmur Lungs clear Abdomen is soft, positive bowel sounds Extremities no cyanosis clubbing or edema Urinary Catheter Management^: Bolton: Cath Placed During This Visit: yes Reason for Continuing Indwelling Catheter: Assist healing open wound Urinary Catheter Date of Insertion: 02/17/21 Urinary Catheter Time of Insertion: 20:30 Data : 02/18/21 13:38 02/18/21 09:57 Micro: Microbiology 02/17/21 20:10 Blood Culture - Preliminary Blood SPECIMEN COLLECTED 02/17/21 19:55 Blood Culture - Preliminary Blood SPECIMEN COLLECTED A&P Assessment and plan (1) Acute colitis: Flagyl and Cipro have been initiated Await C. difficile toxin, if she has liquid stool Status: Acute (2) Generalized weakness: Therapy consultations Status: Acute (3) Anemia: Anemia panel, stool Hemoccult Status: Acute (4) Hypomagnesemia: Supplement magnesium Status: Acute Additional A&P Information Enlarged ventricles on CT scan. This brings up possibility of normal pressure hydrocephalus. Will need outpatient neurology consultation. History of coronary artery disease. Not sure why she is not on statin. Peripheral vascular disease. Secondary to significant anemia hold aspirin. Not sure why she is not on statin. Hypertension. Borderline hypotension currently. Blood pressure on lower end currently. Hold any antihypertensives. Check cortisol level. SCDs for DVT prophylaxis Attestations Medical Necessity Statement*: Needs continued hospital stay for evaluation of severe weakness with potential need for rehabilitation as well as treatment of colitis with IV antibiotics. Coding Level of Care Code Acute Orthopedic Rn for [facility] Fwd Diagnoses Acute colitis K52.9 Generalized weakness R53.1 Anemia D64.9 Hypomagnesemia E83.42
[2021-02-18] MEDS: magnesium sulfate premix 2 GM/50 ML PIGGYBACK IV (15:21)
[2021-02-18 16:00] VITALS: BP 93/57; PULSE 118; RESP 16; TEMP 36.7; O2SAT 97
[2021-02-18] MEDS: pantoprazole DR 40 mg Tablet PO (18:26)
[2021-02-18 19:16] LABS: Glucose Point of Care 147 mg/dL (70-110)
[2021-02-18 20:00] VITALS: BP 82/53; PULSE 60; RESP 16; TEMP 36.4; O2SAT 94
[2021-02-19] VITALS (13 sets, daily range): BP systolic 100–160; BP diastolic 54–80; PULSE 88–110; RESP 16–22; TEMP 36.4–37.5; O2SAT 90–100
[2021-02-19] MEDS: metroNIDAZOLE IV 500 MG/100 ML PREMIX 100 MG IV ×3 (01:28→16:54)
[2021-02-19] MEDS: ciprofloxacin 400 MG/200 ML PREMIX 200 MG IV (03:21)
[2021-02-19 06:55] LABS: Basophils # 0.1 10^3/uL (0.0-0.1); Basophils % 0.5 %; Eosinophils % 0.1 %; Lymphocytes # 1.5 10^3/uL (0.8-4.8); Lymphocytes % 13.8 %; Mean Corpuscular HGB Conc 31.7 g/dL (30.0-36.0); Mean Corpuscular Hemoglobin 28.3 pg (28.0-34.0); Mean Corpuscular Volume 89.4 fl (81-99); Mean Platelet Volume 11.4 fL (7.4-10.4); Monocytes # 1.1 10^3/uL (0.2-0.9); Monocytes % 10.1 %; Neutrophils # 8.15 10^3/uL (1.8-7.7); Neutrophils % 74.7 %; Nucleated Red Blood Cells % 0.2 %; Platelet Count 247 10^3/cmm (130-400); Red Cell Distribution Width 14.9 % (12.1-15.1); White Blood Count 10.9 10^3/uL (4.0-10.0)
[2021-02-19 07:29] LABS: Alanine Aminotransferase 6 U/L (0-33); Albumin Level 2.7 g/dL (3.5-5.2); Alkaline Phosphatase 60 IU/L (35-105); Blood Urea Nitrogen 42 mg/dL (8-23); Calcium 8.5 mg/dL (8.5-10.5); Carbon Dioxide 21 mmol/L (22-29); Chloride 112 mmol/L (98-107); Globulin 1.4 g/dL (1.3-4.6); Glucose 92 mg/dL (65-115); Magnesium 2.2 mg/dL (1.7-2.3); Osmolality Calculated 302 mOsm/kg (285-295); Sodium 141 mmol/L (136-145); Total Bilirubin 0.2 mg/dL (0.15-1.2); Total Protein 4.1 g/dL (6.6-8.7)
[2021-02-19 07:30] LABS: Anion Gap 12.7 (5-19); Aspartate Amino Transferase 25 U/L (0-32); Potassium 4.7 mmol/L (3.5-5.1)
[2021-02-19 07:37] LABS: Hematocrit 16.1 % (37.0-47.0); Hemoglobin 5.1 g/dL (11.5-15.3)
--- NOTE | 2021-02-19 08:10 | PM.PN ---
Subjective Subjective: Interval history: Gabriella sleepy this morning. Nurse alerted me she was quite confused last night. She did have a small stool last night, that appeared dark consistent with blood. Patient denies any pain this morning but is confused. Medications: Reviewed: Yes Vitals/I&O/Wt Last Vital Signs Temp 97.9 F 02/19/21 04:00 Pulse 90 02/19/21 04:00 Resp 16 02/19/21 04:00 BP 100/66 02/19/21 04:00 Pulse Ox 90 02/19/21 04:00 02/18/21 02/19/21 02/19/21 22:59 06:59 14:59 Intake Total 1350 / 1350 300 / 1650 Output Total 0 / 0 450 / 450 Balance 1350 / 1350 -150 / 1200 Weight last 48 hrs Weight 42.666 kg Weight 54.431 kg Physical Exam Narrative: EXAM NARRATIVE: General exam no distress, confused and sleepy Neck is supple Cardiovascular regular rate and rhythm without murmur Lungs clear Abdomen is soft, positive bowel sounds Extremities no cyanosis clubbing or edema Urinary Catheter Management^: Bolton: Cath Placed During This Visit: yes Reason for Continuing Indwelling Catheter: Acute Urinary Retention or Obstruction Urinary Catheter Date of Insertion: 02/17/21 Urinary Catheter Time of Insertion: 20:30 Data : 02/19/21 06:05 02/19/21 06:05 Micro: Microbiology 02/17/21 20:10 Blood Culture - Preliminary Blood NEGATIVE TO DATE 02/17/21 19:55 Blood Culture - Preliminary Blood NEGATIVE TO DATE A&P Assessment and plan (1) Acute colitis: Flagyl and Cipro have been initiated Await C. difficile toxin, if she has liquid stool Status: Acute (2) Generalized weakness: Therapy consultations Secondary to severity of weakness may require assisted facility placement. Status: Acute (3) Anemia: She is not iron deficient, which may increase the likelihood that this is acute blood loss anemia that has occurred, perhaps superimposed on chronic process Stool Hemoccult is pending May require endoscopy for evaluation. Once Hemoccult is back I will discuss with family this possibility. For now change Protonix to IV. Make n.p.o. Transfuse 1 unit of packed red blood cells and hemoglobin to follow 1 hour after transfusion. Holding all antiplatelets and anticoagulation Status: Acute (4) Hypomagnesemia: Supplemented 02/18. Now normal Status: Acute Additional A&P Information Enlarged ventricles on CT scan. This brings up possibility of normal pressure hydrocephalus. Will need outpatient neurology consultation. History of coronary artery disease. Not sure why she is not on statin. Peripheral vascular disease. Secondary to significant anemia hold aspirin. Not sure why she is not on statin. Hypertension. Borderline hypotension currently. Blood pressure on lower end currently. Hold any antihypertensives. Check cortisol level. 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
[2021-02-19] MEDS: pantoprazole 40 mg SDV IVP (08:38)
[2021-02-19] MEDS: duloxetine 20 mg Capsule PO (08:39)
[2021-02-19] MEDS: acetaminophen 325 mg Tablet 650 MG PO ×2 (08:47→22:13)
--- NOTE | 2021-02-19 10:40 | PM.CONSULT ---
Providers/Reason For Consult Consulting Physician/Specialty*: Andrzej Meehan MD Reason for Consult*: GI bleed Requesting Physician: Dr. 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 Patient stated this had been progressing for the past few days. Patient was admitted to the hospitalist service. And in the ER work-up was done that showed; Head CT showed ventricles appearing enlarged. CT abd/pelvis showed excess stool w/in rectum with mild adjacent stranding suspicious for colitis. history of MRI with subacute to acute compression fracture L1 and nondisplaced sacral fracture 02/12/2021. This may contribute to her discomfort with movement, difficulty with ambulation, and need for rehabilitation. Patient apparently had a small stool and looked to be dark consistent with blood, patient denies any abdominal pain Patient is significantly anemic with 5.1 g and hematocrit of 16.1. Platelet count 247. General surgery was consulted for further evaluation for potential EGD Review of Systems General: Reports: ROS unobtainable due to medical condition Meds/Allergies Home Medications and Allergies Home Medications Medication Instructions Recorded Confirmed Last Taken Type furosemide 40 mg tablet 40 mg PO DAILY PRN 08/13/20 02/18/21 Unknown History mupirocin 2 % topical ointment 1 applic TOPICAL TID PRN 08/13/20 02/18/21 Unknown History naproxen 500 mg tablet 500 mg PO BID 08/13/20 02/18/21 Unknown History omeprazole 20 mg capsule,delayed 20 mg PO BID PRN 08/13/20 02/18/21 Unknown History release pramipexole 0.125 mg tablet 0.125 mg PO QPM 08/13/20 02/18/21 Unknown History terbinafine HCl 1 % topical cream 1 applic TOPICAL BID PRN 08/13/20 02/18/21 Unknown History tramadol 50 mg tablet 100 mg PO BID PRN 08/13/20 02/18/21 Unknown History aspirin 81 mg PO QAM 09/29/20 02/18/21 Unknown History duloxetine 20 mg PO DAILY 09/29/20 02/18/21 Unknown History oxybutynin chloride 5 mg PO BEDTIME 09/29/20 02/18/21 Unknown History magnesium citrate 150 ml PO BID PRN #296 ml 01/29/21 02/18/21 Unknown Rx amlodipine 5 mg PO DAILY 02/18/21 02/18/21 Unknown History cholecalciferol (vitamin D3) 125 mcg PO DAILY 02/18/21 02/18/21 Unknown History [Vitamin D3] docusate sodium [Stool Softener] 200 mg PO DAILY 02/18/21 02/18/21 Unknown History lisinopril 10 mg PO DAILY 02/18/21 02/18/21 Unknown History polyethylene glycol 3350 [Miralax] 17 g PO DAILY PRN 02/18/21 02/18/21 Unknown History Allergies Allergy/AdvReac Type Severity Reaction Status Date / Time cephalexin [From Keflex] Allergy Severe unknown Verified 02/19/21 11:05 zolpidem [From Ambien] Allergy Intermediate unknown Verified 02/19/21 11:05 Current Medications Current Medications Generic Name Dose Route Start Last Admin Trade Name Freq PRN Reason Stop Dose Admin Acetaminophen 650 mg 02/17/21 22:52 02/19/21 08:47 Acetaminophen 325 Mg Tablet PO 650 mg Q6H PRN Administration Mild/Mod Pain Or Temp >/= 101 Hydrocodone Bitart/Acetaminophen 1 tab 02/17/21 22:52 02/17/21 23:46 Hydrocodone-Acetaminophen 5-325 Mg Tablet PO 1 tab Q4H PRN Administration MODERATE TO SEVERE PAIN Duloxetine HCl 20 mg 02/19/21 09:00 02/19/21 08:39 Duloxetine 20 Mg Capsule PO 20 mg DAILY JOI Administration Ciprofloxacin/Dextrose 400 mg in 200 mls @ 200 mls/hr 02/18/21 00:15 02/19/21 05:10 Cipro IV Infused Q12H JOI Infusion Protocol Metronidazole 500 mg in 100 mls @ 100 mls/hr 02/18/21 06:00 02/19/21 08:39 Flagyl Iv IV 100 mls/hr Q8H JOI Administration Protocol Sodium Chloride 1,000 mls @ 75 mls/hr 02/18/21 05:15 02/18/21 20:27 Sodium Chloride 0.9% IV 75 mls/hr .[id number] JOI Administration Pantoprazole Sodium 40 mg 02/19/21 08:00 02/19/21 08:38 Pantoprazole 40 Mg Sdv IVP 40 mg Q12H JOI Administration PFSH Acute PFSH: Medical History COVID-19 vaccine administered Kadeem & Kadeem Fibromyalgia Hypertension Nicotine dependence, cigarettes, in remission Osteoarthritis Overactive bladder PAD (peripheral artery disease) RLS (restless legs syndrome) Urinary tract infection Surgical History History of hysterectomy History of neck surgery Postoperative state S/P femoral-popliteal bypass surgery Family History Other Heart disease Hypertension Stroke Denies family history of Anesthesia complication Bleeding disorder Social History Smoking and tobacco status: former smoker Quit status (tobacco): has quit using tobacco Former quit date comment: Quit smoking 1 month ago Alcohol intake: current Alcohol intake frequency: holidays/special occasions only Marital status: Vitals/I&O/Wt Last Vital Signs Temp 99.5 F 02/19/21 08:00 Pulse 105 H 02/19/21 08:00 Resp 18 02/19/21 08:00 BP 116/57 02/19/21 08:00 Pulse Ox 90 02/19/21 08:00 02/18/21 02/19/21 02/19/21 22:59 06:59 14:59 Intake Total 1350 / 1350 300 / 1650 Output Total 0 / 0 450 / 450 Balance 1350 / 1350 -150 / 1200 Weight last 48 hrs Weight 94 lb 1 oz Weight 120 lb Physical Exam Narrative: EXAM NARRATIVE: Patient is conscious alert but disoriented BMI 18 Head and neck examination PERRLA no masses no cervical lymphadenopathy no jaundice Cardiac examination audible S1-S2 no murmurs no gallops no arrhythmias Chest is clear bilateral,abscence of Rhonchi or wheezes,no surgical emphysema Abdomen nontender nondistended soft no organomegaly guarding or rigidity/no signs of peritonitis Bolton catheter in place Urinary Catheter Management^: Bolton: Cath Placed During This Visit: yes Reason for Continuing Indwelling Catheter: Acute Urinary Retention or Obstruction Urinary Catheter Date of Insertion: 02/17/21 Urinary Catheter Time of Insertion: 20:30 Data Micro: Micro: Microbiology 02/19/21 01:30 Occult Blood (FIT) - Final Stool - Stool Asp irate 02/17/21 20:10 Blood Culture - Pr eliminary Blood NEGATIVE TO SOREN E 02/17/21 19:55 Blood Culture - Pr eliminary Blood NEGATIVE TO SOREN E A&P Assessment and plan (1) Dark stools: Plan of care; After thorough history and physical examination and reviewing the chart, plan to perform a diagnostic esophagogastroduodenoscopy with possible biopsy in the GI lab. I discussed with the patient's Spouse Mr Hidalgo in detail the risk,benefits,alternatives and indications.The risk of aspiration, bleeding, soft tissue injury, perforation of the stomach/esophagus and other potential concomitant complications were explained to the patient's spouse in details,aslo the potential need for Thoracic and or Abdominal surgery to repair any complications.The patient's spouse understood this well and did agree to proceed. Rationale was carefully and clearly discussed with the patient's spouse.Appropriate informed consent have been reviewed and signed All questions have been answered and all concerns have been addressed to patient's spouse satisfaction. Status: Acute Consult Attestations Medical Necessity Statement: Per admitting service Time Spent in Patient Care: (>than 50% of time spent in counselling and/or direct pt care on unit). 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
--- NOTE | 2021-02-19 10:58 | PC.NURSE ---
Spoke with Dr. Meehan and he states he will be taking patient for EGD this afternoon, however d/t patient's confusion, it would be best to obtain consent from patient's family. I provided patient's 's number for him and he states that he will call prior to procedure and have nurse witness in GI lab. I verbalized understanding and stated that we would put the consent on the front of the chart to obtain immediately prior to procedure.
--- NOTE | 2021-02-19 11:25 | PC.OT ---
PATIENT CURRENTLY OFF OF FLOOR TO GI LAB. WILL ATTEMPT AGAIN IN P.M.
[2021-02-19] MEDS: sodium chloride 0.9% 1,000 ML 30 ML IV (11:30)
--- NOTE | 2021-02-19 11:48 | SUR.PREOP ---
Addendum entered by Jennifer Lizarraga RN 02/19/21 11:51: Nursing note entered by Estelle Baca RN, not TYLER Rodriguez. Original Note: Obtained consent for EGD and anesthesia from (Erich Hidalgo) via telephone with 2 nurses verification. Education provided and verbalized understanding. Patient remains confused but pleasant. IV C/D/I to L AC with NS KVO. VSS. Will monitor.
--- NOTE | 2021-02-19 11:52 | ANES.PREANE2 ---
Pre-Anesthetic Assessment Pre-Anesthetic Assessment: Height/Weight: Height 1.55 m Weight 42.666 kg Temp Pulse Resp BP Pulse Ox 99.5 F 105 H 18 116/57 90 02/19/21 08:00 02/19/21 08:00 02/19/21 08:00 02/19/21 08:00 02/19/21 08:00 Preop Diagnosis: Bloody stool Proposed Procedure: Operation Date: 02/19/21 11:30 Proposed Procedures p EGD(Not Applicable) - Andrzej Meehan MD Was Beta Arnulfo taken within 24 hours: N/A Was Clonidine taken within 24 hours: N/A Last intake: Intake Last Liquid Date 02/18/21 Last Liquid Time 08:00 Last Solid Date 02/18/21 Last Solid Time 08:00 Social: Social History: Tobacco and No alcohol Exam: Pre-Anes Outpt Exam: alert (disoriented to place, time and situation) Airway: Submandibular: WNL Cervical ROM: Other (limited) MP: 2 Dentition: False Pulmonary: Pulmonary: COPD, GREENE and SOB CV/HEM: CV/HEM: Afib, CAD, CHF and HTN : : None reported Hepatic: Hepatic: None reported GI: GI: GERD Metabolic: Metabolic: None reported Musc/skel: Musc/skel: OA/DJD Neuropsych: Neuropsych: Dementia Anesthetic Plan: ASA status: 4E Anesthesia: MAC Meds/Allergies Current Medications: Current Medications Generic Name Dose Route Start Last Admin Trade Name Freq PRN Reason Stop Dose Admin Acetaminophen 650 mg 02/17/21 22:52 02/19/21 08:47 Acetaminophen 32 5 Mg Tablet PO 650 mg Q6H PRN Administration Mild/Mod Pain Or Temp >/= 101 Hydrocodone Bitart /Acetaminophen 1 tab 02/17/21 22:52 02/17/21 23:46 Hydrocodone-Acet aminophen 5-325 Mg Tablet PO 1 tab Q4H PRN Administration MODERATE TO SEVER E PAIN Duloxetine HCl 20 mg 02/19/21 09:00 02/19/21 08:39 Duloxetine 20 Mg Capsule PO 20 mg DAILY JOI Administration Ciprofloxacin/Dext angelina 400 mg in 200 mls @ 200 mls/hr 02/18/21 00:15 02/19/21 05:10 Cipro IV Infused Q12H JIO Infusion Protocol Metronidazole 500 mg in 100 mls @ 100 mls/hr 02/18/21 06:00 02/19/21 08:39 Flagyl Iv IV 100 mls/hr Q8H JOI Administration Protocol Sodium Chloride 1,000 mls @ 75 ml s/hr 02/18/21 05:15 02/18/21 20:27 Sodium Chloride 0.9% IV 75 mls/hr .[id number] JOI Administration Pantoprazole Sodiu m 40 mg 02/19/21 08:00 02/19/21 08:38 Pantoprazole 40 Mg Sdv IVP 40 mg Q12H JOI Administration PFSH Anesthesia PFSH: Medical History COVID-19 vaccine administered [employer] Fibromyalgia Hypertension Nicotine dependence, cigarettes, in remission Osteoarthritis Overactive bladder PAD (peripheral artery disease) RLS (restless legs syndrome) Urinary tract infection Surgical History History of hysterectomy History of neck surgery Postoperative state S/P femoral-popliteal bypass surgery Family History Other Heart disease Hypertension Stroke Denies family history of Anesthesia complication Bleeding disorder Social History Smoking and tobacco status: former smoker Quit status (tobacco): has quit using tobacco Former quit date comment: Quit smoking 1 month ago Alcohol intake: current Alcohol intake frequency: holidays/special occasions only Marital status: Data Anesthesia CBC & Chem 7: 02/19/21 06:05 02/19/21 06:05 Other Labs: Laboratory Results - last 48 hr 02/17/21 02/17/21 02/17/21 19:25 19:25 19:25 WBC 15.1 H RBC 3.56 L Hgb 10.1 L Hct 32.2 L MCV 90.4 MCH 28.4 MCHC 31.4 RDW 14.6 Plt Count 335 MPV 10.2 Neut % (Auto) 82.3 Lymph % (Auto) 9.8 [place] % (Auto) 5.8 Eos % (Auto) 0.7 Baso % (Auto) 0.5 Neut # (Auto) 12.41 H Lymph # (Auto) 1.5 [place] # (Auto) 0.9 Eos # (Auto) 0.1 Baso # (Auto) 0.1 Nucleated RBC % (auto) 0 Nucleated RBCs # 0.0 PT 15.00 H INR 1.15 APTT 25.2 Sodium 139 Potassium 4.4 Chloride 103 Carbon Dioxide 22 Anion Gap 18.4 BUN 29 H Creatinine 1.0 H GFR Calculation Not Reportable Glucose 136 H POC Glucose Calculated Osmolality 296 H Lactate Calcium 9.5 Magnesium Iron TIBC % Saturation Unsat Iron Binding Ferritin Total Bilirubin 0.2 AST 10 ALT < 5 Alkaline Phosphatase 80 Troponin T Gen 5 ng/L Total Protein 5.3 L Albumin 3.5 Globulin 1.8 Lipase 21 Vitamin B12 Folate Procalcitonin Urine Color Urine Appearance Urine pH Ur Specific [place] Urine Protein Urine Glucose (UA) Urine Ketones Urine Blood Urine Nitrate Urine Bilirubin Urine Urobilinogen Ur Leukocyte Esterase Urine RBC Urine WBC Ur Squamous Epith Cells Amorphous Sediment Urine Bacteria SARS-CoV-2 Ag (Rapid) Blood Type Rho(D) Type Antibody Screen Crossmatch 02/17/21 02/17/21 02/17/21 19:25 19:25 20:00 WBC RBC Hgb Hct MCV MCH MCHC RDW Plt Count MPV Neut % (Auto) Lymph % (Auto) [place] % (Auto) Eos % (Auto) Baso % (Auto) Neut # (Auto) Lymph # (Auto) [place] # (Auto) Eos # (Auto) Baso # (Auto) Nucleated RBC % (auto) Nucleated RBCs # PT INR APTT Sodium Potassium Chloride Carbon Dioxide Anion Gap BUN Creatinine GFR Calculation Glucose POC Glucose Calculated Osmolality Lactate 2.1 Calcium Magnesium Iron TIBC % Saturation Unsat Iron Binding Ferritin Total Bilirubin AST ALT Alkaline Phosphatase Troponin T Gen 5 ng/L 19 H Total Protein Albumin Globulin Lipase Vitamin B12 Folate Procalcitonin Urine Color Urine Appearance Urine pH Ur Specific [place] Urine Protein Urine Glucose (UA) Urine Ketones Urine Blood Urine Nitrate Urine Bilirubin Urine Urobilinogen Ur Leukocyte Esterase Urine RBC Urine WBC Ur Squamous Epith Cells Amorphous Sediment Urine Bacteria SARS-CoV-2 Ag (Rapid) Negative Blood Type Rho(D) Type Antibody Screen Crossmatch 02/17/21 02/18/21 02/18/21 20:30 09:57 09:57 WBC 11.6 H RBC 2.71 L Hgb 7.7 L Hct 24.9 L MCV 91.9 MCH 28.4 MCHC 30.9 RDW 14.9 Plt Count 280 MPV 10.0 Neut % (Auto) 74.2 Lymph % (Auto) 17.6 [place] % (Auto) 6.5 Eos % (Auto) 0.4 Baso % (Auto) 0.9 Neut # (Auto) 8.61 H Lymph # (Auto) 2.1 [place] # (Auto) 0.8 Eos # (Auto) 0.1 Baso # (Auto) 0.1 Nucleated RBC % (auto) 0 Nucleated RBCs # 0.0 PT INR APTT Sodium 141 Potassium 4.5 Chloride 109 H Carbon Dioxide 22 Anion Gap 14.5 BUN 31 H Creatinine 1.0 H GFR Calculation Not Reportable Glucose 89 POC Glucose Calculated Osmolality 298 H Lactate Calcium 8.6 Magnesium 1.5 L Iron TIBC % Saturation Unsat Iron Binding Ferritin Total Bilirubin 0.2 AST 9 ALT < 5 Alkaline Phosphatase 67 Troponin T Gen 5 ng/L Total Protein 4.5 L Albumin 3.0 L Globulin 1.5 Lipase Vitamin B12 Folate Procalcitonin Urine Color Yellow Urine Appearance Sl cloudy A Urine pH 5 Ur Specific [place] 1.015 Urine Protein Neg Urine Glucose (UA) Norm Urine Ketones Negative Urine Blood Neg Urine Nitrate Negative Urine Bilirubin 1+ H Urine Urobilinogen Norm Ur Leukocyte Esterase Negative Urine RBC 0-4 H Urine WBC 0-4 H Ur Squamous Epith Cells 5-10 H Amorphous Sediment Not Reportable Urine Bacteria 4+ H SARS-CoV-2 Ag (Rapid) Blood Type Rho(D) Type Antibody Screen Crossmatch 02/18/21 02/18/21 02/18/21 09:57 09:57 09:57 WBC RBC Hgb Hct MCV MCH MCHC RDW Plt Count MPV Neut % (Auto) Lymph % (Auto) [place] % (Auto) Eos % (Auto) Baso % (Auto) Neut # (Auto) Lymph # (Auto) [place] # (Auto) Eos # (Auto) Baso # (Auto) Nucleated RBC % (auto) Nucleated RBCs # PT INR APTT Sodium Potassium Chloride Carbon Dioxide Anion Gap BUN Creatinine GFR Calculation Glucose POC Glucose Calculated Osmolality Lactate Calcium Magnesium Iron 51 TIBC 152 % Saturation 33.5 Unsat Iron Binding 101 L Ferritin 68 Total Bilirubin AST ALT Alkaline Phosphatase Troponin T Gen 5 ng/L Total Protein Albumin Globulin Lipase Vitamin B12 655 Folate 6.3 Procalcitonin 0.49 Urine Color Urine Appearance Urine pH Ur Specific [place] Urine Protein Urine Glucose (UA) Urine Ketones Urine Blood Urine Nitrate Urine Bilirubin Urine Urobilinogen Ur Leukocyte Esterase Urine RBC Urine WBC Ur Squamous Epith Cells Amorphous Sediment Urine Bacteria SARS-CoV-2 Ag (Rapid) Blood Type Rho(D) Type Antibody Screen Crossmatch 02/18/21 02/18/21 02/19/21 13:38 18:37 06:05 WBC 10.9 H RBC 1.80 L Hgb 8.3 L 5.1 L* D Hct 26.5 L 16.1 L* D MCV 89.4 MCH 28.3 MCHC 31.7 RDW 14.9 Plt Count 247 MPV 11.4 H Neut % (Auto) 74.7 Lymph % (Auto) 13.8 [place] % (Auto) 10.1 Eos % (Auto) 0.1 Baso % (Auto) 0.5 Neut # (Auto) 8.15 H Lymph # (Auto) 1.5 [place] # (Auto) 1.1 H Eos # (Auto) 0.0 Baso # (Auto) 0.1 Nucleated RBC % (auto) 0.2 Nucleated RBCs # 0.0 PT INR APTT Sodium Potassium Chloride Carbon Dioxide Anion Gap BUN Creatinine GFR Calculation Glucose POC Glucose 147 H Calculated Osmolality Lactate Calcium Magnesium Iron TIBC % Saturation Unsat Iron Binding Ferritin Total Bilirubin AST ALT Alkaline Phosphatase Troponin T Gen 5 ng/L Total Protein Albumin Globulin Lipase Vitamin B12 Folate Procalcitonin Urine Color Urine Appearance Urine pH Ur Specific [place] Urine Protein Urine Glucose (UA) Urine Ketones Urine Blood Urine Nitrate Urine Bilirubin Urine Urobilinogen Ur Leukocyte Esterase Urine RBC Urine WBC Ur Squamous Epith Cells Amorphous Sediment Urine Bacteria SARS-CoV-2 Ag (Rapid) Blood Type Rho(D) Type Antibody Screen Crossmatch 02/19/21 02/19/21 06:05 09:12 WBC RBC Hgb Hct MCV MCH MCHC RDW Plt Count MPV Neut % (Auto) Lymph % (Auto) [place] % (Auto) Eos % (Auto) Baso % (Auto) Neut # (Auto) Lymph # (Auto) [place] # (Auto) Eos # (Auto) Baso # (Auto) Nucleated RBC % (auto) Nucleated RBCs # PT INR APTT Sodium 141 Potassium 4.7 Chloride 112 H Carbon Dioxide 21 L Anion Gap 12.7 BUN 42 H Creatinine 1.1 H GFR Calculation Not Reportable Glucose 92 POC Glucose Calculated Osmolality 302 H Lactate Calcium 8.5 Magnesium 2.2 Iron TIBC % Saturation Unsat Iron Binding Ferritin Total Bilirubin 0.2 AST 25 ALT 6 Alkaline Phosphatase 60 Troponin T Gen 5 ng/L Total Protein 4.1 L Albumin 2.7 L Globulin 1.4 Lipase Vitamin B12 Folate Procalcitonin Urine Color Urine Appearance Urine pH Ur Specific [place] Urine Protein Urine Glucose (UA) Urine Ketones Urine Blood Urine Nitrate Urine Bilirubin Urine Urobilinogen Ur Leukocyte Esterase Urine RBC Urine WBC Ur Squamous Epith Cells Amorphous Sediment Urine Bacteria SARS-CoV-2 Ag (Rapid) Blood Type O Positive Rho(D) Type Positive Antibody Screen Negative Crossmatch See Detail Micro: Microbiology 02/19/21 01:30 Occult Blood (FIT) - Final Stool - Stool Aspirate 02/17/21 20:10 Blood Culture - Preliminary Blood NEGATIVE TO DATE 02/17/21 19:55 Blood Culture - Preliminary Blood NEGATIVE TO DATE Cardiac Studies: No Data to Display
--- NOTE | 2021-02-19 12:37 | PC.NURSE ---
Spoke with Dr Plasencia about 1 degree increase in temp during first 15 mins of blood transfusion. Dr discussed other vitals and nurse instructed to continue transfusion since no complications present. Will monitor.
--- NOTE | 2021-02-19 15:06 | ANE.PACU2 ---
Inpatient post-anesthesia follow up: Airway intact: Yes Vital signs: Temperature 98.2 F Pulse Rate 105 Respiratory Rate 16 Blood Pressure 135/62 Pulse Oximetry 98 Oxygen Delivery Me thod Nasal Cannula Oxygen Flow Rate Fraction of Inspir ed Oxygen Hydration adequate: No Nausea and vomiting: No Pain level: 1 Mental status: Baseline
--- NOTE | 2021-02-19 18:31 | PC.NURSE ---
PATIENT HAS DONE WELL TODAY. TOLERATED EGD AND 1 UNIT OF BLOOD. UP WITH ONE PERSON ASSIST TO THE BEDSIDE COMMODE. 2 LIQUID STOOLS TODAY, TARRY IN COLOR. 600ML OF URINE OUTPUT. C-DIFF POSITIVE. FAMILY NOTIFIED. TOLERATING CLEAR LIQUIDS AT THIS TIME.
[2021-02-19 18:32] LABS: Hematocrit 22.7 % (37.0-47.0)
[2021-02-19 18:33] LABS: Hemoglobin 7.2 g/dL (11.5-15.3)
[2021-02-20] VITALS (13 sets, daily range): BP systolic 101–173; BP diastolic 55–73; PULSE 71–96; RESP 16–26; TEMP 36.4–37.4; O2SAT 90–98
[2021-02-20] MEDS: metroNIDAZOLE IV 500 MG/100 ML PREMIX 100 MG IV ×3 (01:40→17:56)
[2021-02-20] MEDS: sodium chloride 0.9% 1,000 ML 75 ML IV ×2 (01:41→08:07)
[2021-02-20] MEDS: duloxetine 20 mg Capsule PO (08:05)
[2021-02-20] MEDS: pantoprazole 40 mg SDV IVP (08:05)
[2021-02-20] MEDS: sodium chloride 0.9% (100 ml) 100 ML 125 ML (08:06)
[2021-02-20 09:08] LABS: Basophils # 0.1 10^3/uL (0.0-0.1); Basophils % 0.6 %; Eosinophils % 0.2 %; Hemoglobin 9.5 g/dL (11.5-15.3); Lymphocytes # 1.6 10^3/uL (0.8-4.8); Lymphocytes % 12.7 %; Mean Corpuscular HGB Conc 32.8 g/dL (30.0-36.0); Mean Corpuscular Hemoglobin 29.4 pg (28.0-34.0); Mean Corpuscular Volume 89.8 fl (81-99); Monocytes # 1.2 10^3/uL (0.2-0.9); Monocytes % 9.5 %; Neutrophils # 9.44 10^3/uL (1.8-7.7); Neutrophils % 75.7 %; Nucleated Red Blood Cells # 0.1 /100WBC; Platelet Count 206 10^3/cmm (130-400); Red Blood Count 3.23 10^6/uL (4.1-5.3); Red Cell Distribution Width 14.8 % (12.1-15.1); White Blood Count 12.5 10^3/uL (4.0-10.0)
[2021-02-20 09:41] LABS: Alanine Aminotransferase 10 U/L (0-33); Albumin Level 2.7 g/dL (3.5-5.2); Alkaline Phosphatase 59 IU/L (35-105); Anion Gap 12.4 (5-19); Aspartate Amino Transferase 46 U/L (0-32); Blood Urea Nitrogen 22 mg/dL (8-23); Calcium 8.2 mg/dL (8.5-10.5); Carbon Dioxide 18 mmol/L (22-29); Chloride 114 mmol/L (98-107); Globulin 1.8 g/dL (1.3-4.6); Glucose 102 mg/dL (65-115); Magnesium 1.7 mg/dL (1.7-2.3); Osmolality Calculated 296 mOsm/kg (285-295); Potassium 3.4 mmol/L (3.5-5.1); Sodium 141 mmol/L (136-145); Total Bilirubin 0.8 mg/dL (0.15-1.2); Total Protein 4.5 g/dL (6.6-8.7)
--- NOTE | 2021-02-20 11:54 | PC.OT ---
OT TREATMENT ATTEMPTED. PATIENT MINIMALLY RESPONSIVE; DOES NOT OPEN EYES AND MUMBLES BUT DOES NOT VERBALIZE. STATES NO WHEN ASKED IF IN PAIN. ATTEMPTED TO TAKE O2 SATURATION BUT WILL NOT READ ON PULSE OX. CHARGE NURSE INFORMED THE PATIENT'S NURSE IS ASSISTING ANOTHER PATIENT AT THIS TIME. TREATMENT WILL BE ATTEMPTED AGAIN IN P.M.
--- NOTE | 2021-02-20 12:02 | P.PN_ITS ---
Subjective Subjective: Interval history: Gabriella was interactive this morning. Denied any abdominal pain. Medications: Reviewed: Yes Vitals/I&O/Wt Last Vital Signs Temp 98.1 F 02/20/21 08:02 Pulse 96 02/20/21 08:02 Resp 16 02/20/21 08:02 BP 164/66 02/20/21 08:00 Pulse Ox 97 02/20/21 08:02 02/19/21 02/20/21 02/20/21 22:59 06:59 14:59 Intake Total 1144 / 1944 200 / 2144 682.5 / 682.5 Output Total 800 / 800 1100 / 1900 600 / 600 Balance 344 / 1144 -900 / 244 82.5 / 82.5 Physical Exam Narrative: EXAM NARRATIVE: General exam no distress, more alert and interactive Neck is supple Cardiovascular regular rate and rhythm without murmur Lungs clear Abdomen is soft, positive bowel sounds Extremities no cyanosis clubbing or edema Urinary Catheter Management^: [place]: Cath Placed During This Visit: yes Reason for Continuing Indwelling Catheter: Acute Urinary Retention or Obstruction Urinary Catheter Date of Insertion: 02/17/21 Urinary Catheter Time of Insertion: 20:30 Data : 02/20/21 08:58 02/20/21 08:58 Micro: Microbiology 02/19/21 01:30 C.difficile Toxin B Gene (PCR) - Final Stool - Stool Aspirate 02/19/21 01:30 Occult Blood (FIT) - Final Stool - Stool Aspirate A&P Assessment and plan (1) Acute colitis: C. difficile came back positive yesterday. Flagyl was continued, vancomycin p.o. added Associated with some dark stools. EGD performed 02/19 demonstrated gastritis but no active bleeding. Status: Acute (2) Generalized weakness: Therapy consultations Secondary to severity of weakness may require long term facility placement. Status: Acute (3) Anemia: She is not iron deficient, which may increase the likelihood that this is acute blood loss anemia that has occurred, perhaps superimposed on chronic process Stool Hemoccult was positive Endoscopy demonstrated gastritis, but no active bleeding Transition Protonix to p.o. She has required 1 unit of packed red blood cells during the hospitalization for symptomatic anemia Holding all antiplatelets and anticoagulation Status: Acute (4) Hypomagnesemia: Supplemented 02/18. Now normal Status: Acute Additional A&P Information Enlarged ventricles on CT scan. This brings up possibility of normal pressure hydrocephalus. Will need outpatient neurology consultation. History of coronary artery disease. Not sure why she is not on statin. Peripheral vascular disease. Secondary to significant anemia hold aspirin. Not sure why she is not on statin. Hypertension. Borderline hypotension currently. Blood pressure on lower end currently. Hold any antihypertensives. Resolved Mild hypokalemia, supplement Decubitus, stage I noted on back, small and not infected. This was present on admission. SCDs for DVT prophylaxis Anticoagulation contraindicated secondary to anemia with concern of blood loss Attestations Medical Necessity Statement*: Needs continued hospitalization for close follow-up of GI bleeding requiring transfusion, C. difficile colitis, severe weakness. 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
[2021-02-20] MEDS: potassium chloride ER 20 mEq Tablet 40 MEQ PO ×2 (12:15→17:46)
[2021-02-20] MEDS: pantoprazole DR 40 mg Tablet PO (17:46)
[2021-02-21] VITALS: BP 169/71; PULSE 99; RESP 17; TEMP 36.8; O2SAT 95
[2021-02-21] MEDS: metroNIDAZOLE IV 500 MG/100 ML PREMIX 100 MG IV (02:23)
[2021-02-21 04:00] VITALS: BP 156/69; PULSE 98; RESP 17; TEMP 36.7; O2SAT 95
[2021-02-21 06:18] LABS: Basophils # 0.1 10^3/uL (0.0-0.1); Basophils % 0.5 %; Eosinophils % 0.1 %; Hematocrit 31.5 % (37.0-47.0); Hemoglobin 10.2 g/dL (11.5-15.3); Lymphocytes % 12.7 %; Mean Corpuscular HGB Conc 32.4 g/dL (30.0-36.0); Mean Corpuscular Hemoglobin 28.9 pg (28.0-34.0); Mean Corpuscular Volume 89.2 fl (81-99); Mean Platelet Volume 10.1 fL (7.4-10.4); Monocytes # 1.5 10^3/uL (0.2-0.9); Monocytes % 9.8 %; Neutrophils # 11.85 10^3/uL (1.8-7.7); Neutrophils % 75.8 %; Nucleated Red Blood Cells # 0.1 /100WBC; Nucleated Red Blood Cells % 0.8 %; Platelet Count 246 10^3/cmm (130-400); Red Blood Count 3.53 10^6/uL (4.1-5.3); Red Cell Distribution Width 15.5 % (12.1-15.1); White Blood Count 15.6 10^3/uL (4.0-10.0)
[2021-02-21 06:54] LABS: Alanine Aminotransferase 11 U/L (0-33); Alkaline Phosphatase 73 IU/L (35-105); Anion Gap 16.6 (5-19); Aspartate Amino Transferase 37 U/L (0-32); Blood Urea Nitrogen 14 mg/dL (8-23); Calcium 8.5 mg/dL (8.5-10.5); Carbon Dioxide 16 mmol/L (22-29); Chloride 112 mmol/L (98-107); Globulin 1.8 g/dL (1.3-4.6); Glucose 93 mg/dL (65-115); Magnesium 1.6 mg/dL (1.7-2.3); Osmolality Calculated 290 mOsm/kg (285-295); Potassium 4.6 mmol/L (3.5-5.1); Sodium 140 mmol/L (136-145); Total Bilirubin 0.4 mg/dL (0.15-1.2); Total Protein 4.8 g/dL (6.6-8.7)
--- NOTE | 2021-02-21 07:12 | XR_ITS ---
WS: [id number] Portable AP upright chest, 02/21/2021 Clinical Data: cough Comparison: Portable chest, 09/27/2020. Findings: No nodules, masses or effusions are seen. The heart is normal. The pulmonary vascularity is not increased. No pneumonia or pneumothorax is seen. The aortic arch and descending thoracic aorta s how tortuosity. The patient has had an anterior cervical disc fusion and posterior cervical fusion. T here is calcification over the right humeral head from bursitis.. XR/XR chest 1V portable [id number] Impression: Atherosclerosis.
[2021-02-21 07:15] VITALS: BP 161/87; PULSE 77; RESP 16; TEMP 36.8; O2SAT 96
[2021-02-21] MEDS: magnesium sulfate premix 2 GM/50 ML PIGGYBACK IV (07:55)
[2021-02-21] MEDS: pantoprazole DR 40 mg Tablet PO ×2 (09:17→17:43)
[2021-02-21] MEDS: duloxetine 20 mg Capsule PO (09:17)
--- NOTE | 2021-02-21 10:28 | PM.PN ---
Subjective Subjective: Interval history: Gabriella reports she is feeling okay today. Physical therapy is working with her getting her to a toilet. She has had an occasional liquid stool, small amount that is dark. Medications: Reviewed: Yes Vitals/I&O/Wt Last Vital Signs Temp 98.3 F 02/21/21 07:15 Pulse 77 02/21/21 07:15 Resp 16 02/21/21 07:15 BP 161/87 02/21/21 07:15 Pulse Ox 96 02/21/21 07:15 02/20/21 02/21/21 02/21/21 22:59 06:59 14:59 Intake Total 600 / 1282.5 1060 / 2342.5 170 / 170 Balance 600 / 682.5 1060 / 1742.5 170 / 170 Physical Exam Narrative: EXAM NARRATIVE: General exam no distress, more alert and interactive Neck is supple Cardiovascular regular rate and rhythm without murmur Lungs clear Abdomen is soft, positive bowel sounds Extremities no cyanosis clubbing or edema Urinary Catheter Management^: [place]: Cath Placed During This Visit: yes Reason for Continuing Indwelling Catheter: Acute Urinary Retention or Obstruction Urinary Catheter Date of Insertion: 02/17/21 Urinary Catheter Time of Insertion: 20:30 Data : 02/21/21 05:35 02/21/21 05:35 A&P Assessment and plan (1) Acute colitis: C. difficile is positive Continue vancomycin by mouth. She has lost IV access will so we will discontinue Flagyl. At this point she appears to be clinically improving and should not need it. Associated with some dark stools. EGD performed 02/19 demonstrated gastritis but no active bleeding. Status: Acute (2) Generalized weakness: Therapy consultations Secondary to severity of weakness may require penitentiary facility placement. Status: Acute (3) Anemia: She is not iron deficient, which may increase the likelihood that this is acute blood loss anemia that has occurred, perhaps superimposed on chronic process Stool Hemoccult was positive Endoscopy demonstrated gastritis, but no active bleeding Currently on Protonix twice daily by mouth She has required 2 units of packed red blood cells during the hospitalization for symptomatic anemia Holding all antiplatelets and anticoagulation Status: Acute (4) Hypomagnesemia: Supplemented 02/18. Now normal Status: Acute Additional A&P Information Enlarged ventricles on CT scan. This brings up possibility of normal pressure hydrocephalus. Will need outpatient neurology consultation. History of coronary artery disease. Not sure why she is not on statin. Peripheral vascular disease. Secondary to significant anemia hold aspirin. Not sure why she is not on statin. Hypertension. Borderline hypotension currently. Blood pressure on lower end currently. Hold any antihypertensives. Resolved Mild hypokalemia, supplemented and normal Hypomagnesemia, supplemented today Decubitus, stage I noted on back, small and not infected. This was present on admission. SCDs for DVT prophylaxis Anticoagulation contraindicated secondary to anemia with concern of blood loss Chest x-ray was repeated today, secondary to occasional cough. No pneumonia was present. Attestations Medical Necessity Statement*: Needs continued hospitalization for close support, fall prevention, treatment of C. difficile colitis and anemia pending placement. 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
[2021-02-21 11:25] VITALS: BP 136/77; PULSE 99; RESP 17; TEMP 36.6; O2SAT 90
[2021-02-21 15:56] VITALS: BP 109/57; PULSE 81; RESP 17; TEMP 37; O2SAT 97
[2021-02-21 20:00] VITALS: BP 114/72; PULSE 90; RESP 16; TEMP 36.7; O2SAT 94
[2021-02-22] VITALS: BP 137/71; PULSE 79; RESP 18; TEMP 37; O2SAT 90
[2021-02-22 04:00] VITALS: BP 162/76; PULSE 102; RESP 22; TEMP 37; O2SAT 94
[2021-02-22 05:50] LABS: Basophils % 0.3 %; Eosinophils # 0.1 10^3/uL (0.0-0.8); Eosinophils % 0.4 %; Hematocrit 34.8 % (37.0-47.0); Hemoglobin 11.1 g/dL (11.5-15.3); Lymphocytes # 1.8 10^3/uL (0.8-4.8); Lymphocytes % 14.2 %; Mean Corpuscular HGB Conc 31.9 g/dL (30.0-36.0); Mean Corpuscular Volume 94.1 fl (81-99); Mean Platelet Volume 9.8 fL (7.4-10.4); Monocytes # 1.4 10^3/uL (0.2-0.9); Monocytes % 10.9 %; Neutrophils % 73.5 %; Nucleated Red Blood Cells # 0.1 /100WBC; Nucleated Red Blood Cells % 0.4 %; Platelet Count 270 10^3/cmm (130-400); Red Cell Distribution Width 16.1 % (12.1-15.1); White Blood Count 12.9 10^3/uL (4.0-10.0)
[2021-02-22 06:11] LABS: Blood Urea Nitrogen 11 mg/dL (8-23); Calcium 8.5 mg/dL (8.5-10.5); Carbon Dioxide 18 mmol/L (22-29); Chloride 109 mmol/L (98-107); Creatinine Clr Calc Pharmacy 42.0639; Glucose 91 mg/dL (65-115); Osmolality Calculated 287 mOsm/kg (285-295); Sodium 139 mmol/L (136-145)
[2021-02-22 06:16] LABS: Anion Gap 15.9 (5-19); Potassium 3.9 mmol/L (3.5-5.1)
[2021-02-22 07:32] VITALS: BP 152/78; PULSE 82; RESP 16; TEMP 36.9; O2SAT 95
--- NOTE | 2021-02-22 08:18 | PC.SOCIAL ---
IMM update IMM updated with patient's . Verbalized an understanding. Initialled, dated, timed, and placed in chart.
[2021-02-22] MEDS: duloxetine 20 mg Capsule PO (08:43)
[2021-02-22] MEDS: pantoprazole DR 40 mg Tablet PO (08:43)
[2021-02-22 11:26] VITALS: BP 132/65; PULSE 88; RESP 16; TEMP 36.8; O2SAT 94
--- NOTE | 2021-02-22 13:03 | P.DS_ITS ---
Discharge Providers Date of Admission: 02/19/21 09:44 Date of Discharge: February 22, 2021 Attending Provider at Admission: Leesa Henry Attending Provider at Discharge: Stepan Espinoza MD Primary Care Provider: Crystal Mckee Diagnoses at Discharge Discharge Diagnosis (1) Acute colitis: Status: Acute (2) Generalized weakness: Status: Acute (3) Anemia: Status: Acute (4) Hypomagnesemia: Status: Acute Reason for Visit Reason for Visit: WEAKNESS Hospital Course Hospital Course 75-year-old female with a past medical history significant for hypertension, peripheral arterial disease status post fem-pop bypass, coronary artery disease, 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 Patient was admitted to [facility] for weakness, secondary to acute C. difficile colitis, and acute anemia For acute colitis, C. difficile positive, managed with IV Flagyl, vancomycin, clinically improved, discharged on p.o. vancomycin for 8 remaining days For anemia, ferritin and iron were on the lower end of normal, Hemoccult was positive, endoscopy revealed gastritis, no active bleeding, required 2 units of PRBC during her hospital admission, hemoglobin remained stable, discharged on Protonix 20 twice daily. With follow-up general surgery as outpatient for consideration of colonoscopy. Holding all antiplatelets and anticoagulation on discharge. Advised longterm to monitor hemoglobin on a weekly basis as outpatient. CT scan of the head did show enlarged ventricles, possible normal pressure hydrocephalus, follow-up with neurology as outpatient. Did have lower blood pressure during hospitalization, discontinue lisinopril on discharge. Did have decubitus ulcers stage I on the back, general wound care Physical Exam Const: COMMON NORMALS: no acute distress and patient oriented x3 Resp: COMMON NORMALS: normal respiratory effort, No retractions, No use of accessory muscles and clear to auscultation bilaterally AUSCULTATION: clear to auscultation bilaterally Cardio: COMMON NORMALS: regular rate, regular rhythm, S1 normal heart sound present and S2 normal heart sound present RATE: regular rate RHYTHM: regular rhythm HEART SOUNDS: S1 normal heart sound present and S2 normal heart sound present GI: COMMON NORMALS: Normal to inspection, nondistended, normoactive bowel sounds present, Soft to palpation and non-tender PALPATION: Yes Soft to palpation Extremity: COMMON NORMALS: no pedal edema Neuro: COMMON NORMALS: patient oriented x3 Psych: COMMON NORMALS: mental status grossly normal Urinary Catheter Management^: [place]: Cath Placed During This Visit: yes Reason for Continuing Indwelling Catheter: Acute Urinary Retention or Obstruction Urinary Catheter Date of Insertion: 02/17/21 Urinary Catheter Time of Insertion: 20:30 Discharge Data Data Completed and Pending: Completed Studies During Hospitalization Category Date Time Status CT abdomen pelvis w con* [id number] Urge nt Cat Scan 02/17/21 20:[address] head wo con* [id number] Urgent Cat Scan 02/17/21 19:34 Completed XR chest 1V celina ble [id number] Routine Exams 02/21/21 07:12 Completed Pending at discharge Category Date Time Status Blood Culture Sta t Lab 02/17/21 20:10 Results Leukocyte Reduced RBC Routine Lab 02/19/21 09:12 Results SARS Covid-2 Anti gen Routine Lab 02/22/21 12:41 Uncollected Type and Screen R outine Lab 02/19/21 09:12 Results Labs from last 24 hours 02/22/21 02/22/21 04:57 04:57 WBC 12.9 H RBC 3.70 L Hgb 11.1 L Hct 34.8 L MCV 94.1 D MCH 30.0 MCHC 31.9 RDW 16.1 H Plt Count 270 MPV 9.8 Neut % (Auto) 73.5 Lymph % (Auto) 14.2 [place] % (Auto) 10.9 Eos % (Auto) 0.4 Baso % (Auto) 0.3 Neut # (Auto) 9.50 H Lymph # (Auto) 1.8 [place] # (Auto) 1.4 H Eos # (Auto) 0.1 Baso # (Auto) 0.0 Nucleated RBC % (a uto) 0.4 Nucleated RBCs # 0.1 Sodium 139 Potassium 3.9 Chloride 109 H Carbon Dioxide 18 L Anion Gap 15.9 BUN 11 Creatinine 0.8 GFR Calculation Not Reportable Glucose 91 Calculated Osmolal ity 287 Calcium 8.5 Vitals: Last Vital Signs Temp 98.2 F 02/22/21 11:26 Pulse 88 02/22/21 11:26 Resp 16 02/22/21 11:26 BP 132/65 02/22/21 11:26 Pulse Ox 94 02/22/21 11:26 Discharge Plan Discharge Patient Disposition: Xfer SNF Condition: Stable Prescriptions: New pantoprazole 40 mg Tablet,Delayed Release (Dr/Ec) 40 mg PO BID 30 Days Qty: 60 RF: 0 vancomycin [Vancocin] 250 mg capsule 250 mg PO Q6H 8 Days Qty: 32 RF: 0 Continued terbinafine HCl [Lamisil AT] 1 % cream 1 applic topical BID PRN (Reason: unknown) RF: 0 mupirocin 2 % ointment 1 applic topical TID PRN (Reason: unknown) RF: 0 pramipexole [Mirapex] 0.125 mg tablet 0.125 mg PO QPM RF: 0 furosemide 40 mg tablet 40 mg PO DAILY PRN (Reason: Edema) RF: 0 tramadol 50 mg tablet 100 mg PO BID PRN (Reason: Pain) RF: 0 magnesium citrate Solution 150 ml PO BID PRN (Reason: constipation) Qty: 296 RF: 2 oxybutynin chloride 5 mg tablet 5 mg PO BEDTIME RF: 0 duloxetine 20 mg capsule,delayed release(DR/EC) 20 mg PO DAILY RF: 0 Stool Softener 100 mg Tablet 200 mg PO DAILY RF: 0 Vitamin D3 125 mcg (5,000 unit) Tablet 125 mcg PO DAILY RF: 0 amlodipine 5 mg tablet 5 mg PO DAILY RF: 0 Miralax 17 gram/dose powder 17 g PO DAILY PRN (Reason: Constipation) RF: 0 Discontinued omeprazole 20 mg capsule,delayed release(DR/EC) 20 mg PO BID PRN (Reason: Heartburn) RF: 0 naproxen 500 mg tablet 500 mg PO BID RF: 0 aspirin 81 mg Tablet,Delayed Release (Dr/Ec) 81 mg PO QAM RF: 0 lisinopril 10 mg tablet 10 mg PO DAILY RF: 0 Discharge Orders: Discharge Order (Routine); Ordered 02/22/21 Ordered By: Stepan Espinoza Referrals: Kayla Nevarez MD [Physician] - 1 month (nph ) Andrzej Meehan MD [Physician] - 1 month (anemia, colonsocopy) Crystal Mckee [Primary Care Provider] - Discharge Diet: Cardiac Discharge Activity: Resume usual activity Patient Instructions: GI Discharge Instructions, Opioid Safety Activity Restrictions/Additional Instructions: -Please follow-up with general surgery as outpatient for consideration of colonoscopy -Please continue vancomycin p.o. for the next 8 days -Monitor for fevers, chills, nausea, vomiting -Please follow-up with oncology as outpatient for anemia -monitor hemoglobin weekly as outpatient for anemia -Avoid all blood thinners Discharge Attestations Time Spent in Discharge Care*: less than 30 min Quality Metrics Clinical Quality Measures During this hospital stay, did patient experience: None Coding Level of Care Code Acute Chg FW DC note Diagnoses Acute colitis K52.9 Generalized weakness R53.1 Anemia D64.9 Hypomagnesemia E83.42
[2021-02-22 13:39] VITALS: O2SAT 94
[2021-02-22 15:01] LABS: SARS Covid-2 Antigen Negative (Negative)
[2021-02-22 15:56] VITALS: BP 134/72; PULSE 82; RESP 16; TEMP 36.7; O2SAT 97
== END 2021-02-22 17:31 | disposition skilled nursing facility (03) | DRG 372 ==
LOC: ER 21:58 → MEDSURG 22:03
PROVIDERS: Internal Medicine; Surgery; Admitting Provider Hospitalist; Emergency Provider Emergency Medicine; PCP Nurse Practitioner Family; Visit Provider Family Medicine
PROC: 0DJ08ZZ Inspection of Upper Intestinal Tract, Via Natural or Artificial Opening Endoscopic (ICD-10-PCS; CPT 43235; principal; 2021-02-19 11:30)
DX: A04.72 Enterocolitis due to Clostridium difficile, not specified as recurrent (principal); D62 Acute posthemorrhagic anemia; M79.7 Fibromyalgia; I12.9 Hypertensive chronic kidney disease with stage 1 through stage 4 chronic kidney disease, or unspecified chronic kidney disease; N18.30 Chronic kidney disease, stage 3 unspecified; Z87.891 Personal history of nicotine dependence; I73.9 Peripheral vascular disease, unspecified; Z98.890 Other specified postprocedural states; I25.10 Atherosclerotic heart disease of native coronary artery without angina pectoris; G25.81 Restless legs syndrome; Z87.440 Personal history of urinary (tract) infections; G93.89 Other specified disorders of brain; E78.5 Hyperlipidemia, unspecified; E83.42 Hypomagnesemia; E87.6 Hypokalemia; L89.151 Pressure ulcer of sacral region, stage 1; L89.152 Pressure ulcer of sacral region, stage 2; R19.5 Other fecal abnormalities; K29.70 Gastritis, unspecified, without bleeding; K44.9 Diaphragmatic hernia without obstruction or gangrene
CPT/HCPCS: 36415; 36416; 36430; 43235; 51702; 70450; 71045; 74177; 80048; 80053; 81001; 82274; 82607; 82728; 82746; 82962; 83540; 83550; 83605; 83690; 83735; 84145; 84484; 85014; 85018; 85025; 85610; 85730; 86850; 86900; 86920; 87040; 87426; 87493; 93005; 94664; 96365; 96372; 96375; 97116; 97161; 97165; 97530; 97535; 99285; C9113; G0378; J0744; J1170; J1650; J2370; J3370; J3475; J3490; J7030; P9016; Q9967; S0030

== ENCOUNTER → 2021-02-27 15:58 | Outpatient (BNVA) | payer MEDICARE, SELFPAY | PROVIDERS: PCP Nurse Practitioner Family; Referring Provider Family Medicine; Visit Provider Orthopaedic Surgery | DX: S42.202D Unspecified fracture of upper end of left humerus, subsequent encounter for fracture with routine healing (principal); W19.XXXD Unspecified fall, subsequent encounter | CPT/HCPCS: 73030; 73110 ==